=== PATIENT | male | born 1945 | race Caucasian/White ===

== ENCOUNTER 2016-11-28 05:39 | Emergency (ER) | payer MEDICARE, OTHER ==
--- NOTE | 2016-11-28 05:49 | ED ---
Fall HPI - General Chief Complaint: Fall Stated Complaint: fall Time Seen by Provider: 11/28/16 05:39 Source: patient, EMS, RN notes reviewed Mode of arrival: EMS - History of Present Illness Initial Comments: This is a 71-year-old male who states he slipped on a wet floor and fell he complains of pain in his left shoulder neck and some head pain. He denies any loss of function denies any loss of consciousness no other injuries are reported. He was brought in by EMS. MD Complaint: fall - Related Data Home Medications Medication Instructions Recorded Confirmed Albuterol Sulfate [Proair Hfa] 2 puff INHALATION RT-Q4H PRN 10/05/15 03/19/16 Ezetimibe [Zetia] 10 mg PO DAILY 10/05/15 03/19/16 FLUoxetine HCL [PROzac] 40 mg PO DAILY 10/05/15 03/19/16 Insulin Glargine [Lantus] 25 unit SQ DAILY 10/05/15 03/19/16 Lisinopril [Prinivil] 20 mg PO QAM 10/05/15 03/19/16 Loratadine [Claritin] 10 mg PO DAILY 10/05/15 03/19/16 Nitroglycerin Sl Tabs [Nitrostat] 0.4 mg SUBLINGUAL Q5M PRN 10/05/15 03/19/16 Omeprazole [PriLOSEC] 20 mg PO DAILY 10/05/15 03/19/16 Propylene Glycol/Peg 400/Pf 1 drop BOTH EYES BID PRN 10/05/15 03/19/16 [Systane 0.3-0.4% Eye Drops] Sennosides-Docusate Sodium 1 tab PO QAM 10/05/15 03/19/16 [Senokot-S] hydrALAZINE HCL [Apresoline] 10 mg PO BID 10/05/15 03/19/16 metFORMIN HCL [metFORMIN HCL ER] 1,500 mg PO DAILY 10/05/15 03/19/16 Acetaminophen [Tylenol] 500 mg PO Q6H PRN 02/05/16 03/19/16 Atenolol [Tenormin] 50 mg PO DAILY 02/05/16 03/19/16 Certa-Chhaya S R 1 tab PO DAILY 02/05/16 03/19/16 Cholecalciferol [Vitamin D3] 2,000 unit PO DAILY 02/05/16 03/19/16 guaiFENesin [Mucinex] 600 mg PO BID 02/05/16 03/19/16 Budesonide-Formot 160-4.5 Mcg 2 puff INHALATION RT-BID 03/19/16 03/19/16 [Symbicort 160-4.5 Mcg Inhaler] Ipratropium-Albuterol Nebulize 3 ml INHALATION RT-Q4H PRN 03/19/16 03/19/16 [Duoneb 0.5 mg-3 mg/3 ml Soln] Meloxicam [Meloxicam] 15 mg PO DAILY 03/19/16 03/19/16 Perphenazine [Perphenazine] 8 mg PO DAILY 03/19/16 03/19/16 predniSONE See Taper PO DAILY 03/19/16 03/19/16 Previous Rx's Medication Instructions Recorded Furosemide [Lasix] 20 mg PO BID #60 tab 02/08/16 Ciprofloxacin HCl [Cipro] 500 mg PO Q12HR #20 tablet 03/19/16 predniSONE 20 mg PO BID #14 tab 03/19/16 Ibuprofen [Motrin] 800 mg PO Q6HR PRN #20 tab 11/28/16 Allergies Allergy/AdvReac Type Severity Reaction Status Date / Time cephalexin monohydrate Allergy Unknown Verified 03/19/16 13:37 [From Keflex] Penicillins Allergy Unknown Verified 03/19/16 13:37 Review of Systems ROS Statement: Those systems with pertinent positive or pertinent negative responses have been documented in the HPI. ROS Other: All systems not noted in ROS Statement are negative. Past Medical History Past Medical History: COPD, Diabetes Mellitus, GERD/Reflux, Hyperlipidemia Additional Past Medical History / Comment(s): dry eyes, Myalgia, Type 2 DM History of Any Multi-Drug Resistant Organisms: None Reported Past Surgical History: Cholecystectomy Past Anesthesia/Blood Transfusion Reactions: No Reported Reaction Past Psychological History: No Psychological Hx Reported, Depression, Schizophrenia Smoking Status: Current every day smoker Past Alcohol Use History: None Reported Additional Past Alcohol Use History / Comment(s): smokes: 1ppd Past Drug Use History: None Reported - Past Family History Mother History Unknown: Yes Father History Unknown: Yes General Exam - General Exam Comments Initial Comments: This is a well-developed well-nourished awake alert oriented 3 male he does demonstrate a [place] Coma Scale of 15 General appearance: alert, in no apparent distress Head exam: Present: normocephalic, normal inspection, other (Tenderness palpation over the occipital scalp on the left side.) Eye exam: Present: normal appearance, PERRL, EOMI. Absent: scleral icterus, conjunctival injection, periorbital swelling ENT exam: Present: normal exam, mucous membranes moist Neck exam: Present: normal inspection, tenderness, other (Tenderness over left lateral neck musculature no spinous process tenderness. Patient does have a cervical collar on.). Absent: lymphadenopathy Respiratory exam: Present: normal lung sounds bilaterally, chest wall tenderness (Left-sided chest wall tenderness no ecchymosis step-off or crepitation). Absent: respiratory distress, wheezes, rales, rhonchi, stridor Cardiovascular Exam: Present: regular rate, normal rhythm, normal heart sounds. Absent: systolic murmur, diastolic murmur, rubs, gallop, clicks GI/Abdominal exam: Present: soft, normal bowel sounds. Absent: distended, tenderness, guarding, rebound, rigid Rectal exam: Present: deferred Extremities exam: Present: tenderness (Tenderness palpation of left shoulder no definite deformity no definite no definite subluxation step-off or crepitation. Patient is in a sling with a left upper extremity limited range of motion secondary to pain no tenderness of the elbow or forearm or hand the other extremities are nontraumatic), normal capillary refill. Absent: full ROM, pedal edema, joint swelling, calf tenderness Back exam: Present: normal inspection Neurological exam: Present: alert, oriented X3, CN II-XII intact Psychiatric exam: Present: normal affect, normal mood Course Vital Signs 11/28/16 05:43 Temperature 97.7 F Pulse Rate 85 Respiratory 16 Rate Blood Pressure 167/86 O2 Sat by Pulse 98 Oximetry Medical Decision Making - Medical Decision Making I did discuss the findings with the patient he will be discharged with sling and appropriate pain medication is a follow-up orthopedics. - Radiology Data Radiology results: report reviewed (I did review the x-rays and reports are pending there is evidence of a proximal humerus fracture. No evidence of any subluxation. She has ribs show no definite evidence of fracture. CAT scan is unremarkable as per the report and evaluation.), image reviewed Disposition Clinical Impression: Fall, Closed fracture of left proximal humerus Disposition: HOME SELF-CARE Condition: Good Instructions: Fall Prevention for Older Adults (ED), Proximal Humerus Fracture (ED) Prescriptions: Ibuprofen [Motrin] 800 mg PO Q6HR PRN #20 tab PRN Reason: Pain Referrals: Gertrude El DO [Primary Care Provider] - 1-2 days Wesley Peters DO [Doctor of Osteopathic Medicine] - 1-2 days
--- NOTE | 2016-11-28 06:19 | CT ---
EXAM: CT Head Without Intravenous Contrast. CLINICAL HISTORY: Pain TECHNIQUE: Axial computed tomography images of the head/brain without intravenous contrast. CTDI is 57.4 mGy and DLP is 1150.5 mGy-cm This CT exam was performed using one or more of the following dose reduction techniques: automated exposure control, adjustment of the mA and/or kV according to patient size, and/or use of iterative reconstruction technique. COMPARISON: No relevant prior studies available. FINDINGS: Brain: No evidence of acute infarct, hemorrhage, mass or edema. Chronic small vessel skin disease and senescent changes. Ventricles: Unremarkable. No ventriculomegaly. Bones/joints: Age interval fracture of the right nasal bone. Soft tissues: Unremarkable. Sinuses: Minimal mucosal thickening in the paranasal sinuses. Mastoid air cells: Unremarkable as visualized. No mastoid effusion. IMPRESSION: No acute findings. EXAM: CT Cervical Spine Without Intravenous Contrast. CLINICAL HISTORY: Pain TECHNIQUE: Axial computed tomography images of the cervical spine without intravenous contrast. CTDI is 35.9 mGy and DLP is 756.3 mGy-cm This CT exam was performed using one or more of the following dose reduction techniques: automated exposure control, adjustment of the mA and/or kV according to patient size, and/or use of iterative reconstruction technique. COMPARISON: No relevant prior studies available. FINDINGS: Vertebrae: Unremarkable. No acute fracture. Discs/spinal canal/neural foramina: Multilevel degenerative changes. No spinal canal stenosis. Soft tissues: Unremarkable. Lung apices: Emphysematous changes. IMPRESSION: No acute findings.
[2016-11-28] MEDS ORDERED: ACETAMINOPHEN TAB 500 MG TAB PO STA (07:32)
[2016-11-28 07:53] VITALS: BP 162/79; PULSE 80; RESP 18; TEMP 97.8
--- NOTE | 2016-11-28 08:19 | XR ---
EXAMINATION TYPE: PA chest and left rib series XR shoulder complete 3 views LT DATE OF EXAM: 11/28/2016 7:02 AM COMPARISON: Chest radiograph 03/19/2016 HISTORY: 71-year-old male with pain after fall FINDINGS: Chest and left RIBS: Heart remains mildly enlarged with diffuse interstitial prominence. Left base is underpenetrated and not well assessed. No appreciable pneumothorax or significant pleural effusion. No displaced left rib fracture. Left shoulder: AC joint appears congruent and intact. There is a minimally displaced fracture of the greater tubero sity. No additional acute fracture seen. IMPRESSION: 1. Chest: Similar mild cardiomegaly and chronic appearing changes. Correlate to exclude mild pulmonar y vascular congestion. The left base is underpenetrated and not well assessed. 2. Left ribs: No displaced left rib fracture seen. 3. Left shoulder: Minimally displaced fracture of the greater tuberosity. Note that this can serve as a functional rotator cuff tear.
== END 2016-11-28 08:44 | disposition home or self-care (01) ==
LOC: EC 05:39
DX: S42.252A Displaced fracture of greater tuberosity of left humerus, initial encounter for closed fracture (principal); M54.2 Cervicalgia; R51 Headache; R07.89 Other chest pain; E78.5 Hyperlipidemia, unspecified; E11.9 Type 2 diabetes mellitus without complications; K21.9 Gastro-esophageal reflux disease without esophagitis; J44.9 Chronic obstructive pulmonary disease, unspecified; F20.9 Schizophrenia, unspecified; F32.9 Major depressive disorder, single episode, unspecified; F17.200 Nicotine dependence, unspecified, uncomplicated; Z79.1 Long term (current) use of non-steroidal anti-inflammatories (NSAID); Z79.4 Long term (current) use of insulin; Z79.51 Long term (current) use of inhaled steroids; Z79.899 Other long term (current) drug therapy; Z88.0 Allergy status to penicillin; Z88.1 Allergy status to other antibiotic agents; Z87.39 Personal history of other diseases of the musculoskeletal system and connective tissue; W01.0XXA Fall on same level from slipping, tripping and stumbling without subsequent striking against object, initial encounter
CPT/HCPCS: 70450; 72125; 99284

== ENCOUNTER 2016-12-05 08:09 | Inpatient (IN) | payer MEDICARE, OTHER ==
[2016-12-05 08:43] LABS: Basophils % (A) 0 %; CH 32.3; CHCM 33.3; Eosinophils # (A) 0.1 k/uL (0-0.7); Eosinophils % (A) 2 %; Luc # (Auto) 0.15; Luc % (Auto) 2; Lymphocytes # (A) 1.1 k/uL (1.0-4.8); Lymphocytes % (A) 16 %; MCH 31.7 pg (25.0-35.0); MCHC 32.5 g/dL (31.0-37.0); MCV 97.5 fL (80.0-100.0); Mean Platelet Volume 6.8; Monocytes # (A) 0.6 k/uL (0-1.0); Monocytes % (A) 9 %; Neutrophils % (A) 71 %; RBC 4.11 m/uL (4.30-5.90); RDW 14.1 % (11.5-15.5); WBC 7.1 k/uL (3.8-10.6); WBC (Perox) 7.61
[2016-12-05 08:54] LABS: ALT 39 U/L (21-72); AST 27 U/L (17-59); Alkaline Phosphatase 74 U/L (38-126); Anion Gap 9 mmol/L; Blood Urea Nitrogen 26 mg/dL (9-20); Calcium 9.8 mg/dL (8.4-10.2); Carbon Dioxide 27 mmol/L (22-30); Chloride 99 mmol/L (98-107); Glucose 159 mg/dL (74-99); Magnesium 1.5 mg/dL (1.6-2.3); Non-African American GFR(MDRD) >60 (>60 ml/min/1.73 sqM); Potassium 4.9 mmol/L (3.5-5.1); Sodium 135 mmol/L (137-145); Total Bilirubin 0.7 mg/dL (0.2-1.3); Total Protein 6.8 g/dL (6.3-8.2)
--- NOTE | 2016-12-05 09:00 | ED ---
General Adult HPI - General Chief complaint: Chest Pain Stated complaint: chest pain RUBA Time Seen by Provider: 12/05/16 08:33 Source: patient, RN notes reviewed, old records reviewed Mode of arrival: wheelchair Limitations: no limitations - History of Present Illness Initial comments: This is a 71-year-old male here today for evaluation of chest pain and rib pain fall. Weakness. Patient has history of heart disease. He also has history of COPD diabetes and high cholesterol. Patient is unsure of any recent cardiac evaluation. No fevers. No cough or congestion. Patient does from fall have bruising and contusion to left rib cage, left arm. He states that is painful for him. Patient is a baseline poor historian, and appears to trouble and difficulty with speech and breathing during conversation. History is otherwise obtained from EMS and patient's chart - Related Data Home Medications Medication Instructions Recorded Confirmed Albuterol Sulfate [Proair Hfa] 2 puff INHALATION RT-Q4H PRN 10/05/15 12/05/16 Ezetimibe [Zetia] 10 mg PO DAILY 10/05/15 12/05/16 FLUoxetine HCL [PROzac] 40 mg PO DAILY 10/05/15 12/05/16 Insulin Glargine [Lantus] 30 unit SQ DAILY 10/05/15 12/05/16 Loratadine [Claritin] 10 mg PO DAILY 10/05/15 12/05/16 Nitroglycerin Sl Tabs [Nitrostat] 0.4 mg SUBLINGUAL Q5M PRN 10/05/15 12/05/16 Omeprazole [PriLOSEC] 20 mg PO DAILY 10/05/15 12/05/16 Propylene Glycol/Peg 400/Pf 1 drop BOTH EYES BID PRN 10/05/15 12/05/16 [Systane 0.3-0.4% Eye Drops] Sennosides-Docusate Sodium 1 tab PO QAM 10/05/15 12/05/16 [Senokot-S] hydrALAZINE HCL [Apresoline] 10 mg PO TID 10/05/15 12/05/16 metFORMIN HCL [metFORMIN HCL ER] 1,500 mg PO DAILY 10/05/15 12/05/16 Atenolol [Tenormin] 50 mg PO DAILY 02/05/16 12/05/16 Certa-Chhaya S R 1 tab PO DAILY 02/05/16 12/05/16 Cholecalciferol [Vitamin D3] 5,000 unit PO DAILY 02/05/16 12/05/16 guaiFENesin [Mucinex] 600 mg PO BID 02/05/16 12/05/16 Budesonide-Formot 160-4.5 Mcg 2 puff INHALATION RT-BID 03/19/16 12/05/16 [Symbicort 160-4.5 Mcg Inhaler] Ipratropium-Albuterol Nebulize 3 ml INHALATION RT-Q4H PRN 03/19/16 12/05/16 [Duoneb 0.5 mg-3 mg/3 ml Soln] Meloxicam [Meloxicam] 15 mg PO DAILY 03/19/16 12/05/16 Isosorbide Mononitrate 20 mg PO BID@0800,1500 11/28/16 12/05/16 Lisinopril [Zestril] 40 mg PO DAILY 11/28/16 12/05/16 Perphenazine [Trilafon] 4 mg PO DAILY@1700 11/28/16 12/05/16 Perphenazine [Trilafon] 8 mg PO DAILY 11/28/16 12/05/16 Simvastatin [Zocor] 20 mg PO HS 11/28/16 12/05/16 Tiotropium 18 Mcg/Puff [Spiriva] 1 cap INHALATION RT-DAILY 11/28/16 12/05/16 Acetaminophen Tab [Tylenol Tab] 500 mg PO Q6H PRN 12/05/16 12/05/16 Furosemide [Lasix] 20 mg PO BID@0800,1600 12/05/16 12/05/16 Allergies Allergy/AdvReac Type Severity Reaction Status Date / Time cephalexin monohydrate Allergy Unknown Verified 12/05/16 09:31 [From Keflex] Penicillins Allergy Unknown Verified 12/05/16 09:31 Review of Systems ROS Statement: Those systems with pertinent positive or pertinent negative responses have been documented in the HPI. ROS Other: All systems not noted in ROS Statement are negative. Past Medical History Past Medical History: COPD, Diabetes Mellitus, GERD/Reflux, Hyperlipidemia Additional Past Medical History / Comment(s): dry eyes, Myalgia, Type 2 DM History of Any Multi-Drug Resistant Organisms: None Reported Past Surgical History: Cholecystectomy Past Anesthesia/Blood Transfusion Reactions: No Reported Reaction Past Psychological History: No Psychological Hx Reported, Depression, Schizophrenia Smoking Status: Current every day smoker Past Alcohol Use History: None Reported Additional Past Alcohol Use History / Comment(s): smokes: 1ppd Past Drug Use History: None Reported - Past Family History Mother History Unknown: Yes Father History Unknown: Yes General Exam - General Exam Comments Initial Comments: Left arm ecchymosis left chest wall ecchymosis Limitations: no limitations General appearance: alert, in no apparent distress Head exam: Present: atraumatic, normocephalic, normal inspection Eye exam: Present: normal appearance, PERRL, EOMI. Absent: scleral icterus, conjunctival injection, periorbital swelling ENT exam: Present: normal exam, mucous membranes moist Neck exam: Present: normal inspection. Absent: tenderness, meningismus, lymphadenopathy Respiratory exam: Present: normal lung sounds bilaterally. Absent: respiratory distress, wheezes, rales, rhonchi, stridor Cardiovascular Exam: Present: regular rate, normal rhythm, normal heart sounds. Absent: systolic murmur, diastolic murmur, rubs, gallop, clicks GI/Abdominal exam: Present: soft, normal bowel sounds. Absent: distended, tenderness, guarding, rebound, rigid Extremities exam: Present: normal inspection, full ROM, normal capillary refill. Absent: tenderness, pedal edema, joint swelling, calf tenderness Back exam: Present: normal inspection Neurological exam: Present: alert, oriented X3, CN II-XII intact Psychiatric exam: Present: normal affect, normal mood Skin exam: Present: warm, dry, intact, normal color. Absent: rash Course Vital Signs 12/05/16 12/05/16 08:24 08:37 Temperature 97.1 F L Pulse Rate 77 Respiratory 16 24 Rate Blood Pressure 131/78 O2 Sat by Pulse 93 L Oximetry - Reevaluation(s) Reevaluation #1: 12/05/16 10:17 Patient survey with chest pain, EKG Findings - EKG Comments: EKG Findings:: EKG shows normal sinus rhythm questionable T-wave inversion in anterolateral leads, rate of 74, PA 164, QRS 72, QTC 428. Repeat. EKG shows similar morphology to an initial EKG, normal sinus rhythm rate of 65, PA 158, QRS 92, QTC 426 Medical Decision Making - Medical Decision Making 71 Eric for evaluation of chest pain chest pressure. Patient be admitted for cardiac observation and evaluation. Patient also mildly short of breath, will put on when necessary breathing treatments. Patient will be admitted for serial troponins and cardiac observation - Lab Data Result diagrams: 12/05/16 08:31 12/05/16 08:31 Lab Results 12/05/16 12/05/16 12/05/16 Range/Units 08:31 08:31 08:31 WBC 7.1 (3.8-10.6) k/uL RBC 4.11 L (4.30-5.90) m/uL Hgb 13.0 (13.0-17.5) gm/dL Hct 40.0 (39.0-53.0) % MCV 97.5 (80.0-100.0) fL MCH 31.7 (25.0-35.0) pg MCHC 32.5 (31.0-37.0) g/dL RDW 14.1 (11.5-15.5) % Plt Count 225 (150-450) k/uL Neutrophils % 71 % Lymphocytes % 16 % Monocytes % 9 % Eosinophils % 2 % Basophils % 0 % Neutrophils # 5.0 (1.3-7.7) k/uL Lymphocytes # 1.1 (1.0-4.8) k/uL Monocytes # 0.6 (0-1.0) k/uL Eosinophils # 0.1 (0-0.7) k/uL Basophils # 0.0 (0-0.2) k/uL PT (9.0-12.0) sec INR (<1.1) APTT (22.0-30.0) sec Sodium 135 L (137-145) mmol/L Potassium 4.9 (3.5-5.1) mmol/L Chloride 99 (98-107) mmol/L Carbon Dioxide 27 (22-30) mmol/L Anion Gap 9 mmol/L BUN 26 H (9-20) mg/dL Creatinine 1.07 (0.66-1.25) mg/dL Est GFR (MDRD) Af Amer >60 (>60 ml/min/1.73 sqM) Est GFR (MDRD) Non-Af >60 (>60 ml/min/1.73 sqM) Glucose 159 H (74-99) mg/dL Calcium 9.8 (8.4-10.2) mg/dL Magnesium 1.5 L (1.6-2.3) mg/dL Total Bilirubin 0.7 (0.2-1.3) mg/dL AST 27 (17-59) U/L ALT 39 (21-72) U/L Alkaline Phosphatase 74 (38-126) U/L Total Creatine Kinase 209 H (55-170) U/L CK-MB (CK-2) 4.6 H* (0.0-2.4) ng/mL CK-MB (CK-2) Rel Index 2.2 Troponin I <0.012 (0.000-0.034) ng/mL NT-Pro-B Natriuret Pep pg/mL Total Protein 6.8 (6.3-8.2) g/dL Albumin 3.7 (3.5-5.0) g/dL Lipase 46 (23-300) U/L 12/05/16 12/05/16 Range/Units 08:31 08:31 WBC (3.8-10.6) k/uL RBC (4.30-5.90) m/uL Hgb (13.0-17.5) gm/dL Hct (39.0-53.0) % MCV (80.0-100.0) fL MCH (25.0-35.0) pg MCHC (31.0-37.0) g/dL RDW (11.5-15.5) % Plt Count (150-450) k/uL Neutrophils % % Lymphocytes % % Monocytes % % Eosinophils % % Basophils % % Neutrophils # (1.3-7.7) k/uL Lymphocytes # (1.0-4.8) k/uL Monocytes # (0-1.0) k/uL Eosinophils # (0-0.7) k/uL Basophils # (0-0.2) k/uL PT 11.2 (9.0-12.0) sec INR 1.1 (<1.1) APTT 25.9 (22.0-30.0) sec Sodium (137-145) mmol/L Potassium (3.5-5.1) mmol/L Chloride (98-107) mmol/L Carbon Dioxide (22-30) mmol/L Anion Gap mmol/L BUN (9-20) mg/dL Creatinine (0.66-1.25) mg/dL Est GFR (MDRD) Af Amer (>60 ml/min/1.73 sqM) Est GFR (MDRD) Non-Af (>60 ml/min/1.73 sqM) Glucose (74-99) mg/dL Calcium (8.4-10.2) mg/dL Magnesium (1.6-2.3) mg/dL Total Bilirubin (0.2-1.3) mg/dL AST (17-59) U/L ALT (21-72) U/L Alkaline Phosphatase (38-126) U/L Total Creatine Kinase (55-170) U/L CK-MB (CK-2) (0.0-2.4) ng/mL CK-MB (CK-2) Rel Index Troponin I (0.000-0.034) ng/mL NT-Pro-B Natriuret Pep 816 pg/mL Total Protein (6.3-8.2) g/dL Albumin (3.5-5.0) g/dL Lipase (23-300) U/L - Radiology Data Radiology results: report reviewed (Chest x-ray is negative for acute disease), image reviewed Critical Care Time Critical Care Time: Yes Total Critical Care Time: 31 Disposition Clinical Impression: Chest pain, CHF (congestive heart failure), Dyspnea Disposition: ADMITTED IP TO THIS [facility] Condition: Undetermined Referrals: Gertrude El DO [Primary Care Provider] - 1-2 days
[2016-12-05 09:02] LABS: INR 1.1 (<1.1); Partial Thromboplastin Time 25.9 sec (22.0-30.0); Prothrombin Time 11.2 sec (9.0-12.0)
[2016-12-05 09:07] LABS: Creatine Kinase 209 U/L (55-170)
[2016-12-05 09:21] LABS: Troponin I <0.012 ng/mL (0.000-0.034)
--- NOTE | 2016-12-05 09:24 | XR ---
EXAMINATION TYPE: XR chest 2V DATE OF EXAM: 12/05/2016 9:17 AM COMPARISON: NONE INDICATION: Chest pain TECHNIQUE: 2 view chest FINDINGS: The heart size is normal. The pulmonary vasculature is normal. The lungs are clear. Lateral view is limited artifact. IMPRESSION: 1. No acute pulmonary process.
[2016-12-05 09:27] LABS: Creatine Kinase MB 4.6 ng/mL (0.0-2.4)
[2016-12-05] MEDS ORDERED: HEPARIN SODIUM,PORCINE 5,000 UNIT/ML 1 ML VIAL IV ONE (10:37)
[2016-12-05] MEDS ORDERED: MORPHINE SULFATE 2 MG/ML SYRINGE IVP STA (10:37)
[2016-12-05] MEDS ORDERED: ASPIRIN 81 MG CHEW PO STA (10:37)
[2016-12-05] MEDS ORDERED: NITROGLYCERIN SL TABS 0.4 MG TAB SUBLINGUAL PRN ×2 (10:37→11:27)
[2016-12-05] MEDS: SODIUM CHLORIDE 0.9% 1,000 ML IV SCH (10:51)
[2016-12-05] MEDS: HEPARIN SODIUM,PORCINE/D5W PMX 25,000 UNIT in DEXTROSE/WATER 1 500ML.BAG IV SCH ×2 (10:51→17:35)
[2016-12-05] MEDS: MORPHINE SULFATE 4 MG/ML SYRINGE IV PRN ×3 (10:55→22:58)
[2016-12-05] MEDS ORDERED: ALBUTEROL NEBULIZED 2.5 MG/3 ML INHALATION PRN (11:27)
[2016-12-05] MEDS ORDERED: ARTIFICIAL TEARS-HYPROMELLOSE DROPS 15 ML BTL BOTH EYES PRN (11:27)
[2016-12-05] MEDS: EZETIMIBE 10 MG TAB PO SCH (11:57)
[2016-12-05] MEDS: ATENOLOL 50 MG TAB PO SCH (11:57)
[2016-12-05] MEDS: hydrALAZINE HCL 10 MG TAB PO SCH ×3 (11:58→22:41)
[2016-12-05] MEDS: guaiFENesin 600 MG TABLET.ER PO SCH ×2 (11:58→22:41)
[2016-12-05] MEDS: FLUoxetine HCL 20 MG CAP PO SCH (11:58)
[2016-12-05] MEDS: LISINOPRIL 20 MG TAB PO SCH (11:59)
[2016-12-05] MEDS: metFORMIN 500 MG TAB PO SCH ×3 (11:59→22:41)
[2016-12-05] MEDS: ISOSORBIDE MONONITRATE 20 MG TAB PO SCH ×2 (11:59→15:57)
[2016-12-05] MEDS: INSULIN GLARGINE 100 UNIT/ML 10 ML VIAL SQ SCH (11:59)
[2016-12-05] MEDS: PERPHENAZINE 4 MG TAB PO SCH ×2 (12:00→15:57)
[2016-12-05] MEDS: PANTOPRAZOLE 40 MG TABLET PO SCH (12:00)
[2016-12-05] MEDS: SENNOSIDES-DOCUSATE SODIUM 1 EACH TAB PO SCH (12:01)
[2016-12-05 12:18] LABS: Glucose,Whole Blood 144 mg/dL (75-99)
[2016-12-05 14:53] LABS: Creatine Kinase 150 U/L (55-170)
[2016-12-05 15:05] LABS: Creatine Kinase MB 3.5 ng/mL (0.0-2.4); Troponin I <0.012 ng/mL (0.000-0.034)
[2016-12-05] MEDS: FUROSEMIDE 20 MG TAB PO SCH (15:57)
[2016-12-05 17:14] LABS: Glucose,Whole Blood 156 mg/dL (75-99)
[2016-12-05] MEDS: HEPARIN SODIUM,PORCINE 5,000 UNIT/ML 1 ML VIAL IV PRN (17:34)
[2016-12-05] MEDS: SYMBICORT 160-4.5 MCG INHALER INHALATION SCH (19:28)
[2016-12-05 20:41] LABS: Glucose,Whole Blood 126 mg/dL (75-99)
[2016-12-05] MEDS: BUDESONIDE 1 MG/2 ML NEBU INHALATION SCH (22:33)
[2016-12-05] MEDS: IPRATROPIUM-ALBUTEROL 3 ML NEB INHALATION SCH (22:33)
[2016-12-05] MEDS: ATORVASTATIN 10 MG TAB PO SCH (22:41)
[2016-12-05] MEDS: NICOTINE 21MG/24HR PATCH TRANSDERM SCH (23:01)
[2016-12-05] MEDS: methylPREDNISolone SOD SUCCI 40 MG/ML 1 ML VIAL IV SCH (23:01)
[2016-12-05 23:14] LABS: Creatine Kinase 147 U/L (55-170)
[2016-12-05 23:28] LABS: Troponin I <0.012 ng/mL (0.000-0.034)
[2016-12-05 23:36] LABS: Creatine Kinase MB 3.1 ng/mL (0.0-2.4)
[2016-12-06] MEDS: IPRATROPIUM-ALBUTEROL 3 ML NEB INHALATION SCH ×6 (01:04→20:03)
[2016-12-06] MEDS: HEPARIN SODIUM,PORCINE 5,000 UNIT/ML 1 ML VIAL IV PRN (01:29)
[2016-12-06] MEDS: HEPARIN SODIUM,PORCINE/D5W PMX 25,000 UNIT in DEXTROSE/WATER 1 500ML.BAG IV SCH (06:05)
[2016-12-06 07:36] LABS: Glucose,Whole Blood 201 mg/dL (75-99)
[2016-12-06 07:38] LABS: Mean Platelet Volume 6.7
[2016-12-06 07:58] LABS: Cholesterol 136 mg/dL (<200); HDL Cholesterol 44 mg/dL (40-60); Triglycerides 120 mg/dL (<150)
[2016-12-06] MEDS: BUDESONIDE 1 MG/2 ML NEBU INHALATION SCH ×2 (10:07→20:03)
[2016-12-06] MEDS: SYMBICORT 160-4.5 MCG INHALER INHALATION SCH ×2 (10:07→20:03)
--- NOTE | 2016-12-06 10:40 | P.CRDCN ---
History of Present Illness Consult date: 12/06/16 History of present illness: This is a 70-year-old gentleman with history of hypertension, diabetes, dyslipidemia, and also COPD who came to the hospital with complaints of left arm and chest pain. Apparently he fell and developed some contusion and ecchymosis involving the left upper arm. X-rays done on the showed some possible fracture or tear in the rotator cuff. The the pain in the chest is aggravated by deep breathing associated some local tenderness. His pains appear to be atypical. His EKG showed nonspecific T-wave changes. His cardiac enzymes are negative. A computed tomography scan done in the past showed some calcification in the coronary arteries. It appears that patient may have underlying ischemic heart disease but his pains are noncardiac in nature. Patient is already on beta blockers, nitrates and lipid-lowering agents. He should be on antiplatelet agent. No further cardiac workup is suggested at this time Review of Systems As per the chart Past Medical History Past Medical History: Heart Failure, COPD, Diabetes Mellitus, Fibromyalgia, GERD /Reflux, Hyperlipidemia, Hypertension Additional Past Medical History / Comment(s): IDDM type II, neuropathy bilateral feet with past sores, refuses home oxygen and updraft tx, L eye thick cataract, bilateral dry eyes, fatty tumor posterior neck, recent fall 1 week ago with L humerus fracture-not casted-uses a sling-orhtopedic physician instructed he can use arm minimally-no lifting shoulder up or picking up weight , possible hx of kidney stones per pt. History of Any Multi-Drug Resistant Organisms: None Reported Past Surgical History: Cholecystectomy Additional Past Surgical History / Comment(s): Possible hx of surgery for kidney stones per pt. Past Anesthesia/Blood Transfusion Reactions: No Reported Reaction Past Psychological History: Depression, Schizophrenia Additional Psychological History / Comment(s): Pt resides at [facility]. He ambulates without device. He has visiting physician and visiting nurse. He refuses home O2 and home updraft txs. Pt recently learned his 2 out of state sisters are selling the family home. This has made him sad and when he is sad, he gets more obstenate with meds etc per caretakers. His sisters send him letters and care packages often. He writes letters as well. Smoking Status: Current every day smoker Past Alcohol Use History: None Reported Additional Past Alcohol Use History / Comment(s): Smokes cigarettes : 1.5 ppd, occasional cigar and pipe. Past Drug Use History: None Reported - Past Family History Mother History Unknown: Yes Father History Unknown: Yes Medications and Allergies Home Medications Medication Instructions Recorded Confirmed Type Albuterol Sulfate [Proair Hfa] 2 puff INHALATION RT-Q4H PRN 10/05/15 12/05/16 History Ezetimibe [Zetia] 10 mg PO DAILY 10/05/15 12/05/16 History FLUoxetine HCL [PROzac] 40 mg PO DAILY 10/05/15 12/05/16 History Insulin Glargine [Lantus] 30 unit SQ DAILY 10/05/15 12/05/16 History Loratadine [Claritin] 10 mg PO DAILY 10/05/15 12/05/16 History Nitroglycerin Sl Tabs [Nitrostat] 0.4 mg SUBLINGUAL Q5M PRN 10/05/15 12/05/16 History Omeprazole [PriLOSEC] 20 mg PO DAILY 10/05/15 12/05/16 History Propylene Glycol/Peg 400/Pf 1 drop BOTH EYES BID PRN 10/05/15 12/05/16 History [Systane 0.3-0.4% Eye Drops] Sennosides-Docusate Sodium 1 tab PO QAM 10/05/15 12/05/16 History [Senokot-S] hydrALAZINE HCL [Apresoline] 10 mg PO TID 10/05/15 12/05/16 History metFORMIN HCL [metFORMIN HCL ER] 1,500 mg PO DAILY 10/05/15 12/05/16 History Atenolol [Tenormin] 50 mg PO DAILY 02/05/16 12/05/16 History Certa-Chhaya S R 1 tab PO DAILY 02/05/16 12/05/16 History Cholecalciferol [Vitamin D3] 5,000 unit PO DAILY 02/05/16 12/05/16 History guaiFENesin [Mucinex] 600 mg PO BID 02/05/16 12/05/16 History Budesonide-Formot 160-4.5 Mcg 2 puff INHALATION RT-BID 03/19/16 12/05/16 History [Symbicort 160-4.5 Mcg Inhaler] Ipratropium-Albuterol Nebulize 3 ml INHALATION RT-Q4H PRN 03/19/16 12/05/16 History [Duoneb 0.5 mg-3 mg/3 ml Soln] Meloxicam [Meloxicam] 15 mg PO DAILY 03/19/16 12/05/16 History Isosorbide Mononitrate 20 mg PO BID@0800,1500 11/28/16 12/05/16 History Lisinopril [Zestril] 40 mg PO DAILY 11/28/16 12/05/16 History Perphenazine [Trilafon] 4 mg PO DAILY@1700 11/28/16 12/05/16 History Perphenazine [Trilafon] 8 mg PO DAILY 11/28/16 12/05/16 History Simvastatin [Zocor] 20 mg PO HS 11/28/16 12/05/16 History Tiotropium 18 Mcg/Puff [Spiriva] 1 cap INHALATION RT-DAILY 11/28/16 12/05/16 History Acetaminophen Tab [Tylenol Tab] 500 mg PO Q6H PRN 12/05/16 12/05/16 History Furosemide [Lasix] 20 mg PO BID@0800,1600 12/05/16 12/05/16 History Paliperidone IM [Invega Sustenna] 234 mg IM DIRECTED 12/06/16 12/06/16 History Allergies Allergy/AdvReac Type Severity Reaction Status Date / Time cephalexin monohydrate Allergy Unknown Verified 12/05/16 09:31 [From Keflex] Penicillins Allergy Unknown Verified 12/05/16 09:31 Physical Exam Vitals: Vital Signs Temp Pulse Pulse Pulse Resp BP BP 12/06/16 08:00 98.9 F 67 18 129/82 12/06/16 04:00 97.9 F 81 24 138/88 12/06/16 00:00 98.5 F 68 22 144/79 12/05/16 20:30 98.2 F 73 18 150/71 12/05/16 20:00 20 12/05/16 16:06 77 12/05/16 16:00 97.8 F 77 18 167/107 12/05/16 12:00 70 18 12/05/16 11:50 98.7 F 70 18 133/74 12/05/16 11:00 66 18 138/80 Pulse Ox 12/06/16 08:00 94 L 12/06/16 04:00 93 L 12/06/16 00:00 93 L 12/05/16 20:30 95 12/05/16 20:00 12/05/16 16:06 94 L 12/05/16 16:00 94 L 12/05/16 12:00 12/05/16 11:50 96 12/05/16 11:00 95 Intake and Output 12/05/16 12/06/16 12/06/16 22:59 06:59 14:59 Intake Total 465.161 6728.103 Output Total 1200 450 Balance 374.667 -193.897 -450 Intake: IV 270 Heparin Sodium,Porcine/ 270 D5w Pmx 25,000 unit In Dextrose/Water 1 500ml. bag @ 8.819 UNITS/KG/HR 20 mls/hr IV .Q24H [facility] Rx #:[id number] Intake, IV Titration 134.667 536.103 Amount Heparin Sodium,Porcine/ 134.667 356.103 D5w Pmx 25,000 unit In Dextrose/Water 1 500ml. bag @ 8.819 UNITS/KG/HR 20 mls/hr IV .Q24H [facility] Rx #:[id number] Sodium Chloride 0.9% 1, 180 000 ml @ 20 mls/hr IV . Q24H [facility] Rx#:[id number] Oral 240 200 Output: Urine 1200 450 Other: Voiding Method Toilet Toilet Toilet GENERAL EXAM: Patient is alert and oriented and doesn't appear to be in any acute distress. Sitting in the chair HEENT: Normocephalic. Normal reaction of pupils, equal size, normal range of extraocular motion. No erythema or exudates in the throat. NECK: No masses, no nuchal rigidity. CHEST: Tenderness on the left side LUNGS: Expiratory rhonchi and wheezing HEART: Distant heart sounds ABDOMEN: No hepatosplenomegaly, normal bowel sounds, no guarding or rigidity. SKIN: No rashes CENTRAL NERVOUS SYSTEM: No focal deficits. EXTREMITIES: Ecchymosis and resolving hematoma left upper arm Results 12/06/16 07:02 12/05/16 08:31 Cardiac Enzymes 12/05/16 12/05/16 Range/Units 14:18 22:23 CK-MB (CK-2) 3.5 H* 3.1 H* (0.0-2.4) ng/mL Troponin I <0.012 <0.012 (0.000-0.034) ng/mL Coagulation 12/05/16 12/05/16 12/06/16 Range/Units 16:44 22:23 07:02 APTT 32.7 H 40.4 H 43.8 H (22.0-30.0) sec Lipids 12/06/16 Range/Units 07:02 Triglycerides 120 (<150) mg/dL Cholesterol 136 (<200) mg/dL HDL Cholesterol 44 (40-60) mg/dL CBC 12/06/16 Range/Units 07:02 Plt Count 258 (150-450) k/uL Current Medications Generic Name Dose Route Start Last Admin Trade Name Freq PRN Reason Stop Dose Admin Albuterol Sulfate 2.5 mg 12/05/16 11:27 12/05/16 16:03 Ventolin Nebulized INHALATION 2.5 mg RT-Q4H PRN Administration Wheezing Albuterol/Ipratropium 3 ml 12/05/16 22:30 12/06/16 10:08 Duoneb 0.5 Mg-3 Mg/3 Ml Soln INHALATION Not Given RT-Q4H [facility] Artificial Tears 1 drops 12/05/16 11:27 Artificial Tear Drops BOTH EYES BID PRN Dry Eye(s) Aspirin 325 mg 12/06/16 09:00 Aspirin PO DAILY [facility] Atenolol 50 mg 12/05/16 11:45 12/05/16 11:57 Tenormin PO Not Given DAILY [facility] Atorvastatin Calcium 10 mg 12/05/16 21:00 12/05/16 22:41 Lipitor PO 10 mg HS [facility] Administration Budesonide 1 mg 12/05/16 22:30 12/06/16 10:07 Pulmicort INHALATION Not Given RT-BID [facility] Budesonide/Formoterol Fumarate 2 puff 12/05/16 20:00 12/06/16 10:07 Symbicort 160-4.5 Mcg Inhaler INHALATION Not Given RT-BID [facility] Ezetimibe 10 mg 12/05/16 11:45 12/05/16 11:57 Zetia PO Not Given DAILY [facility] Fluoxetine HCl 40 mg 12/05/16 11:45 12/05/16 11:58 Prozac PO Not Given DAILY [facility] Furosemide 20 mg 12/05/16 16:00 12/05/16 15:57 Lasix PO 20 mg BID@0800,1600 [facility] Administration Guaifenesin 600 mg 12/05/16 11:45 12/05/16 22:41 Mucinex PO 600 mg BID [facility] Administration Heparin Sodium (Porcine) 0 unit 12/05/16 10:37 12/06/16 01:29 Heparin IV 2,550 unit Q6HR PRN Administration Low PTT Protocol Hydralazine HCl 10 mg 12/05/16 11:45 12/05/16 22:41 Apresoline PO 10 mg TID [facility] Administration Heparin Sodium/Dextrose 25,000 500 mls @ 20 mls/hr 12/05/16 10:45 12/06/16 06 :05 unit/ IV Solution IV 13.8 units/kg/hr .Q24H [facility] 31.29 mls/hr Protocol Administration 8.819 UNITS/KG/HR Sodium Chloride 1,000 mls @ 20 mls/hr 12/05/16 10:45 12/05/16 10:51 Saline 0.9% IV 20 mls/hr .Q24H [facility] Administration Insulin Glargine 30 unit 12/05/16 11:45 12/05/16 11:59 Lantus SQ Not Given DAILY [facility] Isosorbide Mononitrate 20 mg 12/05/16 11:45 12/05/16 15:57 Ismo PO 20 mg BID@0800,1500 [facility] Administration Lisinopril 40 mg 12/05/16 11:45 12/05/16 11:59 Zestril PO Not Given DAILY [facility] Metformin HCl 500 mg 12/05/16 11:45 12/05/16 22:41 Glucophage PO 500 mg TID [facility] Administration Methylprednisolone Sodium Succinate 40 mg 12/06/16 00:00 12/05/16 23:01 Solu-Medrol IV 40 mg Q8HR [facility] Administration Morphine Sulfate 4 mg 12/05/16 10:37 12/05/16 22:58 Morphine Sulfate (Inj) IV 4 mg Q4HR PRN Administration Chest Pain Nicotine 1 patch 12/05/16 22:30 12/05/16 23:01 Habitrol 21mg/24hr Patch TRANSDERM 1 patch DAILY [facility] Administration Nitroglycerin 0.4 mg 12/05/16 10:37 Nitrostat SUBLINGUAL Q5M PRN Chest Pain Pantoprazole Sodium 40 mg 12/05/16 11:45 12/05/16 12:00 Protonix PO Not Given AC-BRKFST [facility] Perphenazine 4 mg 12/05/16 17:00 12/05/16 15:57 Trilafon PO 4 mg DAILY@1700 [facility] Administration Perphenazine 8 mg 12/05/16 11:45 12/05/16 12:00 Trilafon PO Not Given DAILY [facility] Senna/Docusate Sodium 1 each 12/05/16 11:45 12/05/16 12:01 Senokot-S PO Not Given QAM [facility] Tiotropium Amelia 1 puff 12/06/16 08:00 Spiriva INHALATION RT-DAILY [facility] Intake and Output 12/05/16 12/06/16 12/06/16 22:59 06:59 14:59 Intake Total 677.022 8949.103 Output Total 1200 450 Balance 374.667 -193.897 -450 Intake: IV 270 Heparin Sodium,Porcine/ 270 D5w Pmx 25,000 unit In Dextrose/Water 1 500ml. bag @ 8.819 UNITS/KG/HR 20 mls/hr IV .Q24H [facility] Rx #:[id number] Intake, IV Titration 134.667 536.103 Amount Heparin Sodium,Porcine/ 134.667 356.103 D5w Pmx 25,000 unit In Dextrose/Water 1 500ml. bag @ 8.819 UNITS/KG/HR 20 mls/hr IV .Q24H [facility] Rx #:[id number] Sodium Chloride 0.9% 1, 180 000 ml @ 20 mls/hr IV . Q24H [facility] Rx#:[id number] Oral 240 200 Output: Urine 1200 450 Other: Voiding Method Toilet Toilet Toilet 12/06/16 07:02 EKG Interpretations (text) Sinus rhythm with nonspecific T-wave changes Assessment and Plan (1) CHF (congestive heart failure) Status: Acute (2) Chest pain Status: Acute (3) COPD exacerbation Status: Acute (4) Diabetes Status: Acute Plan: His chest pains are atypical and noncardiac. Cardiac enzymes are negative. Continue pain management and maximum medical therapy for coronary artery disease. Evaluation by pulmonary. No further cardiac workup at this time. Thank you
[2016-12-06] MEDS: metFORMIN 500 MG TAB PO SCH ×3 (10:45→21:57)
[2016-12-06] MEDS: methylPREDNISolone SOD SUCCI 40 MG/ML 1 ML VIAL IV SCH ×2 (10:45→16:06)
[2016-12-06] MEDS: NICOTINE 21MG/24HR PATCH TRANSDERM SCH (10:45)
[2016-12-06] MEDS: FLUoxetine HCL 20 MG CAP PO SCH (10:46)
[2016-12-06] MEDS: hydrALAZINE HCL 10 MG TAB PO SCH ×3 (10:46→21:57)
[2016-12-06] MEDS: PERPHENAZINE 4 MG TAB PO SCH ×2 (10:46→18:03)
[2016-12-06] MEDS: SENNOSIDES-DOCUSATE SODIUM 1 EACH TAB PO SCH (10:46)
[2016-12-06] MEDS: LISINOPRIL 20 MG TAB PO SCH (10:46)
[2016-12-06] MEDS: EZETIMIBE 10 MG TAB PO SCH (10:46)
[2016-12-06] MEDS: ATENOLOL 50 MG TAB PO SCH (10:46)
[2016-12-06] MEDS: FUROSEMIDE 20 MG TAB PO SCH ×2 (10:47→16:07)
[2016-12-06] MEDS: ISOSORBIDE MONONITRATE 20 MG TAB PO SCH ×2 (10:47→18:03)
[2016-12-06] MEDS: PANTOPRAZOLE 40 MG TABLET PO SCH (10:47)
[2016-12-06] MEDS: guaiFENesin 600 MG TABLET.ER PO SCH ×2 (10:47→21:57)
[2016-12-06] MEDS: ASPIRIN 325 MG TAB PO SCH (10:47)
--- NOTE | 2016-12-06 10:52 | HP ---
DATE OF ADMISSION: 12/05/2016 PRESENTING COMPLAINT: Short of breath, cough and some chest pain. HISTORY OF PRESENTING COMPLAINT: This is a 71-year-old patient of Dr. Kathia Elder who is a resident of [facility]. The patient's chronic stable medical conditions include CHF, diastolic dysfunction, aortic root dilatation 3.9 cm, diabetes type 2, GERD, hyperlipidemia, fibromyalgia, schizophrenia. Patient presented with multitude of systems. Apparently patient fell about 2 to 3 days ago and was in the ER. In fact, on 11/28/2016 patient was found to have a minimally displaced fracture of the greater tuberosity and has a left arm splint. The patient said he slipped on the floor when this happened. Patient now presents with some left-sided chest wall pain. No radiation. He is not sure if it is worse with movement but possibly so. Patient is also very congested, able to bring up some phlegm, not sure about the color, short of breath, wheezing at rest. Patient is a smoker, he says about a pack and a half day. Really feels weak and tired. REVIEW OF SYSTEMS: CONSTITUTIONAL: Weak, tired. HEENT: None. RESPIRATORY: As above. CARDIOVASCULAR: As above. GASTROINTESTINAL: Heartburn. GENITOURINARY: None. MUSCULOSKELETAL: Pain in the left shoulder. DERMATOLOGICAL: None. HEMATOLOGICAL: None. LYMPHATIC: None. PSYCHIATRY: History of schizophrenia. NEUROLOGICAL: None. 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 PAST SURGICAL HISTORY: Cholecystectomy, surgery for kidney stones. PAST PSYCHOLOGICAL HISTORY: History of depression, schizophrenia. SOCIAL HISTORY: Patient lives at [facility], ambulates normally without device. He has Visiting Physician. Apparently he needed to have home oxygen, but refused the same. Patient smokes at least a pack and a half day, cigars and pipe. No alcohol. FAMILY HISTORY: Patient does not remember. HOME MEDICATIONS: 1. Nitrostat 0.4 sublingual q.5 p.r.n. 2. DuoNeb q.4 p.r.n. 3. Albuterol 2 puffs q.4 p.r.n. 4. Tylenol 500 q.6 p.r.n. 5. Zocor 20 mg q.h.s. 6. Systane 0.3 and 0.4 eyedrops one drop to both eyes b.i.d. p.r.n. 7. Lasix 20 mg p.o. b.i.d. 8. Spiriva 1 capsule inhalation daily. 9. Lantus 30 units subcu daily. 10. Symbicort 160/4.5, 2 puffs b.i.d. 11. Hydralazine 10 mg p.o. t.i.d. 12. Mucinex 600 mg p.o. b.i.d. 13. Trilafon 8 mg p.o. daily and 4 mg at 5:00 p.m. 14. Imdur 20 mg b.i.d. 15. Senokot-S 1 tablet p.o. daily. 16. Meloxicam 50 mg p.o. daily. 17. Claritin 10 mg p.o. daily. 18. Zestril 40 mg p.o. daily. 19. Vitamin D3 1000 units p.o. daily. 20. Tenormin 50 mg p.o. daily. 21. Metformin 1500 mg p.o. daily. 22. Prilosec 20 mg p.o. daily. 23. Zetia 10 mg p.o. daily. 24. Prozac 40 mg p.o. daily. ALLERGIES: KEFLEX AND PENICILLIN. On examination, temperature 97.8, pulse 77, respiration 22, blood pressure 167/107, pulse ox 94% on 2-L. GENERAL APPEARANCE: Well built, BMI of 34.2, lying in bed, tired appearing. EYES: Pupils equal. Conjunctivae normal. HEENT: External appearance of nose and ears normal. Oral cavity missing dentition. NECK: JVD not raised. Mass not palpable. RESPIRATORY: Effort increased. LUNGS: Diminished breath sounds, prolonged expiration and wheezing. Some scattered crackles. CARDIOVASCULAR: First and second sounds normal. No edema. ABDOMEN: Distended, soft. Liver and spleen not palpable. LYMPHATIC: No lymph nodes palpable in neck or axilla. PSYCHIATRY: Patient is able to answer questions though rather slowly. NEUROLOGICAL: Pupils equal. Cranial nerves grossly intact. Moving all 4 limbs. EXTREMITIES: Left arm is in a sling. INVESTIGATIONS: White count 7.1, hemoglobin 13, potassium 4.9, BUN ( ), creatinine 1.09, troponin less than 0.012. Chest x-ray shows possible right-sided infiltrate in the middle lobe. ASSESSMENT: 1. Acute right middle lobe pneumonia, suspect gram-negative organism, present on admission. 2. Acute severe chronic obstructive pulmonary disease exacerbation the patient who is current smoker. 3. Chronic nicotine dependence. Patient is an active cigarette smoker. 4. Chronic congestive heart failure from diastolic dysfunction. 5. Diabetes mellitus type 2, chronically on insulin. 6. Gastroesophageal reflux disease. 7. Hyperlipidemia. 8. Fibromyalgia. 9. Schizophrenia. PLAN: Patient was started on nebulized bronchodilators, IV steroids, nebulized steroids. Also increase the dose of Mucinex. Patient advised against smoking, given a nicotine patch. Patient's chest pain is somewhat atypical. Will get a Cardiology opinion. Care was discussed with the patient.
[2016-12-06] MEDS: SODIUM CHLORIDE 0.9% 1,000 ML IV SCH (11:52)
[2016-12-06 12:24] LABS: Glucose,Whole Blood 266 mg/dL (75-99)
[2016-12-06] MEDS: TIOTROPIUM 18 MCG/PUFF INHALER INHALATION SCH (12:24)
[2016-12-06] MEDS: INSULIN GLARGINE 100 UNIT/ML 10 ML VIAL SQ SCH (12:43)
[2016-12-06] MEDS ORDERED: PALIPERIDONE IM 234 MG/1.5 ML SYG IM SCH (14:00)
[2016-12-06] MEDS: MORPHINE SULFATE 4 MG/ML SYRINGE IV PRN ×2 (16:06→22:08)
[2016-12-06 17:14] LABS: Glucose,Whole Blood 229 mg/dL (75-99)
--- NOTE | 2016-12-06 19:07 | PN ---
DATE OF SERVICE: 12/06/2016 PRESENTING COMPLAINT: Short of breath, cough. INTERVAL HISTORY: This patient was admitted with pneumonia, severe chronic obstructive pulmonary disease exacerbation and atypical chest pain. [place] to be more musculoskeletal. Patient's breathing only a shade better, did tolerate some diet. Still short of breath, cough, unable to expectorate. Review of systems done for constitutional, cardiovascular, GI, pulmonary; relevant findings as above. Current medications are reviewed that include nebulized bronchodilators every 4 hours, IV Solu-Medrol. On examination, temperature 98.7, pulse 73, respiratory rate 18, blood pressure 127/59, pulse ox 95% on room air. GENERAL APPEARANCE: Sitting up, tired-appearing. EYES: Pupils equal conjunctivae normal. NECK: JVD not raised. Mass not palpable. RESPIRATORY: Effort increased. LUNGS: Decreased breath sounds, prolonged expiration and wheezing. Decreased crackles. CARDIOVASCULAR: First and second sounds normal. No edema. ABDOMEN: Distended, soft. Liver and spleen not palpable. PSYCHIATRY: Answering simple questions. Patient is slow to respond. EXTREMITIES: Left arm in a sling. INVESTIGATIONS: Accu-Cheks are noted. ASSESSMENT: 1. Acute right lobe pneumonia, suspect gram-negative organism, present on admission. 2. Acute severe chronic obstructive pulmonary disease exacerbation in a smoker, slow to respond. 3. Chronic nicotine dependence. Patient is an active cigarette smoker. 4. Chronic congestive heart failure from diastolic dysfunction. 5. Diabetes mellitus type 2, chronically on insulin. 6. Gastroesophageal reflux disease. 7. Hyperlipidemia. 8. Fibromyalgia. 9. Schizophrenia. PLAN: Continue current medication and treatment plan, nebulized bronchodilators and steroids. Patient will need to be in the hospital for another 1 or 2 days. Patient again reminded not to smoke. Per cardiology no further work-up.
--- NOTE | 2016-12-06 20:23 | XR ---
EXAMINATION TYPE: XR chest 2V DATE OF EXAM: 12/06/2016 7:53 PM COMPARISON: 12/05/2016 HISTORY: Cough and congestion TECHNIQUE: Frontal and lateral views of the chest are obtained. FINDINGS: A new right middle lobe opacity obscures the right heart border and is seen within the ret rocardiac airspace on the lateral image. Additionally there is blunting of the left costophrenic angl e likely related to trace left pleural effusion. Pulmonary vasculature is unchanged with no evidence of pulmonary vascular congestion. Mild degenerative changes are seen at the visualized thoracic spine . There is generalized osteopenia. Cardiac size is unchanged and within normal limits. IMPRESSION: 1. New right middle lobe airspace disease, suspicious for pneumonia considering recent development an d clinical history. 2. Trace left pleural effusion.
[2016-12-06 21:02] LABS: Glucose,Whole Blood 246 mg/dL (75-99)
[2016-12-06] MEDS: ATORVASTATIN 10 MG TAB PO SCH (21:57)
--- NOTE | 2016-12-06 22:10 | CONS ---
DATE OF CONSULTATION: 12/06/2016 REASON FOR CONSULT: COPD. HISTORY OF PRESENT ILLNESS: Arturo Pereira is seen, evaluated, examined on the 3rd floor. Patient presented into the emergency department with problems associated with fall, chest pain, also has a bruising on the left arm as well. Patient has developed a per left rib as well as contusion to the left arm along with painful respiration. Patient is overall a poor historian. Most of the data has been on obtained from the chart. Review of the data revealed that patient is a resident of a longterm. He had a fall about 3 days ago, had fracture of greater tuberosity of left humerus, has been in a splint. Patient has been complaining of left-sided chest wall pain thought to be related to rib fracture, though. PAST MEDICAL HISTORY: Significant for congestive heart failure, chronic diastolic heart failure, history of dilated aortic root mood of 3.9 cm, type 2 diabetes mellitus, dyslipidemia, history of schizophrenia. PAST SURGICAL HISTORY: Status post cholecystectomy. ALLERGIES: KEFLEX AND PENICILLIN. Medications at home include: 1. Lasix 20 mg 2 times a day. 2. Tylenol as needed. 3. Spiriva 18 mcg once daily. 4. Zocor 20 mg daily. 5. Also on 5 Perphenazine 8 mg and 4 mg. 6. Zestril 40 mg daily. 7. Imdur 20 mg 2 times a day. 8. Also on DuoNeb unit dose 4 times a day. 9. Symbicort 160/4.5, 2 puffs 2 times a day. 10. Mucinex. 11. Vitamin D. 12. Tenormin 50 mg daily. 13. Metformin 1.5 g daily. 14. Hydralazine 10 mg 3 times a day. 15. Senokot also. REVIEW OF SYSTEMS: Unable to obtain at length. Overall, the patient is a poor historian, has been complaining of pain, though. FAMILY HISTORY AND SOCIAL HISTORY: Otherwise unremarkable and noncontributory. Patient does smoke 1 pack per day for about 35 to 40 years. On examination, her most recent vitals include blood pressure is 127/60, respirations 18, pulse 73, temperature 98, saturation 95% on room air. HEENT: Atraumatic, normocephalic. Pharynx clear. Narrow pharyngeal opening is present. NECK: Supple without lymphadenopathy. No jugular venous distention is present. No bruits present. LUNGS: Bilateral poor entry is present in the bases. Otherwise clear to auscultation. HEART: Regular rate and rhythm. S1 and S2 audible. ABDOMEN: Soft. No rebound or rigidity. EXTREMITIES: +1 peripheral pulses. Left upper extremity in splint. Current medications while in the hospital include: 1. Unit dose albuterol as needed. 2. DuoNeb unit dose 4 times a day. 3. Aspirin 325 mg a day. 4. Atenolol 50 mg daily. 5. Lipitor 10 mg daily. 6. Pulmicort 1 mg 2 times a day. 7. Symbicort 160/4.5, 2 times a day. 8. Zetia 10 mg daily. 9. Prozac 40 mg daily. 10. Lasix 20 mg 2 times a day. 11. Mucinex. 12. Subcu heparin. 13. Heparin drip as per protocol. 14. Hydralazine. 15. Lantus. 16. Also on Imdur. 17. Lisinopril. 18. Solu-Medrol 40 q.8 hourly. 19. Sliding scale insulin. 20. Morphine for pain control. 21. Protonix. 22. Senokot. 23. IV fluid KVO and 24. Spiriva once daily. Laboratory data and radiographic studies include EKG performed at the time of admission revealed normal sinus rhythm, some ST-T wave changes, inferior lateral lead has been noted. The repeat EKG performed in the emergency department, however, revealed normal sinus rhythm with anterior lateral ST segment and T wave nonspecific changes. Chest x-ray 12/05/2016: No acute pulmonary process has been seen. Patient already has been evaluated by Cardiovascular Services. They felt acute exacerbation of CHF, but however feel the chest pain is atypical and noncardiac. Other laboratory data reviewed which include white cell count of 7100, hemoglobin 13, hematocrit 40, platelet count of 225,000. PTT is 43.8. Chemistry otherwise is normal except for sodium 135, BUN is 26, creatinine 1.07. CK-MB is 3.1. Lipase 46. IMPRESSION: 1. Chest wall pain related to fall and bruising of the chest. Maybe occult rib fracture is. Present. Will repeat the chest x-ray and rib x-ray for tomorrow. Continue deep breathing exercises, incentive spirometry. Continue breathing treatments; however, can discontinue the Spiriva and the Symbicort. 2. Acute chronic obstructive pulmonary disease exacerbation. As above, will hold on starting antibiotics, as there is no clear-cut evidence of ongoing infection. Acute chronic obstructive pulmonary disease exacerbation may be an issue. 3. Congestive heart failure, acute dysfunction, maybe acute or diastolic heart failure and early congestive heart failure related to that. Patient has been continued on medical management. Cardiovascular Service is following. 4. History of extensive smoking and nicotine use. 5. Likely obstructive sleep apnea, to be evaluated further in outpatient setting. I agree with discontinuing the heparin drip for now. Will follow clinical course closely. Further recommendations pending. Plan of care as per clinical response of the patient.
[2016-12-07] MEDS: methylPREDNISolone SOD SUCCI 40 MG/ML 1 ML VIAL IV SCH ×3 (00:36→17:11)
--- NOTE | 2016-12-07 07:08 | XR ---
EXAMINATION TYPE: XR chest 2V DATE OF EXAM: 12/07/2016 7:01 AM COMPARISON: Chest x-ray from yesterday. HISTORY: Pneumonia progress study. TECHNIQUE: Frontal and lateral views of the chest are obtained. FINDINGS: There is chronic parenchymal changes seen bilaterally. There is improved aeration right mi ddle lobe. No new focal airspace opacity, pleural effusion, or pneumothorax is seen bilaterally. The cardiac silhouette size is stable and enlarged with atherosclerotic aortic knob. Multilevel spurring and spine is present. Cholecystectomy clips are noted on lateral view. IMPRESSION: Chronic parenchymal change with resolving right middle lobe infiltrate, no new infiltrat e is seen.
[2016-12-07 07:26] LABS: Basophils % (A) 0 %; CH 32.3; CHCM 32.9; Eosinophils % (A) 0 %; HDW 2.29; HGB 14.4 gm/dL (13.0-17.5); Luc # (Auto) 0.08; Luc % (Auto) 1; Lymphocytes # (A) 0.7 k/uL (1.0-4.8); Lymphocytes % (A) 7 %; MCH 32.3 pg (25.0-35.0); MCHC 32.6 g/dL (31.0-37.0); MCV 98.8 fL (80.0-100.0); Mean Platelet Volume 6.4; Monocytes # (A) 0.4 k/uL (0-1.0); Monocytes % (A) 4 %; Neutrophils # (A) 8.1 k/uL (1.3-7.7); Neutrophils % (A) 88 %; RBC 4.45 m/uL (4.30-5.90); RDW 14.2 % (11.5-15.5); WBC 9.2 k/uL (3.8-10.6); WBC (Perox) 9.14
[2016-12-07 07:38] LABS: Anion Gap 9 mmol/L; Blood Urea Nitrogen 34 mg/dL (9-20); Calcium 9.9 mg/dL (8.4-10.2); Carbon Dioxide 27 mmol/L (22-30); Chloride 99 mmol/L (98-107); Glucose 206 mg/dL (74-99); Non-African American GFR(MDRD) >60 (>60 ml/min/1.73 sqM); Potassium 4.6 mmol/L (3.5-5.1); Sodium 135 mmol/L (137-145)
[2016-12-07] MEDS: MORPHINE SULFATE 4 MG/ML SYRINGE IV PRN (07:52)
[2016-12-07 07:53] LABS: Glucose,Whole Blood 207 mg/dL (75-99)
[2016-12-07] MEDS: guaiFENesin 600 MG TABLET.ER PO SCH ×2 (07:54→20:22)
[2016-12-07] MEDS: PERPHENAZINE 4 MG TAB PO SCH ×2 (07:55→17:12)
[2016-12-07] MEDS: ISOSORBIDE MONONITRATE 20 MG TAB PO SCH ×2 (07:55→17:11)
[2016-12-07] MEDS: ATENOLOL 50 MG TAB PO SCH (07:55)
[2016-12-07] MEDS: FUROSEMIDE 20 MG TAB PO SCH ×2 (07:55→17:11)
[2016-12-07] MEDS: ASPIRIN 325 MG TAB PO SCH (07:55)
[2016-12-07] MEDS: metFORMIN 500 MG TAB PO SCH ×3 (07:56→20:22)
[2016-12-07] MEDS: FLUoxetine HCL 20 MG CAP PO SCH (07:56)
[2016-12-07] MEDS: hydrALAZINE HCL 10 MG TAB PO SCH (07:56)
[2016-12-07] MEDS: PANTOPRAZOLE 40 MG TABLET PO SCH (07:57)
[2016-12-07] MEDS: NICOTINE 21MG/24HR PATCH TRANSDERM SCH (07:57)
[2016-12-07] MEDS: LISINOPRIL 20 MG TAB PO SCH (07:57)
[2016-12-07] MEDS: INSULIN GLARGINE 100 UNIT/ML 10 ML VIAL SQ SCH (08:02)
[2016-12-07] MEDS: EZETIMIBE 10 MG TAB PO SCH (08:04)
[2016-12-07] MEDS: SODIUM CHLORIDE 0.9% 1,000 ML IV SCH (08:06)
[2016-12-07] MEDS: SENNOSIDES-DOCUSATE SODIUM 1 EACH TAB PO SCH (08:06)
[2016-12-07] MEDS: IPRATROPIUM-ALBUTEROL 3 ML NEB INHALATION SCH ×4 (08:17→20:12)
[2016-12-07] MEDS: BUDESONIDE 1 MG/2 ML NEBU INHALATION SCH ×2 (08:17→20:11)
[2016-12-07] MEDS: SYMBICORT 160-4.5 MCG INHALER INHALATION SCH (08:20)
[2016-12-07] MEDS: TIOTROPIUM 18 MCG/PUFF INHALER INHALATION SCH (08:21)
[2016-12-07 12:10] LABS: Glucose,Whole Blood 298 mg/dL (75-99)
--- NOTE | 2016-12-07 13:56 | PN ---
Patient is admitted for acute hypoxic respiratory failure which is believed to be secondary to congestive heart failure, chronic diastolic dysfunction with acute exacerbation, although patient was switched to oral Lasix at this point of time. Patient appears to have COPD exacerbation as well. As per Pulmonology, patient does not appear to have pneumonia, although I will start him on doxycycline for bronchitis. Patient had chest pain which was diagnosed as musculoskeletal by Cardiology. Patient has rhonchorous breath sounds and respiratory status does not appear significantly improved, although his oxygen saturations are better than yesterday. REVIEW OF SYSTEMS: CARDIOVASCULAR: No chest pain, no orthopnea, no PND, no palpitations. PULMONARY: No significant improvement in his respiratory status. GASTROINTESTINAL: No diarrhea, nausea or vomiting. No abdominal pain. Normoactive bowel sounds. NEUROLOGIC: No headaches, no weakness, no numbness. Medications were reviewed. PHYSICAL EXAMINATION: VITAL SIGNS: Temperature 97.5, pulse of 74, respiratory rate of 20, blood pressure 142/98. Saturating at 95% on room air. GENERAL: Morbidly obese. Excessively sleepy but oriented x3. HEENT: Pupils are round and equally reacting to light. EOMI. No scleral icterus. No conjunctival pallor. Normocephalic, atraumatic. No pharyngeal erythema. No thyromegaly. CARDIOVASCULAR: S1 and S2 present. No murmurs, rubs, or gallops. PULMONARY: Rhonchorous breath sounds. Minimal expiratory wheezing was appreciated. ABDOMEN: Soft, nontender, nondistended, normoactive bowel sounds. No palpable organomegaly. MUSCULOSKELETAL: No joint swelling or deformity. EXTREMITIES: No cyanosis, clubbing, or pedal edema. NEUROLOGICAL: Gross neurological examination did not reveal any focal deficits. SKIN: No rashes. LABORATORY DATA: CBC, CMP are abnormal for mildly elevated creatinine of 1.1, mildly elevated BUN from 26 to 34, mildly elevated glucose. ASSESSMENT AND PLAN: 1. Acute hypoxic respiratory failure believed to be secondary to chronic obstructive pulmonary disease exacerbation as well as chronic diastolic dysfunction with acute exacerbation. Continue with systemic steroids, inhalational treatments. Patient is on the euvolemic side, because of which I will continue with oral Lasix at this point of time. 2. Type 2 diabetes mellitus. Continue with present regimen. Blood sugars are a bit elevated because of systemic steroids. 3. Gastroesophageal reflux disease. 4. Hyperlipidemia. 5. Schizophrenia. 6. Fibromyalgia. For above-mentioned chronic medical problems, I will go ahead and continue his home medications.
--- NOTE | 2016-12-07 14:05 | P.PN ---
Subjective Principal diagnosis: Fall, chest pain Patient seen and examined covering for Dr. Mata. The patient is a poor historian and is from a senior living. According to the medical record the patient had a fall and is complaining of chest pain. The patient states that he is having pain today on his left arm and left chest. He says he occasionally coughs. Other history is difficult to obtain. Objective - Vital Signs Vital signs: Vital Signs Temp 97.5 F L 12/07/16 07:00 Pulse 80 12/07/16 08:27 Resp 20 12/07/16 07:00 BP 142/98 12/07/16 07:00 Pulse Ox 95 12/07/16 07:00 Intake & Output 12/06/16 12/07/16 12/07/16 18:59 06:59 18:59 Intake Total 600 Output Total 1100 900 Balance -500 -900 Weight 109.8 kg 112.5 kg Intake: Oral 600 Output: Urine 1100 900 Other: Voiding Method Toilet Urinal Urinal # Voids 1 - Exam Gen.: Patient is alert, no acute distress Cardiovascular: Regular rate and rhythm, S1/S2 Lungs: Coarse breath sounds bilaterally Abdomen: Soft nontender nondistended positive bowel sounds Extremities: + edema - Labs CBC & Chem 7: 12/07/16 07:10 12/07/16 07:10 Labs: Abnormal Lab Results - Last 24 Hours (Table) 12/06/16 12/06/16 12/07/16 Range/Units 17:10 20:59 07:10 Neutrophils # 8.1 H (1.3-7.7) k/uL Lymphocytes # 0.7 L (1.0-4.8) k/uL Sodium (137-145) mmol/L BUN (9-20) mg/dL Glucose (74-99) mg/dL POC Glucose (mg/dL) 229 H 246 H (75-99) mg/dL 12/07/16 12/07/16 12/07/16 Range/Units 07:10 07:48 12:03 Neutrophils # (1.3-7.7) k/uL Lymphocytes # (1.0-4.8) k/uL Sodium 135 L (137-145) mmol/L BUN 34 H (9-20) mg/dL Glucose 206 H (74-99) mg/dL POC Glucose (mg/dL) 207 H 298 H (75-99) mg/dL Assessment and Plan Plan: Chest wall pain secondary to fall and bruising New right middle lobe infiltrate Acute exacerbation of COPD Diastolic congestive heart failure, not acutely exacerbated Left humerus fracture Diabetes mellitus type 2 Possible underlying obstructive sleep apnea Active tobacco abuse GERD Dyslipidemia Schizophrenia Mild hyponatremia O2 to maintain saturation greater than or equal to 88% Duonebs and Pulmicort Discontinue Symbicort and Spiriva for now, ok to restart once patient is discharged Initiate nebulized Perforomist Steroid taper Mucinex Smoking cessation is highly recommended, Nicotine TD Incentive spirometry and pulmonary hygiene Continue ABX given new infiltrate on CXR Consult speech therapy for swallow evaluation Blood sugar control per primary team Pain control Outpatient pulmonary follow-up for PFT and PSG
[2016-12-07 17:25] LABS: Glucose,Whole Blood 200 mg/dL (75-99)
[2016-12-07] MEDS: FORMOTEROL FUMARATE 20 MCG/2 ML NEBU INHALATION SCH (20:11)
[2016-12-07] MEDS: ATORVASTATIN 10 MG TAB PO SCH (20:22)
[2016-12-07] MEDS: DOXYCYCLINE 50 MG CAP PO SCH (20:22)
[2016-12-07 20:56] LABS: Glucose,Whole Blood 222 mg/dL (75-99)
[2016-12-08] MEDS: methylPREDNISolone SOD SUCCI 40 MG/ML 1 ML VIAL IV SCH ×3 (00:26→21:16)
[2016-12-08 07:46] LABS: Glucose,Whole Blood 199 mg/dL (75-99)
[2016-12-08 07:52] LABS: Mean Platelet Volume 6.3
[2016-12-08 08:19] LABS: Anion Gap 14 mmol/L; Blood Urea Nitrogen 42 mg/dL (9-20); Carbon Dioxide 26 mmol/L (22-30); Chloride 97 mmol/L (98-107); Glucose 215 mg/dL (74-99); Non-African American GFR(MDRD) >60 (>60 ml/min/1.73 sqM); Sodium 137 mmol/L (137-145)
[2016-12-08] MEDS: BUDESONIDE 1 MG/2 ML NEBU INHALATION SCH ×2 (08:30→19:53)
[2016-12-08] MEDS: IPRATROPIUM-ALBUTEROL 3 ML NEB INHALATION SCH ×4 (08:30→19:53)
[2016-12-08] MEDS: FORMOTEROL FUMARATE 20 MCG/2 ML NEBU INHALATION SCH ×2 (08:30→19:53)
[2016-12-08] MEDS: NICOTINE 21MG/24HR PATCH TRANSDERM SCH (10:01)
[2016-12-08] MEDS: PANTOPRAZOLE 40 MG TABLET PO SCH (10:01)
[2016-12-08] MEDS: FUROSEMIDE 20 MG TAB PO SCH ×2 (10:02→15:16)
[2016-12-08] MEDS: ISOSORBIDE MONONITRATE 20 MG TAB PO SCH ×2 (10:02→15:16)
[2016-12-08] MEDS: ATENOLOL 50 MG TAB PO SCH (10:03)
[2016-12-08] MEDS: ASPIRIN 325 MG TAB PO SCH (10:03)
[2016-12-08] MEDS: DOXYCYCLINE 50 MG CAP PO SCH ×2 (10:03→21:16)
[2016-12-08] MEDS: FLUoxetine HCL 20 MG CAP PO SCH (10:04)
[2016-12-08] MEDS: guaiFENesin 600 MG TABLET.ER PO SCH ×2 (10:04→21:16)
[2016-12-08] MEDS: EZETIMIBE 10 MG TAB PO SCH (10:04)
[2016-12-08] MEDS: PERPHENAZINE 4 MG TAB PO SCH ×2 (10:05→17:37)
[2016-12-08] MEDS: LISINOPRIL 20 MG TAB PO SCH (10:05)
[2016-12-08] MEDS: INSULIN GLARGINE 100 UNIT/ML 10 ML VIAL SQ SCH (10:05)
[2016-12-08] MEDS: metFORMIN 500 MG TAB PO SCH ×3 (10:05→21:16)
[2016-12-08] MEDS: SENNOSIDES-DOCUSATE SODIUM 1 EACH TAB PO SCH (10:06)
[2016-12-08] MEDS: SODIUM CHLORIDE 0.9% 1,000 ML IV SCH (10:06)
--- NOTE | 2016-12-08 10:17 | PN ---
Patient is admitted with acute hypoxic respiratory failure, multifactorial secondary to congestive heart failure chronic diastolic dysfunction with acute exacerbation as well as super exacerbation. Patient's rhonchus breath sounds did improve. Patient appears to have overall improvement but although patient denies any clinically symptoms, he denies any such improvement. REVIEW OF SYSTEMS: CARDIOVASCULAR: No chest pain, no orthopnea, no PND, no palpitations. PULMONARY: Denied any shortness of breath. No cough or hemoptysis. GASTROINTESTINAL: No diarrhea, nausea or vomiting. No abdominal pain. Normoactive bowel sounds. NEUROLOGIC: No headaches, no weakness, no numbness. Medications were reviewed. PHYSICAL EXAMINATION: VITAL SIGNS: Temperature 97.1, pulse of 73, respiratory rate of 20, blood pressure is 157/96, saturating at 98% on room air. GENERAL: The patient is alert and oriented x3, not in any acute distress. Well developed, well nourished. HEENT: Pupils are round and equally reacting to light. EOMI. No scleral icterus. No conjunctival pallor. Normocephalic, atraumatic. No pharyngeal erythema. No thyromegaly. CARDIOVASCULAR: S1 and S2 present. No murmurs, rubs, or gallops. PULMONARY: Rhonchus breath sounds are still present, but significant improvement in air entry and wheezing. ABDOMEN: Soft, nontender, nondistended, normoactive bowel sounds. No palpable organomegaly. MUSCULOSKELETAL: No joint swelling or deformity. EXTREMITIES: No cyanosis, clubbing, or pedal edema. NEUROLOGICAL: Gross neurological examination did not reveal any focal deficits. SKIN: No rashes. LABORATORY DATA: BUN has gone up a little bit and creatinine improved. ASSESSMENT AND PLAN: 1. Acute hypoxic respiratory failure secondary to congestive heart failure, mostly chronic obstructive pulmonary disease acute exacerbation. Patient also has chronic diastolic dysfunction with acute exacerbation. 2. Type 2 diabetes mellitus. 3. Gastroesophageal reflux disease. 4. Hyperlipidemia. 5. Schizophrenia. 6. Fibromyalgia. PLAN: Continue with present medications. Will get PT and OT evaluation. Possibility of discharge tomorrow. Continue systemic steroids, inhalational treatments.
[2016-12-08 11:48] LABS: Glucose,Whole Blood 282 mg/dL (75-99)
--- NOTE | 2016-12-08 14:27 | P.PN ---
Subjective Principal diagnosis: Status post fall Patient seen and examined. Patient is apparently refusing his breathing treatments. He still has coarse breath sounds. It is 6. patient that he should do these breathing treatments to help his shortness of breath. He is agreeable. Objective - Vital Signs Vital signs: Vital Signs Temp 97.7 F 12/08/16 07:00 Pulse 73 12/08/16 08:00 Resp 20 12/08/16 08:00 BP 157/96 12/08/16 07:00 Pulse Ox 98 12/08/16 07:00 Intake & Output 12/07/16 12/08/16 12/08/16 18:59 06:59 18:59 Intake Total 240 Balance 240 Weight 108.5 kg Intake: Oral 240 Other: Voiding Method Urinal Urinal Urinal # Voids 3 1 - Exam Gen.: Patient is alert, no acute distress Cardiovascular: Regular rate and rhythm, S1/S2 Lungs: Coarse breath sounds bilaterally Abdomen: Soft nontender nondistended positive bowel sounds Extremities: + edema - Labs CBC & Chem 7: 12/08/16 07:29 12/08/16 07:29 Labs: Abnormal Lab Results - Last 24 Hours (Table) 12/07/16 12/07/16 12/08/16 Range/Units 17:23 20:36 07:29 Chloride 97 L (98-107) mmol/L BUN 42 H (9-20) mg/dL Glucose 215 H (74-99) mg/dL POC Glucose (mg/dL) 200 H 222 H (75-99) mg/dL 12/08/16 12/08/16 Range/Units 07:41 11:46 Chloride (98-107) mmol/L BUN (9-20) mg/dL Glucose (74-99) mg/dL POC Glucose (mg/dL) 199 H 282 H (75-99) mg/dL Assessment and Plan Plan: Chest wall pain secondary to fall and bruising Right middle lobe infiltrate Acute exacerbation of COPD Diastolic congestive heart failure, not acutely exacerbated Left humerus fracture Diabetes mellitus type 2 Possible underlying obstructive sleep apnea Active tobacco abuse GERD Dyslipidemia Schizophrenia Mild hyponatremia O2 to maintain saturation greater than or equal to 88% Duonebs and Pulmicort Discontinue Symbicort and Spiriva for now, ok to restart once patient is discharged Initiate nebulized Perforomist Steroid taper Mucinex Smoking cessation is highly recommended, Nicotine TD Incentive spirometry and pulmonary hygiene Continue ABX Consult speech therapy for swallow evaluation Blood sugar control per primary team Pain control Repeat CXR in AM Patient encouraged to use breathing treatments as ordered Outpatient pulmonary follow-up for PFT and PSG
[2016-12-08 17:06] LABS: Glucose,Whole Blood 233 mg/dL (75-99)
[2016-12-08] MEDS: MORPHINE SULFATE 4 MG/ML SYRINGE IV PRN (17:38)
[2016-12-08] MEDS: ATORVASTATIN 10 MG TAB PO SCH (21:16)
[2016-12-08 22:00] LABS: Glucose,Whole Blood 268 mg/dL (75-99)
[2016-12-09 07:32] LABS: Glucose,Whole Blood 224 mg/dL (75-99)
[2016-12-09 07:48] VITALS: BP 166/96; RESP 16; TEMP 97.2
[2016-12-09] MEDS: INSULIN GLARGINE 100 UNIT/ML 10 ML VIAL SQ SCH (08:15)
[2016-12-09] MEDS: NICOTINE 21MG/24HR PATCH TRANSDERM SCH (08:16)
[2016-12-09] MEDS: methylPREDNISolone SOD SUCCI 40 MG/ML 1 ML VIAL IV SCH (08:17)
[2016-12-09] MEDS: guaiFENesin 600 MG TABLET.ER PO SCH (08:18)
[2016-12-09] MEDS: LISINOPRIL 20 MG TAB PO SCH (08:18)
[2016-12-09] MEDS: FLUoxetine HCL 20 MG CAP PO SCH (08:18)
[2016-12-09] MEDS: metFORMIN 500 MG TAB PO SCH (08:18)
[2016-12-09] MEDS: PERPHENAZINE 4 MG TAB PO SCH (08:19)
[2016-12-09] MEDS: SENNOSIDES-DOCUSATE SODIUM 1 EACH TAB PO SCH (08:21)
[2016-12-09] MEDS: IPRATROPIUM-ALBUTEROL 3 ML NEB INHALATION SCH ×2 (08:29→12:01)
[2016-12-09] MEDS: BUDESONIDE 1 MG/2 ML NEBU INHALATION SCH (08:29)
[2016-12-09] MEDS: FORMOTEROL FUMARATE 20 MCG/2 ML NEBU INHALATION SCH (08:29)
--- NOTE | 2016-12-09 10:35 | XR ---
EXAMINATION TYPE: XR chest 1V portable DATE OF EXAM: 12/09/2016 10:28 AM CLINICAL HISTORY: Difficulty breathing and pneumonia progress study. TECHNIQUE: Single AP portable upright view of the chest is obtained. COMPARISON: Chest x-ray from December 07 2016 FINDINGS: There is chronic parenchymal changes seen bilaterally. There is developing bilateral hilar opacities. No large pleural effusion or pneumothorax is seen bilaterally. Some new right-sided volum e loss is suspected with mediastinal shift. The cardiac silhouette size is stable and enlarged with a therosclerotic aortic knob. Multilevel spurring in the spine is present. IMPRESSION: New central perihilar edema and/or infiltrates, consider CHF exacerbation as there is fara kground cardiomegaly. A component of right-sided volume loss or atelectasis is suspected with new med iastinal shift noted.
[2016-12-09 10:36] LABS: Anion Gap 12 mmol/L; Blood Urea Nitrogen 45 mg/dL (9-20); Carbon Dioxide 27 mmol/L (22-30); Chloride 96 mmol/L (98-107); Glucose 272 mg/dL (74-99); Non-African American GFR(MDRD) >60 (>60 ml/min/1.73 sqM); Potassium 4.8 mmol/L (3.5-5.1); Sodium 135 mmol/L (137-145)
[2016-12-09] MEDS: MORPHINE SULFATE 4 MG/ML SYRINGE IV PRN (10:40)
[2016-12-09] MEDS ORDERED: LEVOFLOXACIN 500MG-D5W PMX 500 MG in DEXTROSE/WATER 1 100ML.BAG IVPB STA (10:43)
--- NOTE | 2016-12-09 11:11 | P.PN ---
Subjective Principal diagnosis: Pneumonia Patient seen and examined. Patient states he is "under a lot of pressure." He states he is still a little bit short of breath. Case is discussed with Dr. Mcfarlane. Patient will be discharged back to halfway with antibiotics for pneumonia. Objective - Vital Signs Vital signs: Vital Signs Temp 97.2 F L 12/09/16 07:00 Pulse 88 12/09/16 09:03 Resp 16 12/09/16 07:00 BP 166/96 12/09/16 07:00 Pulse Ox 90 L 12/09/16 07:00 Intake & Output 12/08/16 12/09/16 12/09/16 18:59 06:59 18:59 Intake Total 400 720 Balance 400 720 Weight 110 kg Intake: Oral 400 720 Other: Voiding Method Urinal Toilet # Voids 1 - Exam Gen.: Patient is alert, no acute distress Cardiovascular: Regular rate and rhythm, S1/S2 Lungs: Coarse breath sounds bilaterally Abdomen: Soft nontender nondistended positive bowel sounds Extremities: + edema - Labs CBC & Chem 7: 12/08/16 07:29 12/09/16 09:42 Labs: Abnormal Lab Results - Last 24 Hours (Table) 12/08/16 12/08/16 12/08/16 Range/Units 11:46 17:02 21:48 Sodium (137-145) mmol/L Chloride (98-107) mmol/L BUN (9-20) mg/dL Glucose (74-99) mg/dL POC Glucose (mg/dL) 282 H 233 H 268 H (75-99) mg/dL 12/09/16 12/09/16 Range/Units 07:11 09:42 Sodium 135 L (137-145) mmol/L Chloride 96 L (98-107) mmol/L BUN 45 H (9-20) mg/dL Glucose 272 H (74-99) mg/dL POC Glucose (mg/dL) 224 H (75-99) mg/dL Assessment and Plan Plan: Chest wall pain secondary to fall and bruising Right middle lobe infiltrate Acute exacerbation of COPD Diastolic congestive heart failure, not acutely exacerbated Left humerus fracture Diabetes mellitus type 2 Possible underlying obstructive sleep apnea Active tobacco abuse GERD Dyslipidemia Schizophrenia Mild hyponatremia O2 to maintain saturation greater than or equal to 88% Duonebs and Pulmicort Discontinue Symbicort and Spiriva for now, ok to restart once patient is discharged Initiate nebulized Perforomist Steroid taper Mucinex Smoking cessation is highly recommended, Nicotine TD Incentive spirometry and pulmonary hygiene Continue ABX: Change to Levaquin Consult speech therapy for swallow evaluation Blood sugar control per primary team Pain control Patient encouraged to use breathing treatments as ordered Outpatient pulmonary follow-up for PFT and PSG Okay to discharge from pulmonary standpoint with antibiotics for pneumonia. Restart patient's home Symbicort and Spiriva. Steroid taper.
[2016-12-09] MEDS: DOXYCYCLINE 50 MG CAP PO SCH (11:17)
[2016-12-09] MEDS: FUROSEMIDE 20 MG TAB PO SCH (11:17)
[2016-12-09] MEDS: PANTOPRAZOLE 40 MG TABLET PO SCH (11:17)
[2016-12-09] MEDS: ATENOLOL 50 MG TAB PO SCH (11:18)
[2016-12-09] MEDS: ASPIRIN 325 MG TAB PO SCH (11:18)
[2016-12-09] MEDS: ISOSORBIDE MONONITRATE 20 MG TAB PO SCH (11:18)
[2016-12-09] MEDS: EZETIMIBE 10 MG TAB PO SCH (11:19)
[2016-12-09 11:43] LABS: Glucose,Whole Blood 264 mg/dL (75-99)
--- NOTE | 2016-12-09 12:04 | DS ---
DATE OF ADMISSION: 12/05/2016 DATE OF DISCHARGE: Patient is admitted with hypoxic respiratory failure secondary to possibly right middle lobe pneumonia, mostly community-acquired and pneumococcal in nature, although it is not clearly evident on initial x-rays, now much more prominent now. Patient has significant improvement just with doxycycline. Patient will be switched to levofloxacin and will be discharged today. Will ambulate the patient, make sure patient is saturating before we do that. Patient was also rated for COPD exacerbation, nicotine cessation counseling was provided. Patient still has rhonchus breath sounds, although significant improvement compared to admission. Patient also has congestive heart failure with chronic diastolic dysfunction. Patient is presently euvolemic and patient was seen and examined on the day of discharge. REVIEW OF SYSTEMS: CARDIOVASCULAR: No chest pain, no orthopnea, no PND, no palpitations. PULMONARY: Denied any shortness of breath. No cough or hemoptysis. GASTROINTESTINAL: No diarrhea, nausea or vomiting. No abdominal pain. Normoactive bowel sounds. NEUROLOGIC: No headaches, no weakness, no numbness. Medications were reviewed. PHYSICAL EXAMINATION: Temperature 97.2, pulse of 86, respiratory rate of 16, blood pressure is 166/96, saturating at 98% on room air. GENERAL: The patient is alert and oriented x3, not in any acute distress. Well developed, well nourished. HEENT: Pupils are round and equally reacting to light. EOMI. No scleral icterus. No conjunctival pallor. Normocephalic, atraumatic. No pharyngeal erythema. No thyromegaly. CARDIOVASCULAR: S1 and S2 present. No murmurs, rubs, or gallops. PULMONARY: Continued rhonchus breath sounds with significant improvement compared to yesterday. Fairly good air entry into bilateral lung walker. ABDOMEN: Soft, nontender, nondistended, normoactive bowel sounds. No palpable organomegaly. MUSCULOSKELETAL: No joint swelling or deformity. EXTREMITIES: No cyanosis, clubbing, or pedal edema. NEUROLOGICAL: Gross neurological examination did not reveal any focal deficits. SKIN: No rashes. ASSESSMENT AND PLAN: 1. Acute hypercapnic respiratory failure secondary to chronic obstructive pulmonary disease exacerbation along with right middle lobe pneumonia, community-acquired as mentioned above probably pneumococcal. 2. Type 2 diabetes mellitus. 3. Gastroesophageal reflux disease. 4. Hyperlipidemia. 5. Schizophrenia. 6. Fibromyalgia. 7. Chronic diastolic dysfunction. Patient appears to have had exacerbation on admission, although he is fairly euvolemic at this point of time. Patient will be discharged today. Please refer to my depart summary for this list of discharge medications. CHF instructions will be provide. Discharge on cardiac and 1800 calorie diet. Follow up with the primary care physician, Gertrude El DO in about 3 to 7 days; Dr. Christiano Mata in about a week. Patient is noncompliant with his breathing treatments. Counseling was provided regarding that. Nicotine cessation counseling was provided as well and patient will be discharged most probably with home care. Minimally elevated blood sugars which are expected to improve with tapering down of steroids. No change in diabetes mellitus regimen was made. Spent grater than 35 minutes in total discharge process.
[2016-12-09] MEDS: SODIUM CHLORIDE 0.9% 1,000 ML IV SCH (12:12)
[2016-12-09 14:17] VITALS: PULSE 69
== END 2016-12-09 14:25 | disposition home health service (06) | DRG 190 ==
LOC: EC 08:09 → 3OBS 10:37 → OBSVTOIN 22:29 → 5MS5E 12-06 19:20
PROVIDERS: ADMIT Hospitalist; ATTEND Hospitalist
DX: J44.0 Chronic obstructive pulmonary disease with (acute) lower respiratory infection (principal); J96.01 Acute respiratory failure with hypoxia; J96.02 Acute respiratory failure with hypercapnia; I11.0 Hypertensive heart disease with heart failure; J18.9 Pneumonia, unspecified organism; E11.65 Type 2 diabetes mellitus with hyperglycemia; I50.32 Chronic diastolic (congestive) heart failure; E87.1 Hypo-osmolality and hyponatremia; S42.302A Unspecified fracture of shaft of humerus, left arm, initial encounter for closed fracture; J44.1 Chronic obstructive pulmonary disease with (acute) exacerbation; E78.00 Pure hypercholesterolemia, unspecified; E78.5 Hyperlipidemia, unspecified; F20.9 Schizophrenia, unspecified; G47.33 Obstructive sleep apnea (adult) (pediatric); I77.810 Thoracic aortic ectasia; K21.9 Gastro-esophageal reflux disease without esophagitis; M79.7 Fibromyalgia; S20.212A Contusion of left front wall of thorax, initial encounter; S40.022A Contusion of left upper arm, initial encounter; W19.XXXA Unspecified fall, initial encounter; Z79.4 Long term (current) use of insulin; Z79.51 Long term (current) use of inhaled steroids; Z79.84 Long term (current) use of oral hypoglycemic drugs; Z79.899 Other long term (current) drug therapy; Z91.19 Patient's noncompliance with other medical treatment and regimen; Z72.0 Tobacco use
CPT/HCPCS: 36415; 71010; 71020; 80048; 80053; 80061; 82550; 82553; 83690; 83735; 83880; 84484; 85025; 85049; 85610; 85730; 93005; 94640; 96365; 96366; 96375; 96376; 99291

== ENCOUNTER 2016-12-14 19:05 | Inpatient (IN) | payer MEDICARE, OTHER ==
[2016-12-14] MEDS ORDERED: SODIUM CHLORIDE 0.9% 1,000 ML IV STA (19:58)
[2016-12-14 20:29] LABS: Basophils % (A) 0 %; CH 32.4; CHCM 33.8; Eosinophils # (A) 0.1 k/uL (0-0.7); Eosinophils % (A) 1 %; HCT 42.4 % (39.0-53.0); HGB 14.3 gm/dL (13.0-17.5); Luc # (Auto) 0.15; Luc % (Auto) 2; Lymphocytes # (A) 1.1 k/uL (1.0-4.8); Lymphocytes % (A) 11 %; MCH 32.5 pg (25.0-35.0); MCHC 33.7 g/dL (31.0-37.0); MCV 96.3 fL (80.0-100.0); Mean Platelet Volume 6.7; Monocytes # (A) 0.8 k/uL (0-1.0); Monocytes % (A) 8 %; Neutrophils # (A) 7.6 k/uL (1.3-7.7); Neutrophils % (A) 78 %; RDW 13.9 % (11.5-15.5); WBC 9.7 k/uL (3.8-10.6); WBC (Perox) 9.51
--- NOTE | 2016-12-14 20:44 | XR ---
EXAMINATION TYPE: XR chest 2V DATE OF EXAM: 12/14/2016 8:26 PM COMPARISON: NONE INDICATION: Dizzy elevated blood sugar TECHNIQUE: 2 view chest FINDINGS: The heart size is normal. The pulmonary vasculature is slightly prominent. There may be some subtle increased lung markings diffusely. Mild pulmonary edema should be considered IMPRESSION: 1. Consider early mild pulmonary edema.
[2016-12-14 20:46] LABS: Calcium 9.6 mg/dL (8.4-10.2); INR 1.1 (<1.1); Prothrombin Time 11.3 sec (9.0-12.0); Total Bilirubin 0.5 mg/dL (0.2-1.3); Total Protein 6.2 g/dL (6.3-8.2)
[2016-12-14] MEDS ORDERED: IPRATROPIUM-ALBUTEROL 3 ML NEB INHALATION STA (21:16)
--- NOTE | 2016-12-14 21:28 | ED ---
Dizziness HPI - General Chief Complaint: Dizziness Stated Complaint: blood sugar high Time Seen by Provider: 12/14/16 19:58 Source: patient, RN/MD, RN notes reviewed, old records reviewed Mode of arrival: ambulatory Limitations: no limitations - History of Present Illness Initial Comments: This is a 71-year-old male brought into the emergency department chief complaint of elevated blood sugars. Patient currently lives at an assisted living facility and they're not able to handle his blood sugar the medications at home. Patient also reports that he feels dizzy at this time. He states that he has chronic wheezing and a cough. He denies any abdominal pain. He reports he has had normal urination. Patient is does appear chronically ill. - Related Data Home Medications Medication Instructions Recorded Confirmed Ezetimibe [Zetia] 10 mg PO DAILY@0800 10/05/15 12/14/16 FLUoxetine HCL [PROzac] 40 mg PO DAILY@0800 10/05/15 12/14/16 Insulin Glargine [Lantus] 30 unit SQ DAILY@0810/05/15 12/14/16 Loratadine [Claritin] 10 mg PO DAILY@0800 10/05/15 12/14/16 Omeprazole [PriLOSEC] 20 mg PO DAILY@0800 10/05/15 12/14/16 Sennosides-Docusate Sodium 1 tab PO DAILY@0800 10/05/15 12/14/16 [Senokot-S] Atenolol [Tenormin] 50 mg PO DAILY@0800 02/05/16 12/14/16 Certa-Chhaya S R 1 tab PO DAILY@0802/05/16 12/14/16 Cholecalciferol [Vitamin D3] 5,000 unit PO DAILY@0800 02/05/16 12/14/16 guaiFENesin [Mucinex] 600 mg PO DAILY@79902/05/16 12/14/16 Budesonide-Formot 160-4.5 Mcg 2 puff INHALATION RT-BID@0800,2100 03/19/16 [Symbicort 160-4.5 Mcg Inhaler] Isosorbide Mononitrate 20 mg PO BID@0800,1500 11/28/16 12/14/16 Lisinopril [Zestril] 40 mg PO DAILY@0800 11/28/16 12/14/16 Perphenazine [Trilafon] 4 mg PO DAILY@1200 11/28/16 12/14/16 Perphenazine [Trilafon] 8 mg PO DAILY@0800 11/28/16 12/14/16 Simvastatin [Zocor] 20 mg PO DAILY@1500 11/28/16 12/14/16 Tiotropium 18 Mcg/Puff [Spiriva] 1 cap INHALATION RT-DAILY@0800 11/28/16 Furosemide [Lasix] 20 mg PO BID@0800,1600 12/05/16 12/14/16 Levofloxacin [Levaquin] 500 mg PO DAILY@0800 12/14/16 12/14/16 hydrALAZINE HCL [Apresoline] 25 mg PO TID@0800,1200,1700 12/14/16 12/14/16 metFORMIN HCL 1,000 mg PO BID@0800,1700 12/14/16 12/14/16 predniSONE See Taper PO DAILY@0800 12/14/16 12/14/16 Allergies Allergy/AdvReac Type Severity Reaction Status Date / Time cephalexin monohydrate Allergy Unknown Verified 12/14/16 19:37 [From Keflex] Penicillins Allergy Unknown Verified 12/14/16 19:37 Review of Systems ROS Statement: Those systems with pertinent positive or pertinent negative responses have been documented in the HPI. ROS Other: All systems not noted in ROS Statement are negative. Past Medical History Past Medical History: Heart Failure, COPD, Diabetes Mellitus, Fibromyalgia, GERD /Reflux, Hyperlipidemia, Hypertension Additional Past Medical History / Comment(s): IDDM type II, neuropathy bilateral feet with past sores, refuses home oxygen and updraft tx, L eye thick cataract, bilateral dry eyes, fatty tumor posterior neck, recent fall 1 week ago with L humerus fracture-not casted-uses a sling-orhtopedic physician instructed he can use arm minimally-no lifting shoulder up or picking up weight , possible hx of kidney stones per pt. History of Any Multi-Drug Resistant Organisms: None Reported Past Surgical History: Cholecystectomy Additional Past Surgical History / Comment(s): Possible hx of surgery for kidney stones per pt. Past Anesthesia/Blood Transfusion Reactions: No Reported Reaction Past Psychological History: Depression, Schizophrenia Additional Psychological History / Comment(s): Pt resides at [facility]. He ambulates without device. He has visiting physician and visiting nurse. He refuses home O2 and home updraft txs. Pt recently learned his 2 out of state sisters are selling the family home. This has made him sad and when he is sad, he gets more obstenate with meds etc per caretakers. His sisters send him letters and care packages often. He writes letters as well. Smoking Status: Current every day smoker Past Alcohol Use History: None Reported Additional Past Alcohol Use History / Comment(s): Smokes cigarettes : 1.5 ppd, occasional cigar and pipe. Past Drug Use History: None Reported - Past Family History Mother History Unknown: Yes Father History Unknown: Yes General Exam - General Exam Comments Initial Comments: This is a 71-year-old male. He appears to be ill. Patient is audibly wheezing. Limitations: no limitations General appearance: alert, in no apparent distress Head exam: Present: atraumatic, normocephalic, normal inspection Eye exam: Present: normal appearance, PERRL, EOMI. Absent: scleral icterus, conjunctival injection, periorbital swelling ENT exam: Present: normal exam, mucous membranes moist Neck exam: Present: normal inspection. Absent: tenderness, meningismus, lymphadenopathy Respiratory exam: Present: wheezes, rhonchi. Absent: normal lung sounds bilaterally, respiratory distress, rales, stridor Cardiovascular Exam: Present: regular rate, normal rhythm, normal heart sounds. Absent: systolic murmur, diastolic murmur, rubs, gallop, clicks GI/Abdominal exam: Present: soft, normal bowel sounds. Absent: distended, tenderness, guarding, rebound, rigid Extremities exam: Present: normal inspection, full ROM, normal capillary refill. Absent: tenderness, pedal edema, joint swelling, calf tenderness Back exam: Present: normal inspection Neurological exam: Present: alert, oriented X3, CN II-XII intact Psychiatric exam: Present: normal affect, normal mood Skin exam: Present: warm, dry, intact, normal color. Absent: rash Course Vital Signs 12/14/16 12/14/16 12/14/16 19:21 21:21 21:34 Temperature 98.4 F Pulse Rate 87 82 81 Respiratory 20 22 Rate Blood Pressure 116/60 175/85 O2 Sat by Pulse 96 97 Oximetry 12/14/16 12/14/16 12/15/16 21:42 22:51 01:19 Temperature Pulse Rate 78 91 85 Respiratory 20 18 Rate Blood Pressure 188/77 175/78 O2 Sat by Pulse 96 98 Oximetry 12/15/16 02:28 Temperature Pulse Rate 88 Respiratory 20 Rate Blood Pressure 145/88 O2 Sat by Pulse 97 Oximetry Medical Decision Making - Medical Decision Making Is a 71-year-old male chief complaint of high blood sugars. They would not manage with his assisted living facility. Rest emergency department given IV fluids and labs obtained. Patient does have an elevated lactic acid. He does have significant wheezing and rhonchi in his lungs. Patient denies any fever or chills. Discussed his elevated lactic acid and lung sounds wouldn't likely benefit from admission and continued breathing treatments. Patient agrees. Patient will be admitted at this time.Chest x-ray shows consider mild pulmonary edema. Discussed this case with Dr. Renteria. Patient will be started on initial dose of Lasix in the emergency department. Patient will be admitted at this time. Continued breathing treatments. - Lab Data Result diagrams: 12/14/16 20:10 12/14/16 20:10 Lab Results 12/14/16 12/14/16 12/14/16 Range/Units 20:10 20:10 20:10 WBC 9.7 (3.8-10.6) k/uL RBC 4.40 (4.30-5.90) m/uL Hgb 14.3 (13.0-17.5) gm/dL Hct 42.4 (39.0-53.0) % MCV 96.3 (80.0-100.0) fL MCH 32.5 (25.0-35.0) pg MCHC 33.7 (31.0-37.0) g/dL RDW 13.9 (11.5-15.5) % Plt Count 279 (150-450) k/uL Neutrophils % 78 % Lymphocytes % 11 % Monocytes % 8 % Eosinophils % 1 % Basophils % 0 % Neutrophils # 7.6 (1.3-7.7) k/uL Lymphocytes # 1.1 (1.0-4.8) k/uL Monocytes # 0.8 (0-1.0) k/uL Eosinophils # 0.1 (0-0.7) k/uL Basophils # 0.0 (0-0.2) k/uL PT (9.0-12.0) sec INR (<1.1) Sodium 133 L (137-145) mmol/L Potassium 5.0 (3.5-5.1) mmol/L Chloride 99 (98-107) mmol/L Carbon Dioxide 22 (22-30) mmol/L Anion Gap 12 mmol/L BUN 55 H (9-20) mg/dL Creatinine 1.50 H (0.66-1.25) mg/dL Est GFR (MDRD) Af Amer 56 (>60 ml/min/1.73 sqM) Est GFR (MDRD) Non-Af 46 (>60 ml/min/1.73 sqM) Glucose 245 H (74-99) mg/dL POC Glucose (mg/dL) (75-99) mg/dL POC Glu Fruit [employer] Machine Operator ID Plasma Lactic Acid Luis 2.3 H* (0.7-2.0) mmol/L Calcium 9.6 (8.4-10.2) mg/dL Total Bilirubin 0.5 (0.2-1.3) mg/dL AST 35 (17-59) U/L ALT 60 (21-72) U/L Alkaline Phosphatase 165 H (38-126) U/L Troponin I (0.000-0.034) ng/mL NT-Pro-B Natriuret Pep pg/mL Total Protein 6.2 L (6.3-8.2) g/dL Albumin 3.5 (3.5-5.0) g/dL Acetone, Qual (Negative) 12/14/16 12/14/16 12/14/16 Range/Units 20:10 20:10 20:10 WBC (3.8-10.6) k/uL RBC (4.30-5.90) m/uL Hgb (13.0-17.5) gm/dL Hct (39.0-53.0) % MCV (80.0-100.0) fL MCH (25.0-35.0) pg MCHC (31.0-37.0) g/dL RDW (11.5-15.5) % Plt Count (150-450) k/uL Neutrophils % % Lymphocytes % % Monocytes % % Eosinophils % % Basophils % % Neutrophils # (1.3-7.7) k/uL Lymphocytes # (1.0-4.8) k/uL Monocytes # (0-1.0) k/uL Eosinophils # (0-0.7) k/uL Basophils # (0-0.2) k/uL PT 11.3 (9.0-12.0) sec INR 1.1 (<1.1) Sodium (137-145) mmol/L Potassium (3.5-5.1) mmol/L Chloride (98-107) mmol/L Carbon Dioxide (22-30) mmol/L Anion Gap mmol/L BUN (9-20) mg/dL Creatinine (0.66-1.25) mg/dL Est GFR (MDRD) Af Amer (>60 ml/min/1.73 sqM) Est GFR (MDRD) Non-Af (>60 ml/min/1.73 sqM) Glucose (74-99) mg/dL POC Glucose (mg/dL) (75-99) mg/dL POC Glu Fruit [employer] Machine Operator ID Plasma Lactic Acid Luis (0.7-2.0) mmol/L Calcium (8.4-10.2) mg/dL Total Bilirubin (0.2-1.3) mg/dL AST (17-59) U/L ALT (21-72) U/L Alkaline Phosphatase (38-126) U/L Troponin I 0.015 (0.000-0.034) ng/mL NT-Pro-B Natriuret Pep pg/mL Total Protein (6.3-8.2) g/dL Albumin (3.5-5.0) g/dL Acetone, Qual Negative (Negative) 12/14/16 12/14/16 12/15/16 Range/Units 20:10 23:00 00:15 WBC (3.8-10.6) k/uL RBC (4.30-5.90) m/uL Hgb (13.0-17.5) gm/dL Hct (39.0-53.0) % MCV (80.0-100.0) fL MCH (25.0-35.0) pg MCHC (31.0-37.0) g/dL RDW (11.5-15.5) % Plt Count (150-450) k/uL Neutrophils % % Lymphocytes % % Monocytes % % Eosinophils % % Basophils % % Neutrophils # (1.3-7.7) k/uL Lymphocytes # (1.0-4.8) k/uL Monocytes # (0-1.0) k/uL Eosinophils # (0-0.7) k/uL Basophils # (0-0.2) k/uL PT (9.0-12.0) sec INR (<1.1) Sodium (137-145) mmol/L Potassium (3.5-5.1) mmol/L Chloride (98-107) mmol/L Carbon Dioxide (22-30) mmol/L Anion Gap mmol/L BUN (9-20) mg/dL Creatinine (0.66-1.25) mg/dL Est GFR (MDRD) Af Amer (>60 ml/min/1.73 sqM) Est GFR (MDRD) Non-Af (>60 ml/min/1.73 sqM) Glucose (74-99) mg/dL POC Glucose (mg/dL) 194 H (75-99) mg/dL POC Glu Fruit Harvester Machine Operator ID Escobar, Roselia Plasma Lactic Acid Luis 3.2 H* (0.7-2.0) mmol/L Calcium (8.4-10.2) mg/dL Total Bilirubin (0.2-1.3) mg/dL AST (17-59) U/L ALT (21-72) U/L Alkaline Phosphatase (38-126) U/L Troponin I (0.000-0.034) ng/mL NT-Pro-B Natriuret Pep 730 pg/mL Total Protein (6.3-8.2) g/dL Albumin (3.5-5.0) g/dL Acetone, Qual (Negative) - Radiology Data Radiology results: report reviewed Chest x-ray shows mild early pulmonary edema. Disposition Clinical Impression: Wheezing, Dizziness, COPD exacerbation Disposition: ADMITTED IP TO THIS HOSP Condition: Stable Time of Disposition: 01:11
[2016-12-14] MEDS ORDERED: FUROSEMIDE 10 MG/ML 4 ML VIAL IV STA (22:14)
[2016-12-14] MEDS ORDERED: NITROGLYCERIN SL TABS 0.4 MG TAB SUBLINGUAL PRN (22:16)
[2016-12-14] MEDS: INSULIN REGULAR 100 UNIT/ML VIAL IV ONE ×2 (22:57→23:02)
[2016-12-14 23:04] LABS: Glucose,Whole Blood 194 mg/dL (75-99)
[2016-12-15] MEDS ORDERED: NALOXONE 0.4 MG/ML 1 ML VIAL IV PRN (01:07)
[2016-12-15] MEDS ORDERED: IPRATROPIUM-ALBUTEROL 3 ML NEB INHALATION PRN (01:17)
[2016-12-15 03:13] LABS: Glucose,Whole Blood 144 mg/dL (75-99)
[2016-12-15] MEDS: SODIUM CHLORIDE 0.9% 1,000 ML IV SCH ×3 (03:48→20:48)
[2016-12-15 04:17] VITALS: BMI 35.6
[2016-12-15] MEDS: methylPREDNISolone SOD SUCCI 125 MG/2 ML VIAL IV SCH ×2 (05:59→11:35)
[2016-12-15] MEDS: INSULIN LISPRO (humaLOG) 300 UNIT/3 ML VIAL SQ SCH ×4 (06:10→20:24)
[2016-12-15 06:28] LABS: Glucose,Whole Blood 176 mg/dL (75-99)
[2016-12-15] MEDS: hydrALAZINE HCL 25 MG TAB PO SCH ×3 (07:48→16:12)
[2016-12-15] MEDS: CHOLECALCIFEROL 1,000 UNIT TAB PO SCH (07:48)
[2016-12-15] MEDS: ISOSORBIDE MONONITRATE 20 MG TAB PO SCH ×2 (07:48→15:42)
[2016-12-15] MEDS: FLUoxetine HCL 20 MG CAP PO SCH (07:48)
[2016-12-15] MEDS: MULTIVITAMINS, THERA 1 EACH TAB PO SCH (07:49)
[2016-12-15] MEDS: metFORMIN 500 MG TAB PO SCH ×2 (07:49→16:12)
[2016-12-15] MEDS: FUROSEMIDE 20 MG TAB PO SCH ×2 (07:49→15:42)
[2016-12-15] MEDS: EZETIMIBE 10 MG TAB PO SCH (07:49)
[2016-12-15] MEDS: SENNOSIDES-DOCUSATE SODIUM 1 EACH TAB PO SCH (07:50)
[2016-12-15] MEDS: ATENOLOL 50 MG TAB PO SCH (07:50)
[2016-12-15] MEDS: LORATADINE 10 MG TAB PO SCH (07:50)
[2016-12-15] MEDS: PANTOPRAZOLE 40 MG TABLET PO SCH (07:50)
[2016-12-15] MEDS: guaiFENesin 600 MG TABLET.ER PO SCH (07:51)
[2016-12-15] MEDS: INSULIN GLARGINE 100 UNIT/ML 10 ML VIAL SQ SCH (07:54)
[2016-12-15] MEDS ORDERED: TIOTROPIUM 18 MCG/PUFF INHALER INHALATION SCH (08:00)
[2016-12-15] MEDS ORDERED: LISINOPRIL 20 MG TAB PO SCH (08:00)
[2016-12-15] MEDS: SYMBICORT 160-4.5 MCG INHALER INHALATION SCH ×2 (08:01→18:56)
[2016-12-15] MEDS: PERPHENAZINE 4 MG TAB PO SCH (11:36)
[2016-12-15 11:55] LABS: Glucose,Whole Blood 312 mg/dL (75-99)
[2016-12-15] MEDS ORDERED: INSULIN LISPRO (humaLOG) 300 UNIT/3 ML VIAL SQ ONE (12:49)
--- NOTE | 2016-12-15 15:39 | HP ---
DATE OF ADMISSION: 12/15/2016 PRESENTING COMPLAINT: Wheezing. HISTORY OF PRESENTING COMPLAINT: This is a patient who is a smoker whose chronic stable medical conditions include congestive heart failure, diabetes mellitus type 2, GERD, hyperlipidemia, fibromyalgia, schizophrenia. Patient presents to the ER last night. Sugars have been running high. Patient does live in assisted living. Patient also has a baseline wheezing, cough, and did smoke cigars and pipes. Sugars have been running a bit high. I am not clear how compliant he is with his medications since he is not the best of historians. The patient does follow with Dr. Kathia Elder. He states his sugars have been running high. Patient does not have a cough. Does tolerate his diet. Just feeling rundown. REVIEW OF SYSTEMS: CONSTITUTIONAL: Tired. HEENT: None. RESPIRATORY: As above. CARDIOVASCULAR: None. GASTROINTESTINAL: Some heartburn. GENITOURINARY: None. MUSCULOSKELETAL: Pain in the left shoulder. DERMATOLOGICAL: None. HEMATOLOGICAL: None. LYMPHATIC: None. PSYCHIATRY: History of schizophrenia. NEUROLOGICAL: No focal weakness. 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 PAST SURGICAL HISTORY: Cholecystectomy, surgery for kidney stones. PAST PSYCHIATRIC HISTORY: History of depression and schizophrenia. SOCIAL HISTORY: Lives at [facility], able to get around. Patient has turned down home oxygen in the past. Patient smokes cigarettes, cigars and pipe. Denies alcohol. FAMILY HISTORY: Patient cannot tell. HOME MEDICATIONS: 1. Prednisone taper. 2. Metformin 1000 mg b.i.d. 3. Hydralazine 25 mg p.o. t.i.d. 4. Mucinex 600 mg p.o. daily. 5. Spiriva 1 capsule p.o. daily. 6. Zocor 20 mg p.o. daily. 7. Senokot-S 1 tablet p.o. daily. 8. Trilafon 8 mg p.o. daily. 9. Trilafon 4 mg p.o. daily. 10. Prilosec 20 mg p.o. daily. 11. Claritin 10 mg p.o. daily. 12. Zestril 40 mg p.o. daily. 13. Levaquin 500 mg p.o. daily. 14. Imdur 20 mg p.o. b.i.d. 15. Lantus 30 units subcu daily. 16. Lasix 20 mg p.o. b.i.d. 17. Prozac 40 mg p.o. daily. 18. Zetia 10 mg p.o. daily. 19. Vitamin D3 5000 units p.o. daily. 20. Certa-Chhaya SR 1 tablet p.o. daily. 21. Symbicort 160/4.5, 2 puffs b.i.d. 22. Tenormin 50 mg p.o. daily. ALLERGIES: KEFLEX AND PENICILLIN. PHYSICAL EXAMINATION: Vital signs on presentation: Temperature 98.4, pulse 87, respiration 20, blood pressure 106/60, pulse ox 96% on room air. GENERAL APPEARANCE: Well built, BMI of 35.7, lying in bed, lethargic but arousable. EYES: Pupils equal. Conjunctivae normal. HEENT: Oral cavity normal. NECK: JVD not raised. Mass not palpable. RESPIRATORY: Effort normal. LUNGS: Diminished breath sounds, prolonged expiration wheezing. CARDIOVASCULAR: First and second sounds normal. No edema. ABDOMEN: Soft, nontender. Liver and spleen not palpable. LYMPHATIC: No lymph node palpable in neck or axillae. PSYCHIATRY: Patient able to answer simple questions, but dozes off. NEUROLOGICAL: Pupils equal. No facial asymmetry. Moving all 4 limbs. INVESTIGATIONS: White count 9.7, hemo 14.3, potassium 5, BUN 55, creatinine 1.50. Patient's BUN and creatinine were 45 and 1.11 on 12/09/16. Lactic acid 2.3, troponin 0.015. serum acetone is negative. Patient's sugar on presentation was 245. EKG shows ST-segment changes, nonspecific. Chest x-ray, some infiltrates. BNP is noted. ASSESSMENT: 1. Acute severe chronic obstructive pulmonary disease exacerbation in a current smoker. 2. Chronic nicotine dependence. Did smoke cigarettes, pipe and cigars. 3. Congestive heart failure from diastolic dysfunction. 4. Diabetes mellitus type 2, chronically on inulin, uncontrolled. 5. Gastroesophageal reflux disease. 6. Hyperlipidemia. 7. Fibromyalgia. 8. Schizophrenia. 9. Acute renal failure could be from decreased oral intake in a patient who is also on Lasix and MOHAN inhibitor. PLAN: At this point patient's Lasix and MOHAN inhibitor has been held. Patient will be hydrated. Patient has been put on nebulized bronchodilators, steroids. Accu-Cheks will be closely followed. Patient was counseled against smoking.
[2016-12-15] MEDS: LEVOFLOXACIN 500 MG TAB PO SCH (15:40)
[2016-12-15] MEDS: ATORVASTATIN 10 MG TAB PO SCH (15:42)
[2016-12-15] MEDS: methylPREDNISolone SOD SUCCI 40 MG/ML 1 ML VIAL IV SCH ×2 (15:43→23:46)
[2016-12-15] MEDS: NICOTINE 21MG/24HR PATCH TRANSDERM SCH (16:48)
[2016-12-15] MEDS: IPRATROPIUM-ALBUTEROL 3 ML NEB INHALATION SCH ×2 (18:21→18:56)
[2016-12-15 18:30] LABS: Glucose,Whole Blood 200 mg/dL (75-99)
[2016-12-15 20:13] LABS: Glucose,Whole Blood 262 mg/dL (75-99)
[2016-12-15 21:51] LABS: Glucose,Whole Blood 288 mg/dL (75-99)
[2016-12-16] MEDS: IPRATROPIUM-ALBUTEROL 3 ML NEB INHALATION SCH ×7 (00:04→23:50)
[2016-12-16 07:19] LABS: Glucose,Whole Blood 195 mg/dL (75-99)
[2016-12-16 07:23] LABS: Basophils % (A) 0 %; CHCM 31.8; Eosinophils % (A) 0 %; HCT 44.3 % (39.0-53.0); HDW 2.18; HGB 13.6 gm/dL (13.0-17.5); Luc # (Auto) 0.09; Luc % (Auto) 1; Lymphocytes # (A) 0.7 k/uL (1.0-4.8); Lymphocytes % (A) 6 %; MCH 31.2 pg (25.0-35.0); MCHC 30.8 g/dL (31.0-37.0); MCV 101.2 fL (80.0-100.0); Macrocytosis Slight; Mean Platelet Volume 7.1; Monocytes # (A) 0.5 k/uL (0-1.0); Monocytes % (A) 4 %; Neutrophils # (A) 11.4 k/uL (1.3-7.7); Neutrophils % (A) 89 %; RBC 4.38 m/uL (4.30-5.90); WBC 12.7 k/uL (3.8-10.6); WBC (Perox) 12.91
[2016-12-16] MEDS: metFORMIN 500 MG TAB PO SCH ×2 (07:29→16:19)
[2016-12-16] MEDS: guaiFENesin 600 MG TABLET.ER PO SCH (07:29)
[2016-12-16] MEDS: ISOSORBIDE MONONITRATE 20 MG TAB PO SCH ×2 (07:29→16:20)
[2016-12-16] MEDS: MULTIVITAMINS, THERA 1 EACH TAB PO SCH (07:29)
[2016-12-16] MEDS: PANTOPRAZOLE 40 MG TABLET PO SCH (07:29)
[2016-12-16] MEDS: LORATADINE 10 MG TAB PO SCH (07:29)
[2016-12-16] MEDS: hydrALAZINE HCL 25 MG TAB PO SCH ×3 (07:29→16:19)
[2016-12-16] MEDS: FLUoxetine HCL 20 MG CAP PO SCH (07:29)
[2016-12-16] MEDS: FUROSEMIDE 20 MG TAB PO SCH ×2 (07:29→16:19)
[2016-12-16] MEDS: ATENOLOL 50 MG TAB PO SCH (07:30)
[2016-12-16] MEDS: NICOTINE 21MG/24HR PATCH TRANSDERM SCH (07:30)
[2016-12-16] MEDS: CHOLECALCIFEROL 1,000 UNIT TAB PO SCH (07:30)
[2016-12-16] MEDS: INSULIN LISPRO (humaLOG) 300 UNIT/3 ML VIAL SQ SCH ×4 (07:30→20:47)
[2016-12-16] MEDS: EZETIMIBE 10 MG TAB PO SCH (07:31)
[2016-12-16] MEDS: methylPREDNISolone SOD SUCCI 40 MG/ML 1 ML VIAL IV SCH ×2 (07:31→16:20)
[2016-12-16 07:41] LABS: Anion Gap 9 mmol/L; Blood Urea Nitrogen 44 mg/dL (9-20); Calcium 9.2 mg/dL (8.4-10.2); Carbon Dioxide 23 mmol/L (22-30); Chloride 103 mmol/L (98-107); Glucose 211 mg/dL (74-99); Non-African American GFR(MDRD) >60 (>60 ml/min/1.73 sqM); Potassium 4.9 mmol/L (3.5-5.1); Sodium 135 mmol/L (137-145)
[2016-12-16] MEDS: SYMBICORT 160-4.5 MCG INHALER INHALATION SCH ×2 (07:58→20:01)
[2016-12-16] MEDS: INSULIN GLARGINE 100 UNIT/ML 10 ML VIAL SQ SCH (08:46)
[2016-12-16] MEDS: SENNOSIDES-DOCUSATE SODIUM 1 EACH TAB PO SCH (08:47)
[2016-12-16] MEDS: SODIUM CHLORIDE 0.9% 1,000 ML IV SCH ×2 (10:19→16:20)
[2016-12-16 11:47] LABS: Glucose,Whole Blood 270 mg/dL (75-99)
[2016-12-16] MEDS: PERPHENAZINE 4 MG TAB PO SCH (12:20)
[2016-12-16] MEDS: LEVOFLOXACIN 500 MG TAB PO SCH (16:19)
[2016-12-16] MEDS: ATORVASTATIN 10 MG TAB PO SCH (16:20)
[2016-12-16 16:58] VITALS: RESP 16
[2016-12-16 17:39] LABS: Glucose,Whole Blood 201 mg/dL (75-99)
[2016-12-16 20:09] LABS: Glucose,Whole Blood 219 mg/dL (75-99)
--- NOTE | 2016-12-16 22:37 | PN ---
DATE OF SERVICE: 12/16/2016 PRESENTING COMPLAINT: Wheezing and uncontrolled blood sugars. INTERVAL HISTORY: This is a 71-year-old male who is a smoker. Lives in a group. Has multiple medical comorbidities including congestive heart failure, diabetes type 2, GERD, hyperlipidemia, fibromyalgia, schizophrenia. Patient presented to the emergency department on 12/15/2016 with sugars that were uncontrolled and correction was unable to manage blood glucose. Therefore patient was brought to the emergency room for further management. Today the patient is awake, alert, sitting up in the bed, answering questions, following commands. No acute distress noted or voiced. Review of systems done for constitutional, cardiovascular, gastrointestinal, pulmonary, with relevant findings as above. CURRENT MEDICATIONS: 1. Albuterol, ipratropium. 2. Atenolol. 3. Atorvastatin. 4. Budesonide/Formoterol. 5. Cholecalciferol. 6. ( ). 7. Fluoxetine. 8. Furosemide. 9. Guaifenesen. 10. Hydralazine. 11. Insulin glargine. 12. Humalog insulin. 13. Isosorbide mononitrate. 14. Levofloxacin. 15. Loratadine. 16. Metformin. 17. Methylprednisolone. 18. Multivitamin. 19. Habitrol patch. 20. Pantoprazole. 21. Senna/docusates sodium. PHYSICAL EXAMINATION: VITAL SIGNS: Temperature 97.4, pulse 73, respiratory rate 18, blood pressure 142/83, oxygen saturation 92% on room air. GENERAL APPEARANCE: Patient awake, sitting up in bed, slow to respond but otherwise able to answer all questions. Patient's caregivers from the correction are at the bedside on morning rounds. EYES: Pupils equal. Conjunctivae normal. NECK: JVD not raised. Mass not palpable. LUNGS: Bilateral breath sounds diminished with scattered crackles throughout. RESPIRATORY: Effort normal. Unlabored. CARDIOVASCULAR: S1, S2 normal. No edema noted. ABDOMEN: Soft, nontender. Liver and spleen not palpable. PSYCHIATRY: Alert and oriented x3. Mood and affect normal for situation. INVESTIGATIONS: White blood cell count 12.7, platelet count 220, sodium 135, BUN 44, creatinine 1.07, down from 1.50 on 12/14/2016. ASSESSMENT: 1. Acute severe chronic obstructive pulmonary disease exacerbation in a current smoker. 2. Chronic nicotine dependence. Previously did smoke cigarettes, pipe and cigars. 3. Congestive heart failure from diastolic dysfunction. 4. Diabetes mellitus type 2 chronically on insulin, uncontrolled. 5. Gastroesophageal reflux disease. 6. Hyperlipidemia. 7. Fibromyalgia. 8. Schizophrenia. 9. Acute renal failure, likely due to decreased oral intake in a patient who is also on Lasix and an MOHAN inhibitor. PLAN: Currently, Lasix and MOHAN inhibitor have been held. Continue hydration. Continue nebulized bronchodilators and steroids. Accu-Cheks to be followed closely. Patient was again counseled to stop smoking as were the caseworkers from the correction. The importance of the patient counseled regarding the importance of the patient stopping smoking. Several suggestions were made at the bedside regarding different alternatives to try and help the patient quit smoking. Patient was seen and examined by CORDELIA Sanford and all elements of the case were discussed with attending, Dr. Urena. I performed a history and physical examination of this patient and discussed the same with the dictator. I agree with the dictator's note. Any additional findings/opinions, etc. will be noted.
[2016-12-16] MEDS: LISINOPRIL-HCTZ 20-12.5 MG 1 EACH TAB PO SCH (23:29)
[2016-12-17] MEDS: IPRATROPIUM-ALBUTEROL 3 ML NEB INHALATION SCH ×4 (03:13→15:08)
[2016-12-17 07:27] LABS: Glucose,Whole Blood 160 mg/dL (75-99)
--- NOTE | 2016-12-17 07:42 | PN ---
DATE OF SERVICE: 12/16/2016 ATTENDING NOTE: This patient was seen and examined today. I reviewed the note of my nurse practitioner and agreed with the same. Patient 's breathing is actually better. Sitting up. Patient's home care provider and his provider from ( ) is present. Patient is tolerating a diet. Breathing is actually better. Review of systems done for constitutional, cardiovascular, GI, pulmonary; relevant findings as above. Current medications are reviewed. On examination, temperature 97.4, respirations 16, blood pressure 145/80. LUNGS: Slightly improved air entry, decreased wheezing. CARDIOVASCULAR: First and second sounds normal. PSYCH: Alert and oriented x3. Patient is able to answer questions far more appropriately. INVESTIGATIONS: White count 12.7. Potassium 4.9. ASSESSMENT: 1. Acute chronic obstructive pulmonary disease exacerbation in a current smoker, improving. 2. Chronic nicotine dependence. 3. Congestive heart failure, diastolic dysfunction; PLAN: Care was discussed in detail with the patient's providers at the bedside. Patient's acute renal failure is actually improving . We will put the patient back on Zestril though will put him on Zestril with hydrochlorothiazide combination. Looking at possible discharge in 24 hours.
[2016-12-17] MEDS: INSULIN LISPRO (humaLOG) 300 UNIT/3 ML VIAL SQ SCH ×2 (08:05→12:20)
[2016-12-17] MEDS: INSULIN GLARGINE 100 UNIT/ML 10 ML VIAL SQ SCH (08:06)
[2016-12-17] MEDS: ATENOLOL 50 MG TAB PO SCH (08:08)
[2016-12-17] MEDS: NICOTINE 21MG/24HR PATCH TRANSDERM SCH (08:08)
[2016-12-17] MEDS: LORATADINE 10 MG TAB PO SCH (08:08)
[2016-12-17] MEDS: metFORMIN 500 MG TAB PO SCH (08:08)
[2016-12-17] MEDS: PANTOPRAZOLE 40 MG TABLET PO SCH (08:08)
[2016-12-17] MEDS: FUROSEMIDE 20 MG TAB PO SCH (08:09)
[2016-12-17] MEDS: hydrALAZINE HCL 25 MG TAB PO SCH ×2 (08:09→12:20)
[2016-12-17] MEDS: EZETIMIBE 10 MG TAB PO SCH (08:10)
[2016-12-17] MEDS: guaiFENesin 600 MG TABLET.ER PO SCH (08:10)
[2016-12-17] MEDS: CHOLECALCIFEROL 1,000 UNIT TAB PO SCH (08:10)
[2016-12-17] MEDS: MULTIVITAMINS, THERA 1 EACH TAB PO SCH (08:11)
[2016-12-17] MEDS: FLUoxetine HCL 20 MG CAP PO SCH (08:11)
[2016-12-17] MEDS: ISOSORBIDE MONONITRATE 20 MG TAB PO SCH ×2 (08:11→14:45)
[2016-12-17] MEDS: SENNOSIDES-DOCUSATE SODIUM 1 EACH TAB PO SCH (08:12)
[2016-12-17] MEDS: LISINOPRIL-HCTZ 20-12.5 MG 1 EACH TAB PO SCH (08:12)
[2016-12-17] MEDS: SYMBICORT 160-4.5 MCG INHALER INHALATION SCH (08:17)
[2016-12-17] MEDS ORDERED: predniSONE 20 MG TAB PO SCH (09:00)
[2016-12-17 09:44] LABS: Basophils # (A) 0.1 k/uL (0-0.2); Basophils % (A) 1 %; CH 32.7; CHCM 33.5; Eosinophils % (A) 0 %; HCT 46.8 % (39.0-53.0); HGB 15.6 gm/dL (13.0-17.5); Luc # (Auto) 0.13; Luc % (Auto) 1; Lymphocytes # (A) 1.7 k/uL (1.0-4.8); Lymphocytes % (A) 12 %; MCH 32.7 pg (25.0-35.0); MCHC 33.3 g/dL (31.0-37.0); MCV 98.1 fL (80.0-100.0); Mean Platelet Volume 7.5; Monocytes % (A) 7 %; Neutrophils # (A) 11.1 k/uL (1.3-7.7); Neutrophils % (A) 79 %; RBC 4.77 m/uL (4.30-5.90); RDW 13.9 % (11.5-15.5); WBC (Perox) 13.36
[2016-12-17 10:23] LABS: Anion Gap 8 mmol/L; Blood Urea Nitrogen 42 mg/dL (9-20); Calcium 9.8 mg/dL (8.4-10.2); Carbon Dioxide 28 mmol/L (22-30); Chloride 102 mmol/L (98-107); Glucose 148 mg/dL (74-99); Non-African American GFR(MDRD) >60 (>60 ml/min/1.73 sqM); Potassium 4.9 mmol/L (3.5-5.1); Sodium 138 mmol/L (137-145)
[2016-12-17 11:16] LABS: Glucose,Whole Blood 214 mg/dL (75-99)
[2016-12-17] MEDS ORDERED: ACETAMINOPHEN TAB 325 MG TAB PO PRN (11:42)
[2016-12-17] MEDS: PERPHENAZINE 4 MG TAB PO SCH (13:00)
[2016-12-17] MEDS: ATORVASTATIN 10 MG TAB PO SCH (14:44)
[2016-12-17] MEDS: LEVOFLOXACIN 500 MG TAB PO SCH (14:44)
[2016-12-17 15:53] VITALS: BP 145/85; PULSE 86; TEMP 97.3
--- NOTE | 2016-12-17 19:09 | PN ---
DATE OF ADMISSION: 12/15/2016 DATE OF SERVICE: 12/17/2016 PRESENTING COMPLAINT: Wheezing and uncontrolled blood sugars. INTERVAL HISTORY: This is a 71-year-old male who is a smoker who [facility]. Has multiple medical comorbidities including congestive heart failure, diabetes type 2, GERD, hyperlipidemia, fibromyalgia and schizophrenia. Patient presented to the emergency department on 12/15/2016 with sugars that were uncontrolled and the jail was unable to manage blood glucose. Therefore patient was brought to the emergency room for further management. Today the patient is awake, alert, lying in bed answering questions, following commands. He is in no acute distress. Review of systems done for constitutional, cardiovascular, gastrointestinal, pulmonary with relevant findings as above. CURRENT MEDICATIONS: Albuterol, ipratropium, atenolol, atorvastatin, fluoxetine, insulin, methylprednisolone. PHYSICAL EXAMINATION: Temperature 97.4, pulse 85, respiratory rate 16, blood pressure 155/97, oxygen saturation 97% on room air. GENERAL APPEARANCE: Patient is awake, alert, sitting in bed, calm and cooperative. Would like to go home. Pupils equal. Conjunctivae normal. NECK: JVD not raised. Mass not palpable. LUNGS: Diminished breath sounds bilaterally, occasional scattered wheezes noted. Respiratory effort normal, unlabored. CARDIOVASCULAR: S1, S2 normal. Trace edema noted to bilateral lower extremities. ABDOMEN: Soft, nontender. Liver and spleen not palpable. PSYCHIATRIC: Alert and oriented x3. Mood and affect normal. INVESTIGATIONS: White blood cell count 14.0. Blood glucose 148. ASSESSMENT: 1. Acute on chronic obstructive pulmonary disease exacerbation in a current smoker, improving. 2. Chronic nicotine dependence. 3. Chronic congestive heart failure, diastolic dysfunction. PLAN: Care was discussed on 12/16/2016 with patient's providers at the bedside. Patient's acute renal failure is improving. We will put the patient back on Zestril, although it will be in the form of Zestril with hydrochlorothiazide. Patient was seen and examined by nurse practitioner, Hillary Sanford, and all elements of the case was discussed with the attending, Dr. Urena.
--- NOTE | 2016-12-18 12:23 | DS ---
DATE OF ADMISSION: 12/15/2016 DATE OF DISCHARGE: 12/17/2016 FINAL DIAGNOSES: 1. Acute severe chronic obstructive pulmonary disease exacerbation in a smoker. 2. Chronic nicotine dependence. Patient is a cigarette smoker, pipe, cigars. 3. Chronic congestive heart failure from diastolic dysfunction, ejection fraction not known 4. Diabetes mellitus type 2, chronically on insulin, uncontrolled. 5. Gastroesophageal reflux disease. 6. Hyperlipidemia. 7. Fibromyalgia. 8. Schizophrenia. 9. Acute renal failure, could be from decreased oral intake in a patient who is on both Lasix and MOHAN inhibitor. HOSPITAL COURSE: This is a patient who is a smoker, presents with COPD exacerbation. Patient's creatinine 1.5, did come down to 1.01 by the time of discharge. Patient's EF is preserved. The patient was counseled against smoking. Also, talked to his home provider and his [facility] worker. On discharge, LUNGS: Decreased breath sounds. CARDIOVASCULAR: First and second sounds normal. Patient able to questions. DISCHARGE MEDICATIONS: 1. Zetia 10 mg a day. 2. Prozac 40 mg a day. 3. Lantus 30 units subcu daily. 4. Claritin 10 mg a day. 5. Prilosec 20 mg a day. 6. Senokot-S 1 tablet p.o. daily. 7. Tenormin 50 mg p.o. daily. 8. Certa-Chhaya S R one tab p.o. daily. 9. Vitamin D3, 5000 units p.o. daily. 10. Mucinex 600 mg p.o. daily. 11. Symbicort 160/4.5 two puffs b.i.d. 12. Imdur 20 mg b.i.d. 13. Trilafon 4 mg p.o. daily at noon and 8 mg in the morning. 14. Zocor 20 mg p.o. daily. 15. Lasix 20 mg p.o. b.i.d. 16. Hydralazine 25 mg p.o. t.i.d. 17. Metformin 1000 mg p.o. b.i.d. 18. Humalog 4 units a.c. t.i.d. 19. DuoNeb t.i.d. 20. Levaquin 500 mg p.o. daily for 5 tablets. 21. Zestoretic 20/12.5 one tablet p.o. b.i.d. 22. Nicotine 21 patch daily, 14 patches. 23. Prednisone taper. Patient's Lasix may be discontinued down the road. Follow up with Dr. El in 3 days. LABS: BMP in 3 to 5 days.
== END 2016-12-17 16:40 | disposition home or self-care (01) | DRG 191 ==
LOC: EC 19:05 → 6SEL 12-15 02:02 → 5MS5E 12-15 14:59 → UNDODISIN 12-17 16:40
PROVIDERS: ADMIT Hospitalist; ATTEND Hospitalist
DX: J44.1 Chronic obstructive pulmonary disease with (acute) exacerbation (principal); I50.32 Chronic diastolic (congestive) heart failure; N17.9 Acute kidney failure, unspecified; E11.65 Type 2 diabetes mellitus with hyperglycemia; I11.0 Hypertensive heart disease with heart failure; E78.5 Hyperlipidemia, unspecified; F17.210 Nicotine dependence, cigarettes, uncomplicated; F20.9 Schizophrenia, unspecified; K21.9 Gastro-esophageal reflux disease without esophagitis; M79.7 Fibromyalgia; Z79.4 Long term (current) use of insulin; Z79.51 Long term (current) use of inhaled steroids; Z79.84 Long term (current) use of oral hypoglycemic drugs; Z79.899 Other long term (current) drug therapy; Z87.442 Personal history of urinary calculi
CPT/HCPCS: 36415; 70450; 71010; 71020; 72125; 72170; 72220; 80048; 80053; 81003; 82009; 82550; 82553; 83036; 83605; 83735; 83880; 84484; 85025; 85610; 85730; 87040; 93005; 94640; 95819; 96361; 96365; 96374; 99285; 99291

== ENCOUNTER 2016-12-17 19:52 | Inpatient (IN) | payer MEDICARE, OTHER ==
[2016-12-17] MEDS ORDERED: SODIUM CHLORIDE 0.9% 1,000 ML IV STA (19:58)
--- NOTE | 2016-12-17 20:08 | ED ---
Fall HPI - General Stated Complaint: Fall Time Seen by Provider: 12/17/16 19:52 Source: patient, EMS, RN notes reviewed, old records reviewed Mode of arrival: wheelchair - History of Present Illness Initial Comments: This is a 61-year-old male who apparently was just discharged from the hospital today about 3 hours prior to readmission by ER/EMS who apparently found on the floor at his [facility] home.'s unclear how he ended up on the floor his possibly unconscious possibly fell no definite reports of injury he was C-collared per paramedics for precaution. The patient's unclear whether he has had or neck pain. He is minimally responsive upon initial contact but throughout the during to the hospital he is becoming more responsive to questioning. Patient does have a history per old charting of type 2 diabetes GERD hyperlipidemia fibromyalgia and schizophrenia. He was recently admitted for elevated blood sugar. He also has a history of CHF COPD aortic root dilatation cholecystectomy surgery for kidney stones and depression. The patient was incontinent of urine and stool he did have a blood sugar of over 200 per paramedics MD Complaint: fall - Related Data Home Medications Medication Instructions Recorded Confirmed Ezetimibe [Zetia] 10 mg PO DAILY@79910/05/15 12/17/16 FLUoxetine HCL [PROzac] 40 mg PO DAILY@79910/05/15 12/17/16 Insulin Glargine [Lantus] 30 unit SQ DAILY@79910/05/15 12/17/16 Loratadine [Claritin] 10 mg PO DAILY@79910/05/15 12/17/16 Omeprazole [PriLOSEC] 20 mg PO DAILY@79910/05/15 12/17/16 Sennosides-Docusate Sodium 1 tab PO DAILY@79910/05/15 12/17/16 [Senokot-S] Atenolol [Tenormin] 50 mg PO DAILY@79902/05/16 12/17/16 Certa-Chhaya S R 1 tab PO DAILY@79902/05/16 12/17/16 Cholecalciferol [Vitamin D3] 5,000 unit PO DAILY@79902/05/16 12/17/16 guaiFENesin [Mucinex] 600 mg PO DAILY@79902/05/16 12/17/16 Budesonide-Formot 160-4.5 Mcg 2 puff INHALATION RT-BID@0800,2100 03/19/16 [Symbicort 160-4.5 Mcg Inhaler] Isosorbide Mononitrate 20 mg PO BID@0800,1500 11/28/16 12/17/16 Perphenazine [Trilafon] 4 mg PO DAILY@1200 11/28/16 12/17/16 Perphenazine [Trilafon] 8 mg PO DAILY@0800 11/28/16 12/17/16 Simvastatin [Zocor] 20 mg PO DAILY@1500 11/28/16 12/17/16 Furosemide [Lasix] 20 mg PO BID@0800,1600 12/05/16 12/17/16 hydrALAZINE HCL [Apresoline] 25 mg PO TID@0800,1200,1700 12/14/16 12/17/16 metFORMIN HCL 1,000 mg PO BID@0800,1700 12/14/16 12/17/16 Previous Rx's Medication Instructions Recorded INSULIN LISPRO (HumaLOG) [HumaLOG] 4 units SQ AC-TID #1 vial 12/17/16 Ipratropium-Albuterol Nebulize 3 ml INHALATION TID #90 ampul.neb 12/17/16 [Duoneb 0.5 mg-3 mg/3 ml Soln] Levofloxacin [Levaquin] 500 mg PO DAILY@0800 #5 tab 12/17/16 Lisinopril-Hctz 20-12.5 mg 1 each PO BID #60 tab 12/17/16 [Zestoretic 20-12.5] Nicotine 21Mg/24Hr Patch [Habitrol] 1 patch TRANSDERM DAILY #14 patch 12/17/16 predniSONE 10 mg PO DAILY #30 tab 12/17/16 Allergies Allergy/AdvReac Type Severity Reaction Status Date / Time cephalexin monohydrate Allergy Unknown Verified 12/17/16 20:06 [From Keflex] Penicillins Allergy Unknown Verified 12/17/16 20:06 Review of Systems ROS Statement: Those systems with pertinent positive or pertinent negative responses have been documented in the HPI. ROS Other: All systems not noted in ROS Statement are negative. Limitations: ROS unobtainable due to patients medical condition Past Medical History Past Medical History: Heart Failure, COPD, Diabetes Mellitus, Fibromyalgia, GERD /Reflux, Hyperlipidemia, Hypertension Additional Past Medical History / Comment(s): IDDM type II, neuropathy bilateral feet with past sores, refuses home oxygen and updraft tx, L eye thick cataract, bilateral dry eyes, fatty tumor posterior neck, recent fall 1 week ago with L humerus fracture-not casted-uses a sling-orhtopedic physician instructed he can use arm minimally-no lifting shoulder up or picking up weight , possible hx of kidney stones per pt. History of Any Multi-Drug Resistant Organisms: None Reported Past Surgical History: Cholecystectomy Additional Past Surgical History / Comment(s): Possible hx of surgery for kidney stones per pt. Past Anesthesia/Blood Transfusion Reactions: No Reported Reaction Past Psychological History: Depression, Schizophrenia Additional Psychological History / Comment(s): Pt resides at [facility]. He ambulates without device. He has visiting physician and visiting nurse. He refuses home O2 and home updraft txs. Pt recently learned his 2 out of state sisters are selling the family home. This has made him sad and when he is sad, he gets more obstenate with meds etc per caretakers. His sisters send him letters and care packages often. He writes letters as well. Smoking Status: Current every day smoker Past Alcohol Use History: None Reported Additional Past Alcohol Use History / Comment(s): Smokes cigarettes : 1.5 ppd, occasional cigar and pipe. Past Drug Use History: None Reported - Past Family History Mother History Unknown: Yes Father History Unknown: Yes General Exam - General Exam Comments Initial Comments: This is a well-developed well-nourished awake alert but is somewhat lethargic male he does seem to respond to questions but then tends to drift off fairly often. He has [place] Coma Scale of 14 at this time he does have a cervical collar in place Limitations: altered mental status, physical limitation General appearance: alert, in no apparent distress, lethargic Head exam: Present: atraumatic, normocephalic, normal inspection Eye exam: Present: normal appearance, PERRL, EOMI. Absent: scleral icterus, conjunctival injection, periorbital swelling ENT exam: Present: normal exam, mucous membranes moist Neck exam: Present: normal inspection, other (Possible tenderness palpation of the paraspinous muscles no step-off or crepitation). Absent: tenderness, meningismus, lymphadenopathy Respiratory exam: Present: normal lung sounds bilaterally. Absent: respiratory distress, wheezes, rales, rhonchi, stridor Cardiovascular Exam: Present: regular rate, normal rhythm, normal heart sounds. Absent: systolic murmur, diastolic murmur, rubs, gallop, clicks GI/Abdominal exam: Present: soft, normal bowel sounds. Absent: distended, tenderness, guarding, rebound, rigid Rectal exam: Present: deferred Extremities exam: Present: normal inspection, full ROM, normal capillary refill. Absent: tenderness, pedal edema, joint swelling, calf tenderness Back exam: Present: normal inspection Neurological exam: Present: alert, altered, CN II-XII intact Psychiatric exam: Present: normal mood, flat affect Skin exam: Present: warm, dry, intact, normal color. Absent: rash Course Vital Signs 12/17/16 12/17/16 19:57 22:00 Temperature 98.8 F Pulse Rate 84 78 Respiratory 18 20 Rate Blood Pressure 124/74 132/84 O2 Sat by Pulse 92 L 97 Oximetry Medical Decision Making - Medical Decision Making Reevaluation patient reveals him to be awake and alert but he does have episodes where he has some slurred speech and seems somewhat incoherent. CAT scan is negative for acute findings he does demonstrate evidence of hypomagnesemia. Patient will be admitted for evaluation for syncope. Seizures not excluded is no focal deficits however. - Lab Data Result diagrams: 12/17/16 20:20 12/17/16 20:20 Lab Results 12/17/16 12/17/16 12/17/16 Range/Units 19:58 20:20 20:20 WBC 12.4 H (3.8-10.6) k/uL RBC 4.54 (4.30-5.90) m/uL Hgb 14.4 (13.0-17.5) gm/dL Hct 45.2 (39.0-53.0) % MCV 99.5 (80.0-100.0) fL MCH 31.7 (25.0-35.0) pg MCHC 31.8 (31.0-37.0) g/dL RDW 14.2 (11.5-15.5) % Plt Count 231 (150-450) k/uL Neutrophils % 88 % Lymphocytes % 6 % Monocytes % 5 % Eosinophils % 0 % Basophils % 0 % Neutrophils # 10.9 H (1.3-7.7) k/uL Lymphocytes # 0.7 L (1.0-4.8) k/uL Monocytes # 0.6 (0-1.0) k/uL Eosinophils # 0.0 (0-0.7) k/uL Basophils # 0.0 (0-0.2) k/uL PT (9.0-12.0) sec INR (<1.1) APTT (22.0-30.0) sec Sodium (137-145) mmol/L Potassium (3.5-5.1) mmol/L Chloride (98-107) mmol/L Carbon Dioxide (22-30) mmol/L Anion Gap mmol/L BUN (9-20) mg/dL Creatinine (0.66-1.25) mg/dL Est GFR (MDRD) Af Amer (>60 ml/min/1.73 sqM) Est GFR (MDRD) Non-Af (>60 ml/min/1.73 sqM) Glucose (74-99) mg/dL POC Glucose (mg/dL) 258 H (75-99) mg/dL POC Glu Farm Manager ID Dunsmore, Edwige Calcium (8.4-10.2) mg/dL Magnesium (1.6-2.3) mg/dL Total Bilirubin (0.2-1.3) mg/dL AST (17-59) U/L ALT (21-72) U/L Alkaline Phosphatase (38-126) U/L Total Creatine Kinase 61 (55-170) U/L CK-MB (CK-2) 3.6 H* (0.0-2.4) ng/mL CK-MB (CK-2) Rel Index 5.9 Troponin I <0.012 (0.000-0.034) ng/mL Total Protein (6.3-8.2) g/dL Albumin (3.5-5.0) g/dL 12/17/16 12/17/16 Range/Units 20:20 20:20 WBC (3.8-10.6) k/uL RBC (4.30-5.90) m/uL Hgb (13.0-17.5) gm/dL Hct (39.0-53.0) % MCV (80.0-100.0) fL MCH (25.0-35.0) pg MCHC (31.0-37.0) g/dL RDW (11.5-15.5) % Plt Count (150-450) k/uL Neutrophils % % Lymphocytes % % Monocytes % % Eosinophils % % Basophils % % Neutrophils # (1.3-7.7) k/uL Lymphocytes # (1.0-4.8) k/uL Monocytes # (0-1.0) k/uL Eosinophils # (0-0.7) k/uL Basophils # (0-0.2) k/uL PT 12.2 H (9.0-12.0) sec INR 1.2 (<1.1) APTT 22.1 (22.0-30.0) sec Sodium 131 L (137-145) mmol/L Potassium 4.9 (3.5-5.1) mmol/L Chloride 94 L (98-107) mmol/L Carbon Dioxide 28 (22-30) mmol/L Anion Gap 9 mmol/L BUN 49 H (9-20) mg/dL Creatinine 1.27 H (0.66-1.25) mg/dL Est GFR (MDRD) Af Amer >60 (>60 ml/min/1.73 sqM) Est GFR (MDRD) Non-Af 56 (>60 ml/min/1.73 sqM) Glucose 252 H (74-99) mg/dL POC Glucose (mg/dL) (75-99) mg/dL POC Glu Farm Manager ID Calcium 9.5 (8.4-10.2) mg/dL Magnesium 1.3 L (1.6-2.3) mg/dL Total Bilirubin 0.5 (0.2-1.3) mg/dL AST 29 (17-59) U/L ALT 56 (21-72) U/L Alkaline Phosphatase 133 H (38-126) U/L Total Creatine Kinase (55-170) U/L CK-MB (CK-2) (0.0-2.4) ng/mL CK-MB (CK-2) Rel Index Troponin I (0.000-0.034) ng/mL Total Protein 6.0 L (6.3-8.2) g/dL Albumin 3.4 L (3.5-5.0) g/dL - EKG Data -: EKG Interpreted by Me EKG shows normal: sinus rhythm (Sinus rhythm rate of 83. Interval 1:30 QRS duration 78 QT/QTC of 370/[address] configuration and normal QRS-T angle no acute change compared to EKG dated 12/14/16) Critical Care Time Critical Care Time: Yes Critical Care Time: 31 minutes of critical care time which includes initial presentation with monitoring of the EMS run and discussed with paramedics. History physical lab and x-rays evaluation of the CAT scan x-rays. Evaluation of old charting. Reevaluation patient on several occasions. Discussion with the medicine service admission orders and documentation of the above. Disposition Clinical Impression: Syncope and collapse, Hypomagnesemia, Prerenal azotemia Disposition: ADMITTED IP TO THIS HOSP Condition: Stable
[2016-12-17 20:11] LABS: Glucose,Whole Blood 258 mg/dL (75-99)
[2016-12-17 20:45] LABS: Basophils % (A) 0 %; CH 32.4; CHCM 32.7; Eosinophils % (A) 0 %; HCT 45.2 % (39.0-53.0); HDW 2.19; HGB 14.4 gm/dL (13.0-17.5); Luc # (Auto) 0.08; Luc % (Auto) 1; Lymphocytes # (A) 0.7 k/uL (1.0-4.8); Lymphocytes % (A) 6 %; MCH 31.7 pg (25.0-35.0); MCHC 31.8 g/dL (31.0-37.0); MCV 99.5 fL (80.0-100.0); Mean Platelet Volume 6.9; Monocytes # (A) 0.6 k/uL (0-1.0); Monocytes % (A) 5 %; Neutrophils # (A) 10.9 k/uL (1.3-7.7); Neutrophils % (A) 88 %; RBC 4.54 m/uL (4.30-5.90); RDW 14.2 % (11.5-15.5); WBC 12.4 k/uL (3.8-10.6); WBC (Perox) 12.36
[2016-12-17 20:57] LABS: ALT 56 U/L (21-72); AST 29 U/L (17-59); Alkaline Phosphatase 133 U/L (38-126); Anion Gap 9 mmol/L; Blood Urea Nitrogen 49 mg/dL (9-20); Calcium 9.5 mg/dL (8.4-10.2); Carbon Dioxide 28 mmol/L (22-30); Chloride 94 mmol/L (98-107); Glucose 252 mg/dL (74-99); Magnesium 1.3 mg/dL (1.6-2.3); Non-African American GFR(MDRD) 56 (>60 ml/min/1.73 sqM); Potassium 4.9 mmol/L (3.5-5.1); Sodium 131 mmol/L (137-145); Total Bilirubin 0.5 mg/dL (0.2-1.3)
[2016-12-17 21:01] LABS: INR 1.2 (<1.1); Prothrombin Time 12.2 sec (9.0-12.0)
[2016-12-17 21:02] LABS: Creatine Kinase 61 U/L (55-170)
--- NOTE | 2016-12-17 21:08 | CT ---
EXAMINATION TYPE: CT brain laureine wo con DATE OF EXAM: 12/17/2016 8:56 PM COMPARISON: 11/28/2016 HISTORY: Unwitnessed fall today. CT DLP: 1723.10 mGycm Automated exposure control for dose reduction was used. TECHNIQUE: CT scan of the head and cervical spine are performed without contrast. FINDINGS: There is cerebral cortical atrophy. There is no mass effect nor midline shift. There is n o sign of intracranial hemorrhage. The calvarium is intact. There is narrowing of cervical disc spaces with spur formation. There is mild straightening of the ve rtebra. Posterior elements are intact. There is multilevel mild hypertrophic facet arthropathy. Skull base is intact. There is no evidence of a fracture. IMPRESSION: Cerebral atrophy. No acute intracranial abnormality. Multilevel spondylosis in the cervical spine. No significant change compared to old exam.
[2016-12-17 21:12] LABS: Partial Thromboplastin Time 22.1 sec (22.0-30.0)
[2016-12-17 21:14] LABS: Troponin I <0.012 ng/mL (0.000-0.034)
[2016-12-17 21:21] LABS: Creatine Kinase MB 3.6 ng/mL (0.0-2.4)
[2016-12-17] MEDS ORDERED: MAGNESIUM SULFATE-D5W PMX 1 GM in DEXTROSE/WATER 1 100ML.BAG IVPB ONE (21:34)
--- NOTE | 2016-12-17 22:02 | XR ---
EXAMINATION TYPE: XR chest 1V portable DATE OF EXAM: 12/17/2016 9:27 PM COMPARISON: 12/14/2016 HISTORY: Fell today. Pain. TECHNIQUE: Single frontal view of the chest is obtained. FINDINGS: There is no heart failure nor confluent pneumonic infiltrate. Old right sided healed rib f racture is noted. There are no hilar masses. There is probably old left-sided healed rib fracture. Th ere are chest leads. There is no sign of a pneumothorax. IMPRESSION: Bilateral old rib fractures. No acute cardiopulmonary disease. There is probably no guidry ge compared to recent exam. Normal heart.
--- NOTE | 2016-12-17 22:03 | XR ---
EXAMINATION TYPE: XR pelvis AP view DATE OF EXAM: 12/17/2016 9:27 PM COMPARISON: NONE HISTORY: Pain. Fell today. TECHNIQUE: Single view FINDINGS: Pelvic ring appears intact. There is calcification in the left femoral artery. There are di stended small bowel loops consistent with ileus. There is no sign of a mass. Sacroiliac joints appear intact. IMPRESSION: No fracture seen. Intestinal ileus. Atherosclerotic vascular disease.
[2016-12-17] MEDS ORDERED: NALOXONE 0.4 MG/ML 1 ML VIAL IV PRN (22:17)
[2016-12-17 23:01] LABS: Appearance,Urine Clear (Clear); Bilirubin,Urine Negative (Negative); Glucose,Urine (UA) Negative (Negative); Ketones,Urine Negative (Negative); Leukocyte Esterase,Urine Negative (Negative); Nitrite,Urine Negative (Negative); Protein,Urine Trace (Negative); Specific Gravity,Urine 1.009 (1.001-1.035); UA Billing (MACRO vs. MICRO) CHEM; Urobilinogen,Urine <2.0 mg/dL (<2.0)
[2016-12-17] MEDS: SODIUM CHLORIDE 0.9% 1,000 ML IV SCH (23:44)
[2016-12-17 23:55] VITALS: BMI 35.9
[2016-12-18 02:16] LABS: Glucose,Whole Blood 135 mg/dL (75-99)
[2016-12-18 07:10] LABS: Glucose,Whole Blood 96 mg/dL (75-99)
[2016-12-18] MEDS: IPRATROPIUM-ALBUTEROL 3 ML NEB INHALATION SCH ×7 (08:14→20:06)
[2016-12-18] MEDS: INSULIN LISPRO (humaLOG) 300 UNIT/3 ML VIAL SQ SCH ×3 (10:57→18:14)
[2016-12-18] MEDS: hydrALAZINE HCL 25 MG TAB PO SCH ×3 (10:58→18:15)
[2016-12-18] MEDS: FUROSEMIDE 20 MG TAB PO SCH ×2 (10:58→18:14)
[2016-12-18] MEDS: PERPHENAZINE 4 MG TAB PO SCH ×2 (10:59→14:22)
[2016-12-18] MEDS: FLUoxetine HCL 20 MG CAP PO SCH (10:59)
[2016-12-18] MEDS: LISINOPRIL-HCTZ 20-12.5 MG 1 EACH TAB PO SCH ×2 (10:59→21:41)
[2016-12-18] MEDS: ISOSORBIDE MONONITRATE 20 MG TAB PO SCH ×2 (10:59→14:30)
[2016-12-18] MEDS: metFORMIN 500 MG TAB PO SCH ×2 (11:00→18:14)
[2016-12-18] MEDS: LORATADINE 10 MG TAB PO SCH (11:00)
[2016-12-18] MEDS: PANTOPRAZOLE 40 MG TABLET PO SCH (11:00)
[2016-12-18] MEDS: LEVOFLOXACIN 500 MG TAB PO SCH (11:00)
[2016-12-18] MEDS: SODIUM CHLORIDE 0.9% 1,000 ML IV SCH ×2 (11:01→20:27)
[2016-12-18] MEDS: EZETIMIBE 10 MG TAB PO SCH (11:02)
[2016-12-18] MEDS: ATENOLOL 50 MG TAB PO SCH (11:02)
[2016-12-18] MEDS: guaiFENesin 600 MG TABLET.ER PO SCH (11:02)
[2016-12-18] MEDS: CHOLECALCIFEROL 1,000 UNIT TAB PO SCH (11:02)
[2016-12-18] MEDS: SENNOSIDES-DOCUSATE SODIUM 1 EACH TAB PO SCH (11:08)
[2016-12-18] MEDS: INSULIN GLARGINE 100 UNIT/ML 10 ML VIAL SQ SCH (11:08)
[2016-12-18 11:33] LABS: Glucose,Whole Blood 186 mg/dL (75-99)
[2016-12-18] MEDS: NICOTINE 21MG/24HR PATCH TRANSDERM SCH (14:21)
[2016-12-18] MEDS: ATORVASTATIN 10 MG TAB PO SCH (14:21)
[2016-12-18] MEDS: ACETAMINOPHEN TAB 325 MG TAB PO PRN ×2 (14:22→20:25)
[2016-12-18] MEDS: predniSONE 10 MG TAB PO SCH (14:23)
[2016-12-18 17:23] LABS: Glucose,Whole Blood 91 mg/dL (75-99)
--- NOTE | 2016-12-18 19:43 | HP ---
DATE OF ADMISSION: 12/17/2016 PRESENTING COMPLAINT: Near-syncope. HISTORY OF PRESENTING COMPLAINT: This is a 71-year-old patient with a rather extensive medical history who was just discharged yesterday from the hospital following a diagnosis of COPD exacerbation. Patient's chronic stable medical conditions include congestive heart failure, diabetes mellitus, type 2, GERD, hyperlipidemia, fibromyalgia, schizophrenia. Patient when discharged went home and just felt weak and actually went down. He said he never actually really passed out, he thinks. Just tired and rundown. Patient's breathing is better. Tolerating his diet. REVIEW OF SYSTEMS: CONSTITUTIONAL: Tired. HEENT: None. RESPIRATORY: Occasional wheezing. CARDIOVASCULAR: None. GASTROINTESTINAL: Heartburn. GENITOURINARY: None. MUSCULOSKELETAL: Pain in the left shoulder. DERMATOLOGICAL: None. HEMATOLOGIC: None. LYMPHATICS: None. PSYCHIATRY: History of schizophrenia. NEUROLOGICAL: No focal weakness. PAST MEDICAL HISTORY: 1. Congestive heart failure, diastolic dysfunction. 2. COPD. 3. Aortic root dilatation 3.9 cm. 4. Diabetes mellitus, type 2. 5. GERD. 6. Hyperlipidemia. 7. Fibromyalgia. 8. Schizophrenia. 9. Dry eyes. 10. Fatty tumor in the posterior neck. PAST SURGICAL HISTORY: 1. Cholecystectomy. 2. Surgery for kidney stones. PAST PSYCHIATRIC HISTORY: History of depression, schizophrenia. SOCIAL HISTORY: Patient lives at ( ) [facility]. Able to get around. Patient does smoke cigarettes, cigars and a pipe. Patient's legal guardian is Christ Pickett. FAMILY HISTORY: Noncontributory to presentation. HOME MEDICATIONS: 1. Prednisone taper. 2. Metformin 1000 mg p.o. b.i.d. 3. Hydralazine 25 mg t.i.d. 4. Mucinex 600 mg p.o. daily. 5. Zocor 20 mg p.o. daily. 6. Senokot-S one tablet p.o. daily. 7. Trilafon 8 mg in the morning, 4 mg in the afternoon. 8. Prilosec 20 mg p.o. daily. 9. Nicotine patch daily. 10. Claritin 10 mg p.o. daily. 11. Zestoretic 30/07.5 one tablet p.o. b.i.d. 12. Levaquin 500 mg p.o. daily. 13. Imdur 20 mg p.o. b.i.d. 14. DuoNeb t.i.d. 15. Lantus 30 units subcutaneously daily. 16. Humalog 4 units before meals t.i.d. 17. Lasix 20 mg p.o. b.i.d. 18. Prozac 40 mg p.o. daily. 19. Zetia 10 mg p.o. daily. 20. Vitamin D3 5000 units p.o. daily. 21. Symbicort 160/4.5 two puffs b.i.d. 22. Tenormin 50 mg p.o. daily. ALLERGIES: PENICILLIN, KEFLEX. On examination, temperature 97.4, pulse 77, respiration 24, blood pressure 102/54, pulse ox 95% on room air. Patient's blood pressure yesterday evening was actually 132/84. GENERAL APPEARANCE: Well built; BMI of 35.7. Lying in bed. Awake. Tired-appearing. EYES: Pupils equal. Conjunctivae normal. HEENT: Oral cavity missing teeth. NECK: JVD not raised. Mass not palpable. RESPIRATORY: Effort normal. LUNGS: Slightly decreased breath sounds. Mild wheezing. CARDIOVASCULAR: First and second sounds normal. No edema. ABDOMEN: Soft, nontender. Liver and spleen not palpable. LYMPHATIC: No lymph node palpable in neck or axillae. PSYCHIATRY: Patient is able to answer simple questions. Mood and affect normal. NEUROLOGICAL: Pupils equal. Cranial nerves grossly intact. Power and sensation grossly intact. INVESTIGATIONS: White count 12.4, hemoglobin 14.4. Potassium 4.9. BUN 49, creatinine 1.27. Patient's creatinine was 1.01 when he left. ASSESSMENT: 1. Near-syncope; could be vasovagal in a patient with somewhat ( ) condition. 2. Chronic obstructive pulmonary disease in a current smoker. 3. Chronic nicotine dependence. Patient is a cigarette smoker, including pipe and cigars. 4. Chronic congestive heart failure from diastolic dysfunction; ejection fraction not known. 5. Diabetes mellitus, type 2, chronically on insulin. 6. Gastroesophageal reflux disease. 7. Hyperlipidemia. 8. Fibromyalgia. 9. Schizophrenia. PLAN: Patient will be very gently hydrated. Will get orthostatics on the patient. Home medications will be resumed. Care was continued with his 2 sisters at the bedside. Will ask Physical Therapy to see the patient to see if patient needs any rehab. This was discussed with the patient and his 2 sisters in detail. It may be noticed that patient's legal guardian is Christ Pickett.
[2016-12-18] MEDS ORDERED: FUROSEMIDE 10 MG/ML 4 ML VIAL IV STA (20:21)
[2016-12-18 20:22] LABS: Glucose,Whole Blood 116 mg/dL (75-99)
--- NOTE | 2016-12-18 21:09 | XR ---
EXAMINATION TYPE: XR chest 2V DATE OF EXAM: 12/18/2016 8:58 PM COMPARISON: 12/18/2015 HISTORY: Short of breath TECHNIQUE: Frontal and lateral views of the chest are obtained. FINDINGS: There is no heart failure . There is slight coarsening of interstitial markings. There is probably a mild infiltrate at the left lung base. The bony thorax is intact. IMPRESSION: No heart failure. There is probably a new mild infiltrate at the left lung base compared to yesterday.
--- NOTE | 2016-12-18 21:13 | XR ---
EXAMINATION TYPE: XR sacrum coccyx DATE OF EXAM: 12/18/2016 8:58 PM COMPARISON: NONE HISTORY: Pain TECHNIQUE: 4 views FINDINGS: The segments have normal alignment. Sacroiliac joints appear intact. I see no fracture. IMPRESSION: Normal sacrum and coccyx exam.
[2016-12-18 21:26] LABS: Basophils # (A) 0.1 k/uL (0-0.2); Basophils % (A) 1 %; CH 32.6; CHCM 32.4; Eosinophils # (A) 0.1 k/uL (0-0.7); Eosinophils % (A) 0 %; HCT 46.8 % (39.0-53.0); HDW 2.22; HGB 15.1 gm/dL (13.0-17.5); Luc # (Auto) 0.21; Luc % (Auto) 1; Lymphocytes # (A) 1.6 k/uL (1.0-4.8); Lymphocytes % (A) 9 %; MCH 32.5 pg (25.0-35.0); MCHC 32.2 g/dL (31.0-37.0); MCV 101.2 fL (80.0-100.0); Macrocytosis Slight; Mean Platelet Volume 6.8; Monocytes # (A) 1.3 k/uL (0-1.0); Monocytes % (A) 8 %; Neutrophils # (A) 13.3 k/uL (1.3-7.7); Neutrophils % (A) 80 %; RBC 4.63 m/uL (4.30-5.90); RDW 13.9 % (11.5-15.5); WBC 16.6 k/uL (3.8-10.6); WBC (Perox) 17.46
[2016-12-18 21:35] LABS: ALT 56 U/L (21-72); AST 29 U/L (17-59); Alkaline Phosphatase 115 U/L (38-126); Anion Gap 9 mmol/L; Blood Urea Nitrogen 40 mg/dL (9-20); Carbon Dioxide 27 mmol/L (22-30); Chloride 98 mmol/L (98-107); Glucose 107 mg/dL (74-99); Non-African American GFR(MDRD) 53 (>60 ml/min/1.73 sqM); Potassium 4.7 mmol/L (3.5-5.1); Sodium 134 mmol/L (137-145); Total Protein 6.4 g/dL (6.3-8.2)
[2016-12-19 02:45] LABS: Glucose,Whole Blood 125 mg/dL (75-99)
--- NOTE | 2016-12-19 06:07 | CONS ---
DATE OF CONSULTATION: 12/18/2016 CHIEF COMPLAINT: Syncope. HISTORY OF PRESENT ILLNESS: The patient is a pleasant 71-year-old male who is being evaluated by the neurology service per the request of Dr. Urena for a syncopal spell. The patient was recently discharged from [facility] after he was found unresponsive on the floor. The patient resides in an adult foster longterm. No seizure-like activity was reported. The patient is a poor historian and does not recall what happened. He does not remember if he had any dizziness or chest palpitations. A CT scan of the brain was done in the emergency room which showed no acute intracranial abnormalities. Generalized atrophy was seen. The patient was admitted for further workup and management. At the time of my evaluation, the patient is sitting up in his bed and appears to be having frequent coughing episodes. He has been afebrile since his arrival. The patient has not had any further syncopal episodes since his admission. He denies any headache or dizziness. He is complaining of coccygeal area pain since this syncope. PAST MEDICAL HISTORY: Congestive heart failure, chronic obstructive pulmonary disease, diabetes, fibromyalgia, gastroesophageal reflux disease, dyslipidemia, hypertension, peripheral polyneuropathy, lipoma, cataracts, history of nephrolithiasis, history of cholecystectomy. The patient also has history of schizophrenia and depression. SOCIAL HISTORY: The patient resides at an adult foster longterm. He does smoke cigarettes daily. He denies any alcohol or drug use. FAMILY HISTORY: Noncontributory. HOME MEDICATIONS: Reviewed in the chart. ALLERGIES: PENICILLIN and KEFLEX. REVIEW OF SYSTEMS: CONSTITUTIONAL: Positive for fatigue. EYES: Positive for chronic diminished vision. ENT: Positive for chronic diminished hearing. CARDIOVASCULAR: Positive for congestive heart failure. He denies any chest pain at this time. RESPIRATORY: Positive for shortness of breath and frequent coughing. NEUROLOGICAL: As mentioned above. He denies any lateralizing numbness or weakness. GASTROINTESTINAL: Positive for occasional heartburn. GENITOURINARY: Negative. PSYCHIATRIC: Positive for history of depression and schizophrenia. ENDOCRINE: Positive for diabetes. DERMATOLOGICAL: Negative. MUSCULOSKELETAL: Positive for occasional joint pain, and as mentioned above. PHYSICAL EXAM: Vital signs show a temperature of 97.4, pulse 80, respirations 24, blood pressure 108/65. GENERAL APPEARANCE: The patient is a mildly obese, elderly male who appears to be in mild respiratory distress. HEENT: Normocephalic, atraumatic, no facial asymmetry is seen. Extraocular muscles are intact. Neck is supple with no masses felt. CARDIOVASCULAR: Regular rate and rhythm. ABDOMEN: Obese, nontender, nondistended. Extremities showed trace edema with no clubbing seen. NEUROLOGICAL EXAM: The patient is awake and oriented x3. Strength is 5 minus out of 5 in all 4 extremities. No pronator drift is seen. Sensory exam showed diminished light touch sensation in bilateral distal lower extremities. Sensation was normal in the upper extremities. No facial asymmetry is seen on cranial nerve testing. No tremors or seizure-like activity is seen. IMPRESSION: 1. Syncopal episode. 2. Coccygeal pain. 3. Recurrent cough. 4. Shortness of breath. RECOMMENDATIONS: The patient did have a syncopal episodes with no witnessed seizure-like activity. He has not had any lab tests since this admission. He has been having frequent coughs and some shortness of breath. A chest x-ray has been ordered, but this has not been completed as of yet. I do believe his syncopal episode was due to pulmonary etiology as he was likely hypoxic with a coughing spell. I reviewed his CT scan of the brain, which showed no acute abnormalities. An EEG has been ordered. I will order a CBC and comprehensive metabolic profile. The patient is complaining of some coccygeal pain. It is unclear if he injured this with his syncopal episode. I will order an x-ray of the sacrum and coccyx. Continue neurologic checks. I will continue to follow with you. Further recommendations to follow. Thank you for allowing me to participate in the care of your patient. If you have any questions, please feel free to contact me. SYDNEY
[2016-12-19] MEDS: IPRATROPIUM-ALBUTEROL 3 ML NEB INHALATION SCH ×7 (06:57→21:15)
[2016-12-19 07:02] LABS: Glucose,Whole Blood 119 mg/dL (75-99)
[2016-12-19 08:28] LABS: Anion Gap 8 mmol/L; Blood Urea Nitrogen 41 mg/dL (9-20); Calcium 9.1 mg/dL (8.4-10.2); Carbon Dioxide 28 mmol/L (22-30); Chloride 100 mmol/L (98-107); Glucose 117 mg/dL (74-99); Non-African American GFR(MDRD) >60 (>60 ml/min/1.73 sqM); Potassium 4.2 mmol/L (3.5-5.1); Sodium 136 mmol/L (137-145)
[2016-12-19] MEDS: INSULIN LISPRO (humaLOG) 300 UNIT/3 ML VIAL SQ SCH ×3 (08:42→18:07)
[2016-12-19] MEDS: PERPHENAZINE 4 MG TAB PO SCH ×2 (08:43→13:29)
[2016-12-19] MEDS: guaiFENesin 600 MG TABLET.ER PO SCH (08:44)
[2016-12-19] MEDS: LISINOPRIL-HCTZ 20-12.5 MG 1 EACH TAB PO SCH ×2 (08:44→21:10)
[2016-12-19] MEDS: CHOLECALCIFEROL 1,000 UNIT TAB PO SCH (08:44)
[2016-12-19] MEDS: SENNOSIDES-DOCUSATE SODIUM 1 EACH TAB PO SCH (08:44)
[2016-12-19] MEDS: FLUoxetine HCL 20 MG CAP PO SCH (08:44)
[2016-12-19] MEDS: PANTOPRAZOLE 40 MG TABLET PO SCH (08:44)
[2016-12-19] MEDS: LEVOFLOXACIN 500 MG TAB PO SCH (08:44)
[2016-12-19] MEDS: FUROSEMIDE 20 MG TAB PO SCH ×2 (08:44→17:34)
[2016-12-19] MEDS: ISOSORBIDE MONONITRATE 20 MG TAB PO SCH ×2 (08:44→17:34)
[2016-12-19] MEDS: metFORMIN 500 MG TAB PO SCH ×2 (08:44→17:33)
[2016-12-19] MEDS: EZETIMIBE 10 MG TAB PO SCH (08:44)
[2016-12-19] MEDS: ATENOLOL 50 MG TAB PO SCH (08:45)
[2016-12-19] MEDS: predniSONE 10 MG TAB PO SCH (08:45)
[2016-12-19] MEDS: LORATADINE 10 MG TAB PO SCH (08:45)
[2016-12-19] MEDS: hydrALAZINE HCL 25 MG TAB PO SCH ×3 (08:45→17:34)
[2016-12-19] MEDS: INSULIN GLARGINE 100 UNIT/ML 10 ML VIAL SQ SCH (08:46)
[2016-12-19] MEDS: NICOTINE 21MG/24HR PATCH TRANSDERM SCH (08:50)
[2016-12-19] MEDS: ACETAMINOPHEN TAB 325 MG TAB PO PRN (10:59)
[2016-12-19 11:22] LABS: Glucose,Whole Blood 203 mg/dL (75-99)
--- NOTE | 2016-12-19 12:37 | PN ---
DATE OF SERVICE: 12/19/2016 PRESENTING COMPLAINT: Near syncope. INTERVAL HISTORY: This is a 71-year-old male who has an extensive medical history who was discharged on 12/16/2016 following a diagnosis of COPD exacerbation. Patient has many medical comorbidities. When patient was discharged back to his [facility], he felt weak and actually went down. Patient states he never actually really passed out. Just tired and run down. Today, patient is more subdued. Patient's guardian was at the bedside and plan of care was discussed with patient and the guardian. Some concerns presented by guardian of the utility of [facility] versus physical therapy evaluation and possible placement for rehabilitation but patient at this time has no complaints. Nurse practitioner informed by the night nurse that patient had an episode of sudden onset shortness of breath for which he received an interval dose of Lasix and a chest x-ray, which revealed a small effusion, new mild infiltrate at the left lung base. Review of systems done for constitutional, cardiovascular, GI, pulmonary and relevant findings as above. CURRENT MEDICATIONS: DuoNeb, Lipitor, vitamin D3, Zetia, Prozac, Mucinex, Zestoretic, Apresoline, Levaquin, Claritin, nicotine patch, Protonix, Trilafon. GENERAL APPEARANCE: Patient appears tired, weak but conversant, no acute distress noted or voiced. EYES: Pupils equal, conjunctivae are normal. NECK: JVD not raised. Mass not palpable. LUNGS: Coarse breath sounds to the left lung field, clear to auscultation with diminished base on the right. Respiratory effort normal, unlabored. CARDIOVASCULAR: S1, S2 normal, trace edema noted to bilateral lower extremities. ABDOMEN: Soft, nontender. Liver and spleen not palpable. PSYCHIATRIC: Alert and oriented x3. Mood and affect are normal. INVESTIGATIONS: Chest x-ray mild new infiltrate at the left lung base. Sodium 136, potassium 4.2. Blood glucose 117. ASSESSMENT: 1. Near-syncope, could be vasovagal. 2. Chronic obstructive pulmonary disease in a current smoker. 3. Chronic nicotine dependence. Patient is a cigarette smoker, including pipe and cigars. 4. Chronic congestive heart failure from diastolic dysfunction. Ejection fraction not known. 5. Diabetes mellitus type 2, chronically on insulin. 6. Gastroesophageal reflux disease. 7. Hyperlipidemia. 8. Fibromyalgia. 9. Schizophrenia. PLAN: Patient will be gently hydrated. Will continue to get orthostatic vital signs on the patient. Will monitor chest x-ray. Patient started on Levaquin for new infiltrate on chest x-ray. Physical Therapy has been consulted to determine rehabilitation needs. On 12/19/2016, patient's guardian Christ Pickett was in to see the patient and discussed his concerns with [facility] versus rehabilitation and we reassured guardian that Physical Therapy would make thee recommendations and we would proceed from their recommendations. He was in agreement with that decision. The patient was seen and examined by nurse practitioner. Hillary Sanford and all elements of the case discussed with attending, Dr. Urena.
[2016-12-19 17:10] LABS: Glucose,Whole Blood 185 mg/dL (75-99)
[2016-12-19] MEDS: ATORVASTATIN 10 MG TAB PO SCH (17:34)
--- NOTE | 2016-12-19 17:41 | P.PN ---
Subjective Principal diagnosis: Syncope Is a pleasant 71-year-old male continue be evaluated by the neurology service in the [facility] ICU. He was recently discharged from [facility] before this admission where he was found unresponsive on the floor. We'll foster half-way. Episode there was syncope no seizure-like activity. A poor historian and does not exactly remember what happened. Recall that a computed tomography scan of the brain was done and showed no acute intracranial abnormalities. The sacrum and coccyx were done due to some pain he was having after the fall. The study was normal. He was found to have likely pneumonia and he is being treated. My exam he is resting comfortably in bed in no acute distress. Objective - Vital Signs Vital signs: Vital Signs Temp 98 F 12/19/16 15:00 Pulse 84 12/19/16 16:13 Resp 22 12/19/16 15:00 BP 108/65 12/19/16 15:00 Pulse Ox 92 L 12/19/16 15:00 Intake & Output 12/18/16 12/19/16 12/19/16 18:59 06:59 18:59 Intake Total 690 480 Balance 690 480 Weight 105.5 kg Intake: Oral 690 480 Other: Voiding Method Toilet Toilet # Voids 2 3 2 - Constitutional General appearance: Present: no acute distress, obese - EENT Eyes: Present: PERRLA. Absent: abnormal pupil, ptosis ENT: Present: hearing grossly normal - Neck Neck: Present: normal ROM. Absent: rigidity - Respiratory Respiratory: negative: prolonged expiration, prolonged inspiration - Cardiovascular Rhythm: regular - Gastrointestinal General gastrointestinal: Absent: distended, tenderness - Neurologic Neurologic Comment(s): Is alert awake and oriented 3. Sushil 5 minus out of 5 in all 4 extremities. There is mild diminished light touch in bilateral lower extremities. No facial asymmetry is seen. Tremors or seizure-like activities are seen. - Labs CBC & Chem 7: 12/18/16 21:06 12/19/16 07:42 Labs: Abnormal Lab Results - Last 24 Hours (Table) 12/18/16 12/18/16 12/18/16 Range/Units 20:21 21:06 21:06 WBC 16.6 H (3.8-10.6) k/uL MCV 101.2 H (80.0-100.0) fL Neutrophils # 13.3 H (1.3-7.7) k/uL Monocytes # 1.3 H (0-1.0) k/uL Sodium 134 L (137-145) mmol/L BUN 40 H (9-20) mg/dL Creatinine 1.33 H (0.66-1.25) mg/dL Glucose 107 H (74-99) mg/dL POC Glucose (mg/dL) 116 H (75-99) mg/dL 12/19/16 12/19/16 12/19/16 Range/Units 02:44 07:00 07:42 WBC (3.8-10.6) k/uL MCV (80.0-100.0) fL Neutrophils # (1.3-7.7) k/uL Monocytes # (0-1.0) k/uL Sodium 136 L (137-145) mmol/L BUN 41 H (9-20) mg/dL Creatinine (0.66-1.25) mg/dL Glucose 117 H (74-99) mg/dL POC Glucose (mg/dL) 125 H 119 H (75-99) mg/dL 12/19/16 12/19/16 Range/Units 11:20 16:57 WBC (3.8-10.6) k/uL MCV (80.0-100.0) fL Neutrophils # (1.3-7.7) k/uL Monocytes # (0-1.0) k/uL Sodium (137-145) mmol/L BUN (9-20) mg/dL Creatinine (0.66-1.25) mg/dL Glucose (74-99) mg/dL POC Glucose (mg/dL) 203 H 185 H (75-99) mg/dL Assessment and Plan (1) Pneumonia Status: Acute (2) Hypomagnesemia Status: Acute (3) Syncope and collapse Status: Acute (4) CHF (congestive heart failure) Status: Chronic (5) COPD exacerbation Status: Acute (6) Diabetes Status: Chronic (7) Dizziness Status: Resolved (8) Dyspnea Status: Acute (9) Schizophrenia Status: Chronic Plan: The patient syncopal episode was likely multifactorial. Again he has treating treated for an acute exacerbation of COPD. Is having some coughing spells and believes that may have contributed to his episode. Regardless we do not feel there is a significant neurological component to his symptoms. Continue treatment for his dehydration and infection. Barring any unforeseen abnormalities on the EEG, he would be cleared from a neurological standpoint. Next I have performed a history and physical on the above patient. I have reviewed the above note, and agree.
--- NOTE | 2016-12-19 19:43 | PN ---
DATE OF SERVICE: 12/19/2016 ATTENDING NOTE: This patient was seen and examined by me. Patient was admitted with falling, nearly passing out, felt to be vasovagal from deconditioning. Patient had an element of pneumonia and started on Levaquin. Physical therapy is involved. Patient tolerated diet. Feels somewhat better. Current medications are reviewed that include p.o. Levaquin. On examination, temperature 98.3, pulse 76, respirations 20, blood pressure 120/70, pulse ox 93% on room air. GENERAL APPEARANCE: Lying in bed. RESPIRATORY: Effort increased. LUNGS: Decreased breath sounds. INVESTIGATIONS: Potassium 4.2. BUN 41, creatinine 1.18. ASSESSMENT: 1. Near syncope, probably vasovagal from deconditioning. 2. Chronic obstructive pulmonary disease. 3. Possible pneumonia, suspect gram-negative organism. 4. Medical debility from deconditioning and multiple medical problems. PLAN: PT, OT was consulted. The patient may need inpatient rehab. Will see how he does and go from there.
[2016-12-19 21:02] LABS: Glucose,Whole Blood 134 mg/dL (75-99)
[2016-12-19] MEDS ORDERED: SODIUM CHLORIDE 0.9% 500 ML IV ONE (21:15)
[2016-12-20 02:50] LABS: Glucose,Whole Blood 154 mg/dL (75-99)
[2016-12-20] MEDS: ACETAMINOPHEN TAB 325 MG TAB PO PRN ×2 (07:06→12:33)
[2016-12-20 07:20] LABS: Glucose,Whole Blood 187 mg/dL (75-99)
[2016-12-20] MEDS: INSULIN GLARGINE 100 UNIT/ML 10 ML VIAL SQ SCH (07:59)
[2016-12-20] MEDS: INSULIN LISPRO (humaLOG) 300 UNIT/3 ML VIAL SQ SCH ×2 (08:00→12:28)
[2016-12-20] MEDS: FLUoxetine HCL 20 MG CAP PO SCH (08:01)
[2016-12-20] MEDS: ATENOLOL 50 MG TAB PO SCH (08:02)
[2016-12-20] MEDS: LORATADINE 10 MG TAB PO SCH (08:02)
[2016-12-20] MEDS: FUROSEMIDE 20 MG TAB PO SCH (08:02)
[2016-12-20] MEDS: metFORMIN 500 MG TAB PO SCH ×2 (08:02→16:10)
[2016-12-20] MEDS: PANTOPRAZOLE 40 MG TABLET PO SCH (08:02)
[2016-12-20] MEDS: guaiFENesin 600 MG TABLET.ER PO SCH (08:02)
[2016-12-20] MEDS: predniSONE 10 MG TAB PO SCH (08:02)
[2016-12-20] MEDS: CHOLECALCIFEROL 1,000 UNIT TAB PO SCH (08:02)
[2016-12-20] MEDS: LEVOFLOXACIN 500 MG TAB PO SCH (08:02)
[2016-12-20] MEDS: hydrALAZINE HCL 25 MG TAB PO SCH ×2 (08:02→12:28)
[2016-12-20] MEDS: EZETIMIBE 10 MG TAB PO SCH (08:02)
[2016-12-20] MEDS: PERPHENAZINE 4 MG TAB PO SCH ×2 (08:03→12:28)
[2016-12-20] MEDS: SENNOSIDES-DOCUSATE SODIUM 1 EACH TAB PO SCH (08:03)
[2016-12-20] MEDS: NICOTINE 21MG/24HR PATCH TRANSDERM SCH (08:03)
[2016-12-20] MEDS: IPRATROPIUM-ALBUTEROL 3 ML NEB INHALATION SCH ×4 (08:19→16:12)
[2016-12-20 11:57] LABS: Glucose,Whole Blood 180 mg/dL (75-99)
[2016-12-20] MEDS: LISINOPRIL-HCTZ 20-12.5 MG 1 EACH TAB PO SCH (12:28)
[2016-12-20] MEDS: ISOSORBIDE MONONITRATE 20 MG TAB PO SCH ×2 (12:28→15:32)
--- NOTE | 2016-12-20 13:02 | PN ---
DATE OF SERVICE: 12/20/2016 PRESENTING COMPLAINT: Near syncope. INTERVAL HISTORY: This is a 71-year-old male who has extensive medical history was discharged on 12/16/2016 following a diagnosis of COPD exacerbation. Patient has many medical comorbidities. Patient was readmitted to the hospital with falling nearly passing out episode, felt to be vasovagal in nature from deconditioning. Patient did have an element of pneumonia and was started on Levaquin. Physical therapy has been involved in the patient's care and evaluation for placement at rehab or returning him back to his longterm. Today patient is noncompliant, not cooperative, does not want to take medications. Does not want to eat his meals. Just wants to "rest". CURRENT MEDICATIONS: Levaquin. Review of systems done for constitutional, cardiovascular, GI, pulmonary with relevant findings as above PHYSICAL EXAM: VITAL SIGNS: Temperature 97.7, pulse 87, blood pressure 104/58, oxygen 92% on room air. GENERAL APPEARANCE: Patient lying in bed, not cooperative. Does not want to be bothered, does not want to eat his meal, and refusing to take medications. EYES: Pupils are equal. Conjunctivae normal. NECK: JVD not raised. Mass not palpable. LUNGS: Coarse breath sounds to left lung field, clear to auscultation with diminished bases on the right/ Respiratory effort normal, unlabored. CARDIOVASCULAR: S1, S2 normal. Trace edema noted bilateral lower extremities. ABDOMEN: Soft, nontender. Liver and spleen not palpable. PSYCHIATRIC: Alert and oriented x3. Mood and affect are normal. INVESTIGATIONS: Blood glucose monitoring 187. EEG pending. ASSESSMENTS: 1. Near syncope, probably vasovagal from deconditioning. 2. Chronic obstructive pulmonary disease. 3. Possible pneumonia, suspect gram-negative organism. 4. Medical debility from deconditioning and multiple medical problems. 5. Chronic nicotine dependence. Patient is a current cigarette smoker including pipes and cigars. 6. Chronic congestive heart failure from diastolic dysfunction, ejection fraction not known. 7. Diabetes mellitus type 2, chronically on insulin. 8. Gastroesophageal reflux disease. 9. Hyperlipidemia. 10. Fibromyalgia. 11. Schizophrenia. PLAN: PT and OT was consulted and is seeing the patient. Patient may require inpatient rehab rather than being sent back to his longterm. Patient was seen and examined by WINE PASTEURIZER, Hillary Sanford, and all elements of the case discussed with attending, Dr. Urena.
[2016-12-20 15:31] VITALS: BP 103/54; PULSE 79; RESP 20; TEMP 97.9
--- NOTE | 2016-12-20 15:45 | DS ---
DATE OF ADMISSION: 12/17/2016 DATE OF DISCHARGE: 12/20/2016 FINAL DIAGNOSES: 1. Near-syncope; could be vasovagal from hypotension from diuretics, present on admission. 2. Chronic obstructive pulmonary disease in a current smoker. 3. Chronic nicotine dependence. Patient is a cigarette smoker, including pipe and cigar. 4. Chronic congestive heart failure from diastolic dysfunction, ejection fraction 50% to 60%. 5. Gastroesophageal reflux disease. 6. Diabetes mellitus, type 2, chronically on insulin. 7. Hyperlipidemia. 8. Fibromyalgia. 9. Schizophrenia. 10. Pneumonia; suspect Gram-negative organism; present on admission. HOSPITAL COURSE: This patient presented with nearly passing out, found to be hypotensive. BUN and creatinine were actually up; 1.33. Patient's 2-D echocardiogram last year showed an EF of 55% to 60%. Patient's Lasix has been discontinued. Creatinine did come down. Patient is doing better. Patient did tolerate a diet; has been up to the bathroom a few times. Patient is rather deconditioned; therefore needs inpatient rehab. Care was discussed with the patient. Patient has a legal guardian, Christ Pickett. The patient was also diagnosed to have pneumonia and was started on antibiotics. DISCHARGE MEDICATIONS: 1. Zetia 10 mg p.o. daily. 2. Prozac 40 mg p.o. daily. 3. Lantus 30 units subcutaneously daily. 4. Prilosec 20 mg p.o. daily. 5. Senokot-S 1 tablet p.o. daily. 6. Vitamin D3 5000 units p.o. daily. 7. Mucinex 600 mg p.o. daily. 8. Imdur 20 mg p.o. b.i.d. 9. Trilafon 4 mg p.o. daily at noon; 8 mg p.o. at 8 a.m. 10. Zocor 20 mg p.o. daily at 3 p.m. 11. Metformin 1000 mg b.i.d. 12. Humalog 4 units before meals t.i.d. 13. DuoNeb t.i.d. 14. Zestoretic 20/12.5 one tablet p.o. b.i.d. 15. Nicotine patch daily. 16. Pulmicort 0.5 mg p.o. b.i.d. 17. Ceftin 500 mg p.o. b.i.d. for 10 tablets. CONSULTATION: Dr. Herrera from Neurology. [facility] Patient's legal guardian is Christ Pickett. Discharge planning more than 35 minutes. On examination, lungs have decreased breath sounds. CARDIOVASCULAR: First and second sounds normal. Patient is able to answer questions.
[2016-12-20] MEDS: ATORVASTATIN 10 MG TAB PO SCH (16:09)
[2016-12-21] MEDS ORDERED: ATENOLOL 25 MG TAB PO SCH (09:00)
--- NOTE | 2016-12-21 11:18 | EEG ---
DATE OF SERVICE: 12/20/2016 REASON FOR TESTING: Syncope. AGE: 71Y DESCRIPTION OF THE PROCEDURE: This EEG was performed using a 21-channel digital electroencephalograph, following the international 10 - 20 system. DESCRIPTION OF THE RECORDING: From the beginning of the tracing, and with the patient's eyes closed, the background rhythm was mostly consisting of 8 Hz alpha frequency in the posterior occipital leads. No obvious asymmetry is seen. Recurrent muscle and movement artifacts are seen. Sweat artifact was also noticed. Photic stimulation was performed with a minimal driving response seen. No pathological waves were elicited. Hyperventilation was not performed. The patient remains awake throughout the tracing. No epileptiform discharges were seen. His EKG lead showed a regular rate and rhythm. INTERPRETATION: This awake EEG can be considered within normal limits. There was no asymmetry seen. No epileptiform discharges were noticed. The absence of epileptiform discharges does not rule out the diagnosis of epilepsy, therefore, clinical correlation is recommended.
== END 2016-12-20 16:41 | DRG 312 ==
LOC: EC 19:52 → 5MS5E 22:21
PROVIDERS: ADMIT Hospitalist; ATTEND Hospitalist
DX: I95.2 Hypotension due to drugs (principal); J15.6 Pneumonia due to other Gram-negative bacteria; I11.0 Hypertensive heart disease with heart failure; I50.32 Chronic diastolic (congestive) heart failure; E11.42 Type 2 diabetes mellitus with diabetic polyneuropathy; J44.0 Chronic obstructive pulmonary disease with (acute) lower respiratory infection; J44.1 Chronic obstructive pulmonary disease with (acute) exacerbation; T50.2X5A Adverse effect of carbonic-anhydrase inhibitors, benzothiadiazides and other diuretics, initial encounter; E83.42 Hypomagnesemia; F20.9 Schizophrenia, unspecified; E78.5 Hyperlipidemia, unspecified; K21.9 Gastro-esophageal reflux disease without esophagitis; M79.7 Fibromyalgia; M53.3 Sacrococcygeal disorders, not elsewhere classified; F32.9 Major depressive disorder, single episode, unspecified; F17.210 Nicotine dependence, cigarettes, uncomplicated; I77.810 Thoracic aortic ectasia; H26.9 Unspecified cataract; Z87.442 Personal history of urinary calculi; Z91.19 Patient's noncompliance with other medical treatment and regimen; Z90.49 Acquired absence of other specified parts of digestive tract; Z79.84 Long term (current) use of oral hypoglycemic drugs; Z79.4 Long term (current) use of insulin; Z79.51 Long term (current) use of inhaled steroids; Z79.52 Long term (current) use of systemic steroids; Z79.899 Other long term (current) drug therapy
CPT/HCPCS: 36415; 70450; 71010; 71020; 72125; 72170; 72220; 80048; 80053; 81003; 82550; 82553; 83735; 84484; 85025; 85610; 85730; 93005; 94640; 95819; 96361; 96365; 99291

== ENCOUNTER 2019-08-12 12:29 | Emergency (ER) | payer MEDICARE, OTHER ==
--- NOTE | 2019-08-12 12:58 | ED ---
Weakness HPI - General Stated complaint: weakness Time Seen by Provider: 08/12/19 12:29 Source: patient, EMS, RN notes reviewed, old records reviewed Mode of arrival: EMS - History of Present Illness Initial comments: This is a 74-year-old male history diabetes who was present in by EMS with complaints of weakness this evening progressively worse. He states that 2 days ago he did fall and hit his head on a nightstand to having a headache since he's had more weakness generally. He has also related that he's had right upper extremity weakness but this is a long-standing problem. She'll nausea vomiting sweats he does state he's had decreased oral intake. MD Complaint: generalized weakness, difficulty walking - Related Data Home Medications Medication Instructions Recorded Confirmed Ezetimibe [Zetia] 10 mg PO DAILY@0800 10/05/15 12/17/16 FLUoxetine HCL [PROzac] 40 mg PO DAILY@0800 10/05/15 12/17/16 Insulin Glargine [Lantus] 30 unit SQ DAILY@0800 10/05/15 12/17/16 Omeprazole [PriLOSEC] 20 mg PO DAILY@0800 10/05/15 12/17/16 Sennosides-Docusate Sodium 1 tab PO DAILY@0800 10/05/15 12/17/16 [Senokot-S] Cholecalciferol [Vitamin D3 (25 5,000 unit PO DAILY@0800 02/05/16 12/17/16 Mcg = 1000 Iu)] guaiFENesin [Mucinex] 600 mg PO DAILY@0800 02/05/16 12/17/16 Isosorbide Mononitrate 20 mg PO BID@0800,1500 11/28/16 12/17/16 Perphenazine [Trilafon] 4 mg PO DAILY@1200 11/28/16 12/17/16 Perphenazine [Trilafon] 8 mg PO DAILY@0800 11/28/16 12/17/16 Simvastatin [Zocor] 20 mg PO DAILY@1500 11/28/16 12/17/16 metFORMIN HCL 1,000 mg PO BID@0800,1700 12/14/16 12/17/16 Previous Rx's Medication Instructions Recorded INSULIN LISPRO (HumaLOG) [humaLOG] 4 units SQ AC-TID #1 vial 12/17/16 Ipratropium-Albuterol Nebulize 3 ml INHALATION TID #90 ampul.neb 12/17/16 [Duoneb 0.5 mg-3 mg/3 ml Soln] Lisinopril-Hctz 20-12.5 mg 1 each PO BID #60 tab 12/17/16 [Zestoretic 20-12.5] Nicotine 21Mg/24Hr Patch [Habitrol] 1 patch TRANSDERM DAILY #14 patch 12/17/16 Budesonide [Pulmicort] 0.5 mg INHALATION BID #1 neb 12/20/16 Cefuroxime Axetil [Ceftin] 500 mg PO BID #10 tab 12/20/16 Allergies Allergy/AdvReac Type Severity Reaction Status Date / Time cephalexin monohydrate Allergy Unknown Verified 12/17/16 20:06 [From Keflex] Penicillins Allergy Unknown Verified 12/17/16 20:06 Review of Systems ROS Statement: Those systems with pertinent positive or pertinent negative responses have been documented in the HPI. ROS Other: All systems not noted in ROS Statement are negative. Past Medical History Past Medical History: Heart Failure, COPD, Diabetes Mellitus, Fibromyalgia, GERD/Reflux, Hyperlipidemia, Hypertension Additional Past Medical History / Comment(s): IDDM type II, neuropathy bilateral feet with past sores, refuses home oxygen and updraft tx, L eye thick cataract, bilateral dry eyes, fatty tumor posterior neck, recent fall 1 week ago with L humerus fracture-not casted-uses a sling-orhtopedic physician instructed he can use arm minimally-no lifting shoulder up or picking up weight, possible hx of kidney stones per pt. History of Any Multi-Drug Resistant Organisms: None Reported Past Surgical History: Cholecystectomy Additional Past Surgical History / Comment(s): Possible hx of surgery for kidney stones per pt. Past Anesthesia/Blood Transfusion Reactions: No Reported Reaction Past Psychological History: Depression, Schizophrenia Additional Psychological History / Comment(s): Pt resides at [facility]. He ambulates without device. He has visiting physician and visiting nurse. He refuses home O2 and home updraft txs. Pt recently learned his 2 out of state sisters are selling the family home. This has made him sad and when he is sad, he gets more obstenate with meds etc per caretakers. His sisters send him letters and care packages often. He writes letters as well. Smoking Status: Current every day smoker Past Alcohol Use History: None Reported Additional Past Alcohol Use History / Comment(s): Smokes cigarettes : 1.5 ppd, occasional cigar and pipe. Past Drug Use History: None Reported - Past Family History Mother History Unknown: Yes Father History Unknown: Yes General Exam - General Exam Comments Initial Comments: This is a well-developed well-nourished awake alert male who is somewhat slow to respond General appearance: alert, lethargic Head exam: Present: normocephalic, other (Tennis palpation of the right occiput with no step-off or crepitation he does demonstrate a lipoma to the right of mid line neck cephalad.) Eye exam: Present: normal appearance, PERRL, EOMI. Absent: scleral icterus, conjunctival injection, periorbital swelling ENT exam: Present: normal exam, mucous membranes moist Neck exam: Present: normal inspection, full ROM, other (No stridor JVD or bruits the patient does have a lipoma mentioned above). Absent: tenderness, meningismus, lymphadenopathy Respiratory exam: Present: normal lung sounds bilaterally. Absent: respiratory distress, wheezes, rales, rhonchi, stridor Cardiovascular Exam: Present: regular rate, normal rhythm, normal heart sounds. Absent: systolic murmur, diastolic murmur, rubs, gallop, clicks GI/Abdominal exam: Present: soft, normal bowel sounds. Absent: distended, tenderness, guarding, rebound, rigid Extremities exam: Present: normal inspection, full ROM, normal capillary refill, pedal edema. Absent: tenderness, joint swelling, calf tenderness Back exam: Present: normal inspection Neurological exam: Present: alert, oriented X3, CN II-XII intact Psychiatric exam: Present: normal affect, normal mood Skin exam: Present: warm, dry, intact, normal color. Absent: rash Course Vital Signs 08/12/19 08/12/19 12:44 13:10 Temperature 98.3 F Pulse Rate 90 Respiratory 26 H 26 H Rate Blood Pressure 112/85 O2 Sat by Pulse 99 Oximetry - Reevaluation(s) Reevaluation #1: 08/12/19 14:36 Reevaluation patient several occasions revealed no changes mentation or mental status. Remain awake and alert and responsive. The caregiver did present to the emergency department and did give further history apparently the patient fell 5 days ago striking the back of his head against a nightstand. He was attempting to sit in a chair and apparently chair scooted out from underneath him. Patient complains some right occipital pain but did refuse medical care at that time was asked to 3 days patient's been demonstrating urinary incontinence and increased weakness to the lower extremities. Per the caregiver he otherwise is been not too much of that is usual self up. He has been unable to use his walker however. EKG Findings - EKG Results: EKG: interpreted by LADONNA (Sinus rhythm of 82. Interval 164 QRS 64 QT since QTC 450/525 nonspecific T-wave configuration) Medical Decision Making - Medical Decision Making I did discuss the findings with the patient and with the caregiver. Patient will require neurosurgical evaluation. Patient will be transferred to [facility] at [facility] discuss the case with Dr. De León who is agreed to accept the patient in transfer at [facility] discuss case also with the trauma resident. At this time the patient does remain awake and alert no distress with stable vital signs. - Lab Data Result diagrams: 08/12/19 12:59 08/12/19 12:59 Lab Results 08/12/19 08/12/19 08/12/19 Range/Units 12:59 12:59 12:59 WBC 6.3 (3.8-10.6) k/uL RBC 3.89 L (4.30-5.90) m/uL Hgb 12.2 L (13.0-17.5) gm/dL Hct 37.0 L (39.0-53.0) % MCV 95.2 (80.0-100.0) fL MCH 31.4 (25.0-35.0) pg MCHC 33.0 (31.0-37.0) g/dL RDW 13.0 (11.5-15.5) % Plt Count 236 (150-450) k/uL Neutrophils % 70 % Lymphocytes % 19 % Monocytes % 7 % Eosinophils % 2 % Basophils % 0 % Neutrophils # 4.4 (1.3-7.7) k/uL Lymphocytes # 1.2 (1.0-4.8) k/uL Monocytes # 0.5 (0-1.0) k/uL Eosinophils # 0.1 (0-0.7) k/uL Basophils # 0.0 (0-0.2) k/uL Sodium 137 (137-145) mmol/L Potassium 4.5 (3.5-5.1) mmol/L Chloride 102 (98-107) mmol/L Carbon Dioxide 30 (22-30) mmol/L Anion Gap 5 mmol/L BUN 23 H (9-20) mg/dL Creatinine 1.25 (0.66-1.25) mg/dL Est GFR (CKD-EPI)AfAm 65 (>60 ml/min/1.73 sqM) Est GFR (CKD-EPI)NonAf 56 (>60 ml/min/1.73 sqM) Glucose 184 H (74-99) mg/dL Calcium 9.7 (8.4-10.2) mg/dL Magnesium 1.6 (1.6-2.3) mg/dL Total Bilirubin 0.6 (0.2-1.3) mg/dL AST 34 (17-59) U/L ALT 27 (4-49) U/L Alkaline Phosphatase 68 (38-126) U/L Creatine Kinase 513 H (55-170) U/L Troponin I <0.012 (0.000-0.034) ng/mL Total Protein 6.4 (6.3-8.2) g/dL Albumin 3.6 (3.5-5.0) g/dL - Radiology Data Radiology results: report reviewed (I did review the imaging and did discuss the case with the radiologist. Patient does have a right subdural hematoma Dony 3 mm thick with 7 mm of shift to the left and some inferior shifting additionally. Please see the complete report), image reviewed Critical Care Time Critical Care Time: Yes Critical Care Time: 31 minutes of critical care time which includes initial presentation with [facility] physical labs x-rays also reevaluation the patient and evaluate her responsiveness discussed with the patient's caregiver discussed with the receiving facility personnel as well as discussed with paramedics. Disposition Clinical Impression: Subdural hematoma, post-traumatic, Fall Disposition: OTHER INSTITUTION NOT DEFINED Condition: Serious Referrals: Vernno Khan MD [Primary Care Provider] - 1-2 days - Out of Hospital Transfer - Req. Specs Out of Hospital Transfer - Requested Specifics: Other Emergency Center
[2019-08-12 13:05] VITALS: TEMP 98.3
--- NOTE | 2019-08-12 13:23 | XR ---
EXAMINATION TYPE: XR chest 2V DATE OF EXAM: 08/12/2019 COMPARISON: 12/18/2016 HISTORY: 74-year-old male weakness and frequent falls TECHNIQUE: AP and lateral views FINDINGS: Heart upper limits of normal in size. Aorta within normal limits. Patchy mid and lower lung densities . No sizable effusion. IMPRESSION: Patchy mid and lower lung densities could represent atelectasis or mild infiltrates.
[2019-08-12 13:24] LABS: Albumin 3.6 g/dL (3.5-5.0); Calcium 9.7 mg/dL (8.4-10.2); Magnesium 1.6 mg/dL (1.6-2.3); Potassium 4.5 mmol/L (3.5-5.1); Total Bilirubin 0.6 mg/dL (0.2-1.3); Total Protein 6.4 g/dL (6.3-8.2)
[2019-08-12 13:26] LABS: Basophils % (A) 0 %; Eosinophils # (A) 0.1 k/uL (0-0.7); Eosinophils % (A) 2 %; HGB 12.2 gm/dL (13.0-17.5); Lymphocytes # (A) 1.2 k/uL (1.0-4.8); Lymphocytes % (A) 19 %; MCH 31.4 pg (25.0-35.0); MCV 95.2 fL (80.0-100.0); Mean Platelet Volume 7.3; Monocytes # (A) 0.5 k/uL (0-1.0); Monocytes % (A) 7 %; Neutrophils # (A) 4.4 k/uL (1.3-7.7); Neutrophils % (A) 70 %; Platelet Count 236 k/uL (150-450); RBC 3.89 m/uL (4.30-5.90); WBC 6.3 k/uL (3.8-10.6)
--- NOTE | 2019-08-12 14:03 | CT ---
EXAMINATION TYPE: CT brain cspine wo con DATE OF EXAM: 08/12/2019 COMPARISON: Brain 12/17/2016 HISTORY: 74-year-old male fall with head and neck pain, neck mass, Weakness CT DLP: 1453.4 mGycm Automated exposure control for dose reduction was used. Technique: Examination of the head was done in axial plane without intravenous contrast. Coronal and sagittal reconstructions performed. CT of the cervical spine was obtained in axial plane without intravenous injection of contrast mater ial. Coronal and sagittal reformatted images were obtained from the axial views for evaluation of f ractures, spinal alignment and canal. FINDINGS: Head: There is a new moderate to large subdural hematoma along the right lateral convexity extending from f ront to back measuring up to 3.0 cm. There is layering hematocrit level and some additional intermixe d hyperdensity more anteriorly within the subdural collection. There is mass effect onto the underlying brain parenchyma with flattening of the right lateral ventri casi and 7 mm of leftward midline shift. There is subfalcine herniation and early medial uncal herniat ion. No downward transtentorial herniation. Atherosclerotic calcifications within the carotid siphons. Paranasal sinuses and mastoid air cells well pneumatized. Old blowout fracture left medial orbital wa ll. Cervical spine: Motion artifacts. No craniocervical junction abnormality, predental space widening, or prevertebral s oft tissue swelling. Cervicothoracic junction is excluded and not evaluated. Moderate to advanced multilevel disc/endplate degenerative change. Alignment for the extensive motion artifacts, no definite acute fracture of the cervical spine. Visualized alignment is maintained. Variable moderate to severe bilateral neuroforaminal stenoses. Retropharyngeal course of the right IC A. 5.0 x 2.7 cm subcutaneous lipoma posteriorly. Sagittal and coronal reformatted images confirm above findings. COMBINED IMPRESSION: 1. Moderate to large, 3 cm thick, right subdural hematoma, suspect mixed acute and subacute component s. A layering hematocrit level is present. Query anticoagulation status. 2. There is mass effect onto the underlying brain parenchyma with flattening of the right lateral hermilo tricle and 7 mm of leftward midline shift. 3. Subfalcine herniation and early right-sided medial uncal herniation. 4. Cervical spine is limited. The cervicothoracic junction is excluded and not evaluated. There is al so extensive motion artifact. Moderate to advanced multilevel spondylotic change. No definite acute f racture identified. 5. 5.0 cm subcutaneous lipoma posteriorly. Critical findings called to Dr. Miller in the ER at 1:58 PM.
[2019-08-12 15:01] LABS: Partial Thromboplastin Time 26.7 sec (22.0-30.0); Prothrombin Time 10.3 sec (9.0-12.0)
[2019-08-12 15:04] VITALS: BP 130/65; PULSE 77; RESP 16
[2019-08-12 15:40] LABS: Appearance,Urine Clear (Clear); Bilirubin,Urine Negative (Negative); Blood,Urine Negative (Negative); Color,Urine Light Yellow; Glucose,Urine (UA) Negative (Negative); Hyaline Casts,Urine 3 /lpf (0-2); Ketones,Urine Negative (Negative); Leukocyte Esterase,Urine Negative (Negative); Nitrite,Urine Negative (Negative); PH, Urine 5.5 (5.0-8.0); Protein,Urine 1+ (Negative); RBC,Urine <1 /hpf (0-5); Specific Gravity,Urine 1.009 (1.001-1.035); Squamous Epithelial Cell,Urine <1 /hpf (0-4); Urobilinogen,Urine <2.0 mg/dL (<2.0); WBC,Urine 1 /hpf (0-5)
== END 2019-08-12 15:27 | disposition other institution (70) ==
LOC: EC 12:29
DX: S06.5X9A Traumatic subdural hemorrhage with loss of consciousness of unspecified duration, initial encounter (principal); I11.0 Hypertensive heart disease with heart failure; I50.9 Heart failure, unspecified; E78.5 Hyperlipidemia, unspecified; E11.40 Type 2 diabetes mellitus with diabetic neuropathy, unspecified; F32.9 Major depressive disorder, single episode, unspecified; F17.210 Nicotine dependence, cigarettes, uncomplicated; K21.9 Gastro-esophageal reflux disease without esophagitis; J44.9 Chronic obstructive pulmonary disease, unspecified; Z79.4 Long term (current) use of insulin; Z79.84 Long term (current) use of oral hypoglycemic drugs; Z79.899 Other long term (current) drug therapy; Z88.0 Allergy status to penicillin; Z88.1 Allergy status to other antibiotic agents
CPT/HCPCS: 36415; 70450; 71046; 72125; 80053; 81001; 82550; 83735; 84484; 85025; 85610; 85730; 93005; 99291